=== PATIENT | female | born 1990 | race Caucasian/White ===

== ENCOUNTER → 2019-05-03 14:10 | Outpatient (BNVA) | payer MEDICAID, SELFPAY | PROVIDERS: Family Provider Family Medicine; Visit Provider Nurse Practitioner Family | DX: J02.9 Acute pharyngitis, unspecified (principal) | CPT/HCPCS: 87081; 87880 ==

== ENCOUNTER 2019-05-11 19:18 | Emergency (ER) | payer MEDICAID, SELFPAY | END 2019-05-11 20:53 | disposition home or self-care (01) | LOC: ER 05-21 10:06 | PROVIDERS: Emergency Provider Nurse Practitioner Family; Family Provider Family Medicine | DX: R59.1 Generalized enlarged lymph nodes (principal); J02.9 Acute pharyngitis, unspecified ==

== ENCOUNTER 2019-05-11 19:18 | Emergency (ER) | payer MEDICAID, SELFPAY ==
[2019-05-11 19:21] VITALS: BP 122/77; PULSE 73; RESP 18; TEMP 36.5; O2SAT 100; BMI 21.5
--- NOTE | 2019-05-11 19:43 | XR_ITS ---
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 There is postop changes through the talus with 3 pins seen in the area. These appear to be well posit ioned with no loosening. Pins extend through the calcaneus into the talus with fusion of the joint. XR/XR foot RT min 3V* [id number] IMPRESSION: Stable fusion of a calcaneal talar joint. 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
--- NOTE | 2019-05-11 19:43 | XR_ITS ---
WS: [id number] XR ankle RT min 3V* [id number] REASON FOR EXAM: pain FINDINGS: Fusion of the calcaneal talar joint satisfactory fused. Mild degenerate changes at the ankle mortise including the fibula and lateral tibia. The remaining mortise was normal. XR/XR ankle RT min 3V* [id number] IMPRESSION: Mild degenerate changes along the lateral ankle mortise articulation with the f ibula.
--- NOTE | 2019-05-11 19:46 | ED_ITS ---
HPI - General Adult General: Chief complaint: Nausea/Vomiting/Diarrhea Stated complaint: vomiting/not urinating Time Seen by Provider: 05/11/19 19:26 History of Present Illness: HPI narrative: Patient is worried about swollen lymph glands. Has been nauseated today. Was placed on Keflex earlier in the week was treated for enlarged lymph nodes empiric therapy says ankle and foot hurts has a screw backing out to the heel. Limb close feel better when on anti biotics and when off antibiotics it seems worse MD complaint: Painful lymph nodes Onset (ago): day(s) Radiation: neck Severity: mild Quality: aching Associated symptoms: Deny chest pain, dyspnea, headache(s), nausea, rash or vomiting Review of Systems Const: Denies: fever, chills or body aches Eyes: Denies: change in vision or blurry vision ENMT: Denies: throat pain or nasal congestion Card: Denies: chest pain or shortness of breath on exertion Resp: Denies: shortness of breath, productive cough or non-productive cough GI: Denies: abdominal pain, nausea or vomiting Musc: Reports: extremity pain (Right foot heel) Skin/Breast: Denies: rash Neuro: Denies: headache Psych: Denies: anxiety or depression Hao/Lymph: Reports: tender lymph nodes (Left side neck); Denies: easy bruising PFSH ED PFSH: Social History (Updated 05/11/19 @ 18:04 by Mariela Bowman LPN) Smoking and tobacco status: never smoked Alcohol intake: current Alcohol intake frequency: holidays/special occasions only Course Vital Signs: Vital signs: Vital Signs Temperature 97.7 F 05/11/19 19:21 Pulse Rate 73 05/11/19 19:21 Respiratory Rate 18 05/11/19 19:21 Blood Pressure 122/77 05/11/19 19:21 Pulse Oximetry 100 05/11/19 19:21 Discharge Plan Discharge Prescriptions: No Action cephalexin 500 mg capsule 500 mg PO TID 10 Days Qty: 30 RF: 0 Marinol 5 mg Capsule 5 mg PO TID RF: 0 Coding Level of Care Code ED Travel Registered Nurse Nicu for Jd Alvarez
--- NOTE | 2019-05-11 20:01 | PC.NURSE ---
portable xray at bedside
[2019-05-11 20:02] VITALS: O2SAT 95
[2019-05-11 20:18] LABS: Basophils % 0.2 %; Hematocrit 41.9 % (37.0-47.0); Hemoglobin 13.7 g/dL (11.5-15.3); Lymphocytes # 1.4 10^3/uL (0.8-4.8); Lymphocytes % 26.2 %; Mean Corpuscular HGB Conc 32.7 g/dL (30.0-36.0); Mean Corpuscular Hemoglobin 28.4 pg (28.0-34.0); Mean Corpuscular Volume 86.9 fL (81-99); Mean Platelet Volume 12.4 fL (7.4-10.4); Monocytes # 0.4 10^3/uL (0.2-0.9); Monocytes % 6.7 %; Neutrophils # 3.7 10^3/uL (1.8-7.7); Neutrophils % 66.7 %; Nucleated Red Blood Cells % 0 %; Platelet Count 163 10^3/cmm (130-400); Red Blood Count 4.82 10^6/uL (4.1-5.3); White Blood Count 5.5 10^3/uL (4.0-10.0)
[2019-05-11 20:41] LABS: Alanine Aminotransferase 10 U/L (0-33); Albumin Level 4.6 g/dL (3.5-5.2); Alkaline Phosphatase 70 IU/L (35-105); Anion Gap 17.9 (5-19); Aspartate Amino Transferase 20 U/L (0-32); Blood Urea Nitrogen 9 mg/dL (6-20); Calcium 10.2 mg/dL (8.5-10.5); Carbon Dioxide 24 mmol/L (22-29); Chloride 101 mmol/L (98-107); Globulin 3.2 g/dL (1.3-4.6); Glomerular Filtration Rate 98.3 mL/min (90-130); Glucose 103 mg/dL (65-115); Potassium 3.9 mmol/L (3.5-5.1); Sodium 139 mmol/L (136-145); Total Bilirubin 0.3 mg/dL (0.15-1.2); Total Protein 7.8 g/dL (6.6-8.7)
[2019-05-11 20:53] VITALS: BP 115/77; PULSE 77; O2SAT 97
== END 2019-05-11 20:53 | disposition home or self-care (01) ==
PROVIDERS: Emergency Provider Nurse Practitioner Family; Family Provider Family Medicine
DX: R11.2 Nausea with vomiting, unspecified (principal); R19.7 Diarrhea, unspecified; R59.0 Localized enlarged lymph nodes; M25.571 Pain in right ankle and joints of right foot; Z98.1 Arthrodesis status
CPT/HCPCS: 73610; 73630; 80053; 85025; 87040; 99281; 99283; A9270

== ENCOUNTER 2019-06-02 12:48 | Emergency (ER) | payer MEDICAID, SELFPAY ==
[2019-06-02 13:21] VITALS: BP 131/88; PULSE 79; RESP 18; O2SAT 99; BMI 19.9
== END 2019-06-02 15:00 | disposition left against medical advice (07) ==
LOC: ER 22:13
PROVIDERS: Emergency Provider Physician Assistant; Family Provider Family Medicine; PCP Nurse Practitioner
DX: K92.0 Hematemesis (principal); R19.7 Diarrhea, unspecified; R10.13 Epigastric pain; Z53.21 Procedure and treatment not carried out due to patient leaving prior to being seen by health care provider
CPT/HCPCS: 99281

== ENCOUNTER 2019-09-25 07:57 | Emergency (ER) | payer MEDICAID, SELFPAY ==
[2019-09-25 08:03] VITALS: BMI 20.7
--- NOTE | 2019-09-25 08:06 | W.ED.ABDPA2 ---
HPI - Abdominal Pain General: Chief Complaint: Abdominal Pain Stated Complaint: flank pain, decreased urination Time Seen by Provider: 09/25/19 07:59 Source: patient Mode of arrival: ambulatory Limitations: no limitations History of Present Illness: HPI narrative: Patient is a 29-year-old female who presents to ED today with a complaint of right flank pain and right-sided abdominal pain that initially began approximately 4 to 5 days ago. Patient tells me she does have a history of nephrolithiasis and states her pain today feels similar. She states she is having urinary urgency and hesitancy. She has been continuing to push fluids as much as possible without any relief in symptoms. She reports nausea with vomiting-no hematemesis. Bowel movements have been normal. She has not had any fever/chills. MD elicited complaint: abdominal pain Pertinent past history: kidney stones Onset (ago): day(s) Pain Consistency: constant Location: RUQ, RLQ and R flank Quality: sharp Relieving factors: nothing Associated Symptoms: Reports dysuria, nausea and vomiting; Denies change in bowel habits, change in stool character, chills, constipation, diarrhea, fever(s), heartburn, hematochezia, hematemesis and melena Related Data: Patient : No Review of Systems Const: Denies: fever(s), chills, body aches, fatigue or malaise Card: Denies: chest pain Resp: Denies: dyspnea GI: Reports: abdominal pain, nausea and vomiting; Denies: hematemesis, heartburn, diarrhea, constipation, change in bowel habits, pain on defecation, rectal swelling, change in stool character, hematochezia or melena : Reports: flank pain, difficulty voiding, dysuria, urinary frequency, urinary urgency and urinary hesitancy; Denies: urinary incontinence, genital lesions, genital pruritis, vaginal odor, vaginal bleeding, vaginal discharge or pelvic pain Musc: Reports: back pain (R flank); Denies: neck pain, extremity pain, extremity swelling, joint pain, joint swelling or joint redness Skin/Breast: Denies: rash Neuro: Denies: headache(s), numbness in extremities, weakness in extremities or sensory changes PFSH ED PFSH: Surgical History History of appendectomy History of hysterectomy Hx of cholecystectomy Social History Smoking and tobacco status: never smoked Alcohol intake: current Alcohol intake frequency: holidays/special occasions only Physical Exam Const: COMMON NORMALS: no acute distress, average body habitus, patient oriented x3, no limitations, alert and well nourished GENERAL APPEARANCE: cooperative HENMT: COMMON NORMALS: normocephalic and atraumatic HEAD & SCALP: normocephalic and atraumatic Resp: COMMON NORMALS: normal respiratory effort and clear to auscultation bilaterally AUSCULTATION: clear to auscultation bilaterally Cardio: COMMON NORMALS: regular rate and regular rhythm RATE: regular rate RHYTHM: regular rhythm GI: COMMON NORMALS: Normal to inspection, nondistended, normoactive bowel sounds present, Soft to palpation, No hepatosplenomegaly present and no masses AUSCULTATION: Yes normoactive bowel sounds PALPATION: Yes Soft to palpation, Yes Tenderness to palpation present (GI) (throughout R sided of abdomen) and Yes No hepatosplenomegaly present : BLADDER/KIDNEY EXAM: Yes CVA tenderness on the right Back/Pelvis: GENERAL BACK: Yes CVA tenderness Extremity: COMMON NORMALS: normal to inspection GENERAL: Yes normal exam except as noted Neuro: COMMON NORMALS: patient oriented x3 SENSORIUM/ORIENTATION: Yes alert Skin: COMMON NORMALS: no rashes or lesions noted GENERAL SKIN EXAM: no rashes or lesions noted Course Vital Signs: Vital signs: Vital Signs Pulse Rate 80 09/25/19 11:46 Respiratory Rate 14 09/25/19 11:46 Blood Pressure 113/80 09/25/19 11:46 Pulse Oximetry 100 09/25/19 11:46 MDM - Abdominal Pain MDM Narrative: Medical decision making narrative: Patient's labs here all are non-concerning. UA without evidence of infection. There was no hematuria. CT scan of her abdomen does not show any acute causes for her right-sided flank or abdominal pain. She has known left ovarian and left renal lesions that were present in 2018. Although these are slightly enlarged today but they would not explain patient's pain. They can be followed up as an outpatient with an ultrasound as necessary. After speaking to patient she said her main concern today was to rule out any form of infection stating she is scheduled to have an amputation to her right lower extremity and wanted to make sure she was healthy. Patient feels fine going home at this time. Return to ED precautions given. Lab Data: Labs: Lab Results 09/25/19 09/25/19 09/25/19 Range/Units 08:18 08:18 08:18 WBC 4.9 (4.0-10.0) 10^3/ uL RBC 4.67 (4.1-5.3) 10^6/u L Hgb 13.7 (11.5-15.3) g/dL Hct 42.5 (37.0-47.0) % MCV 91.0 (81-99) fL MCH 29.3 (28.0-34.0) pg MCHC 32.2 (30.0-36.0) g/dL RDW 12.3 (12.1-15.1) % Plt Count 108 L (130-400) 10^3/c mm MPV 12.6 H (7.4-10.4) fL Neut % (Auto) 66.3 % Lymph % (Auto) 23.2 % Burnett % (Auto) 7.3 % Eos % (Auto) 2.2 % Baso % (Auto) 0.8 % Neut # (Auto) 3.3 (1.8-7.7) 10^3/u L Lymph # (Auto) 1.1 (0.8-4.8) 10^3/u L Burnett # (Auto) 0.4 (0.2-0.9) 10^3/u L Eos # (Auto) 0.1 (0.0-0.8) 10^3/u L Baso # (Auto) 0.0 (0.0-0.1) 10^3/u L Nucleated RBC % (a uto) 0 % Nucleated RBCs # 0.0 /100WBC Sodium 140 (136-145) mmol/L Potassium 3.3 L (3.5-5.1) mmol/L Chloride 104 (98-107) mmol/L Carbon Dioxide 25 (22-29) mmol/L Anion Gap 14.3 (5-19) BUN 11 (6-20) mg/dL Creatinine 0.7 (0.5-0.9) mg/dL GFR Calculation 98.3 (90-130) mL/min Glucose 86 (65-115) mg/dL Calculated Osmolal ity 285 (285-295) mOsm/k g Calcium 9.2 (8.5-10.5) mg/dL Total Bilirubin 0.3 (0.15-1.2) mg/dL AST 14 (0-32) U/L ALT 7 (0-33) U/L Alkaline Phosphata se 66 (35-105) IU/L Total Protein 7.2 (6.6-8.7) g/dL Albumin 4.6 (3.5-5.2) g/dL Globulin 2.6 (1.3-4.6) g/dL Lipase 20 (13-60) U/L HCG, Qual Negative (Negative) Urine Color (Yellow) Urine Appearance (CLEAR) Urine pH (5-7) Ur Specific Gravit y (1.005-1.030) Urine Protein (Negative) Urine Glucose (UA) (Normal) Urine Ketones (Negative) Urine Blood (Negative) Urine Nitrate (Negative) Urine Bilirubin (NEGATIVE) Urine Urobilinogen (Negative) mg/dL Ur Leukocyte Karma ase (Negative) 09/25/19 Range/Units 08:30 WBC (4.0-10.0) 10^3/ uL RBC (4.1-5.3) 10^6/u L Hgb (11.5-15.3) g/dL Hct (37.0-47.0) % MCV (81-99) fL MCH (28.0-34.0) pg MCHC (30.0-36.0) g/dL RDW (12.1-15.1) % Plt Count (130-400) 10^3/c mm MPV (7.4-10.4) fL Neut % (Auto) % Lymph % (Auto) % Burnett % (Auto) % Eos % (Auto) % Baso % (Auto) % Neut # (Auto) (1.8-7.7) 10^3/u L Lymph # (Auto) (0.8-4.8) 10^3/u L Burnett # (Auto) (0.2-0.9) 10^3/u L Eos # (Auto) (0.0-0.8) 10^3/u L Baso # (Auto) (0.0-0.1) 10^3/u L Nucleated RBC % (a uto) % Nucleated RBCs # /100WBC Sodium (136-145) mmol/L Potassium (3.5-5.1) mmol/L Chloride (98-107) mmol/L Carbon Dioxide (22-29) mmol/L Anion Gap (5-19) BUN (6-20) mg/dL Creatinine (0.5-0.9) mg/dL GFR Calculation (90-130) mL/min Glucose (65-115) mg/dL Calculated Osmolal ity (285-295) mOsm/k g Calcium (8.5-10.5) mg/dL Total Bilirubin (0.15-1.2) mg/dL AST (0-32) U/L ALT (0-33) U/L Alkaline Phosphata se (35-105) IU/L Total Protein (6.6-8.7) g/dL Albumin (3.5-5.2) g/dL Globulin (1.3-4.6) g/dL Lipase (13-60) U/L HCG, Qual (Negative) Urine Color Yellow (Yellow) Urine Appearance Clear (CLEAR) Urine pH 7.0 (5-7) Ur Specific Gravit y 1.015 (1.005-1.030) Urine Protein Neg (Negative) Urine Glucose (UA) Norm (Normal) Urine Ketones 1+ H (Negative) Urine Blood Neg (Negative) Urine Nitrate Negative (Negative) Urine Bilirubin Neg (NEGATIVE) Urine Urobilinogen Norm (Negative) mg/dL Ur Leukocyte Karma ase Negative (Negative) Imaging Data ^: CT renal: Radiologist's impression: [place] [address] CT Scan Report Signed Patient: Susan Reddy Unit #: [id number] : 1990 Age/Sex: 29 / F ADM Date: 09/25/19 Loc: ER Room/Bed: Attending Dr: Ordering Provider/Ordering MD: Angie Hernandez Date of Service: 09/25/19 Procedure(s): CT kidney stone 31849 Accession Number(s): [id number] Report Number: [id number] WS: [id number] CT ABDOMEN PELVIS TECHNIQUE: Noncontrast CT of the abdomen and pelvis with coronal and sagittal reformatted images. CLINICAL INFORMATION: R flank/R abdominal pain COMPARISON: CT 2 28,018 and 2 26,018 DLP: 698.[address] scans at [facility] use at least one of these dose optimization techniques: automated exposure control; mA and/or kV adjustment per patient size (includes targeted exams where dose is matched to clinical indication); or iterative reconstruction. FINDINGS: Prior postoperative changes cholecystectomy, hysterectomy, and appendectomy. Noncontrast liver is normal. Adrenal glands are normal. Noncontrast spleen is normal. Normal GE junction. Noncontrast pancreas is unremarkable. Lung bases are well aerated. Normal caliber abdominal aorta. Prominent extrarenal pelvises bilaterally. Tiny left calyceal tip calculi. No obstructing renal or ureteral calculi. Incidental prominent right extra renal pelvis. Exophytic left renal lesion not definitely cystic measuring 1.5 cm. This can be followed up with ultrasound. This is increased in size since 2018 Normal caliber abdominal aorta. Lobular left ovarian/adnexal cystic lesion present in 2018 is similar in appearance but increased in size. Lobulated lesion measures 4.3 x 2.1 cm. This can be followed up with pelvic ultrasound. No free fluid in the pelvis. CT/CT kidney stone [id number] IMPRESSION: 1. No evidence of obstructing renal or ureteral calculi. No hydronephrosis. 2. Left ovarian/adnexal lobulated cystic lesion increased in size since 2018 measuring 4.3 x 2.1 cm likely ovarian cyst. This can be followed up with ultrasound. 3. No free fluid in the pelvis. 4. Prior cholecystectomy and hysterectomy. 5. Exophytic left renal lesion measuring 1.5 cm not definitely cystic increased in size since 2018. This can be further evaluated ultrasound. Dictated By: Kayden Hernández MD Signed By: Kayden Heránndez MD Signed Date/Time: 09/25/19 1104 DD/ 1055 Discharge Plan Discharge Patient Disposition: Home, Self-Care Clinical Impression: Abdominal wall pain in right flank Condition: Stable Prescriptions: No Action pantoprazole [Protonix] 40 mg tablet,delayed release (DR/EC) 40 mg PO BID RF: 0 dronabinol [Marinol] 5 mg Capsule 5 mg PO TID RF: 0 Discharge Orders: Discharge Order (Routine); Ordered 09/25/19 Ordered By: Angie Hernandez Referrals: Helder Garcia MD [Family Provider] - Lizabeth Hylton FNP [Primary Care Provider] - Patient Instructions: Abdominal Pain (ED) Activity Restrictions/Additional Instructions: As discussed please follow-up with your primary care provider if symptoms do not begin to improve. You may return to the emergency department at anytime for worsening pain, fevers, repetitive vomiting, or any other concerns you may have. Discharge Date/Time: 09/25/19 11:47 Coding Level of Care Code ED Enterprise Architect Manager for Chg Fwd Exam Comprehensive
--- NOTE | 2019-09-25 08:15 | CT_ITS ---
WS: [id number] CT ABDOMEN PELVIS TECHNIQUE: Noncontrast CT of the abdomen and pelvis with coronal and sagittal reformatted images. CLINICAL INFORMATION: R flank/R abdominal pain COMPARISON: CT 2 28,018 and 2 ,018 DLP: 698.[address] scans at [facility] use at least one of these dose optimization techniques: automat ed exposure control; mA and/or kV adjustment per patient size (includes targeted exams where dose is matched to clinical indication); or iterative reconstruction. FINDINGS: Prior postoperative changes cholecystectomy, hysterectomy, and appendectomy. Noncontrast liver is nor mal. Adrenal glands are normal. Noncontrast spleen is normal. Normal GE junction. Noncontrast pancrea s is unremarkable. Lung bases are well aerated. Normal caliber abdominal aorta. Prominent extrarenal pelvises bilaterally. Tiny left calyceal tip calculi. No obstructing renal or ur eteral calculi. Incidental prominent right extra renal pelvis. Exophytic left renal lesion not defini tely cystic measuring 1.5 cm. This can be followed up with ultrasound. This is increased in size sinc e 2018 Normal caliber abdominal aorta. Lobular left ovarian/adnexal cystic lesion present in 2018 is similar in appearance but increased in size. Lobulated lesion measures 4.3 x 2.1 cm. This can be followed up with pelvic ultrasound. No free fluid in the pelvis. CT/CT kidney stone [id number] IMPRESSION: 1. No evidence of obstructing renal or ureteral calculi. No hydronephrosis. 2. Left ovarian/adnexal lobulated cystic lesion increased in size since 2018 m easuring 4.3 x 2.1 cm likely ovarian cyst. This can be followed up with ultraso und. 3. No free fluid in the pelvis. 4. Prior cholecystectomy and hysterectomy. 5. Exophytic left renal lesion measuring 1.5 cm not definitely cystic increase d in size since 2018. This can be further evaluated ultrasound.
[2019-09-25 08:24] VITALS: BP 129/83; PULSE 79; RESP 18; O2SAT 100
[2019-09-25] MEDS: ondansetron 2 mg/ML SDV 2 mL 4 MG IVP (08:33)
[2019-09-25] MEDS: sodium chloride 0.9% 1,000 ML 999 ML IV (08:33)
[2019-09-25 08:55] LABS: Basophils % 0.8 %; Eosinophils # 0.1 10^3/uL (0.0-0.8); Eosinophils % 2.2 %; Hematocrit 42.5 % (37.0-47.0); Hemoglobin 13.7 g/dL (11.5-15.3); Lymphocytes # 1.1 10^3/uL (0.8-4.8); Lymphocytes % 23.2 %; Mean Corpuscular HGB Conc 32.2 g/dL (30.0-36.0); Mean Corpuscular Hemoglobin 29.3 pg (28.0-34.0); Mean Platelet Volume 12.6 fL (7.4-10.4); Monocytes # 0.4 10^3/uL (0.2-0.9); Monocytes % 7.3 %; Neutrophils # 3.3 10^3/uL (1.8-7.7); Neutrophils % 66.3 %; Nucleated Red Blood Cells % 0 %; Platelet Count 108 10^3/cmm (130-400); Red Blood Count 4.67 10^6/uL (4.1-5.3); Red Cell Distribution Width 12.3 % (12.1-15.1); White Blood Count 4.9 10^3/uL (4.0-10.0)
[2019-09-25 09:00] VITALS: BP 110/84; PULSE 75; RESP 18; O2SAT 100
[2019-09-25 09:01] LABS: HCG, Serum Qual Negative (Negative)
[2019-09-25 09:03] LABS: Add Urine Microscopic? NO
[2019-09-25 09:12] LABS: Alanine Aminotransferase 7 U/L (0-33); Albumin Level 4.6 g/dL (3.5-5.2); Alkaline Phosphatase 66 IU/L (35-105); Anion Gap 14.3 (5-19); Aspartate Amino Transferase 14 U/L (0-32); Blood Urea Nitrogen 11 mg/dL (6-20); Calcium 9.2 mg/dL (8.5-10.5); Carbon Dioxide 25 mmol/L (22-29); Chloride 104 mmol/L (98-107); Globulin 2.6 g/dL (1.3-4.6); Glomerular Filtration Rate 98.3 mL/min (90-130); Glucose 86 mg/dL (65-115); Lipase 20 U/L (13-60); Osmolality Calculated 285 mOsm/kg (285-295); Potassium 3.3 mmol/L (3.5-5.1); Sodium 140 mmol/L (136-145); Total Bilirubin 0.3 mg/dL (0.15-1.2); Total Protein 7.2 g/dL (6.6-8.7)
[2019-09-25 09:13] LABS: Bilirubin Urine Neg (NEGATIVE); Blood Urine Neg (Negative); Glucose Urine UA Norm (Normal); Ketones Urine 1+ (Negative); Leukocyte Esterase Urine Negative (Negative); Nitrate Urine Negative (Negative); Protein Urine Neg (Negative); Specific Gravity, Urine 1.015 (1.005-1.030); Urine Appearance Clear (CLEAR); Urine Color Yellow (Yellow); Urobilinogen Urine Norm (Negative)
[2019-09-25 09:15] VITALS: RESP 16
[2019-09-25] MEDS: morphine 4 mg/mL SDV 1 mL IVP (09:15)
[2019-09-25 10:13] VITALS: BP 116/73; PULSE 86; RESP 16; O2SAT 100
[2019-09-25] MEDS: promethazine 25 mg Tablet PO (10:25)
[2019-09-25 10:35] VITALS: BP 110/64; PULSE 79; RESP 14; O2SAT 100
[2019-09-25 11:46] VITALS: BP 113/80; PULSE 80; RESP 14; O2SAT 100
== END 2019-09-25 11:47 | disposition home or self-care (01) ==
PROVIDERS: Emergency Provider Physician Assistant; Family Provider Family Medicine; PCP Nurse Practitioner
DX: R10.9 Unspecified abdominal pain (principal)
CPT/HCPCS: 12345; 36415; 74176; 80053; 81003; 83690; 84703; 85025; 96361; 96374; 96375; 99283; J2270; J2405; J7030; Q0169

== ENCOUNTER 2019-11-07 23:10 | Emergency (ER) | payer MEDICAID, SELFPAY ==
[2019-11-07 23:28] VITALS: BP 108/74; PULSE 110; RESP 18; TEMP 36.6; O2SAT 100; BMI 19.2
[2019-11-08 00:46] VITALS: BP 126/78; PULSE 96; RESP 18; O2SAT 99
--- NOTE | 2019-11-08 00:51 | ED_ITS ---
HPI - General Adult General: Chief complaint: General Medical Stated complaint: poss infection Time Seen by Provider: 11/08/19 00:50 History of Present Illness: HPI narrative: Patient is a 29-year-old female who comes to the ED with left forearm pain and evaluation of possible skin infection at surgical site. Patient says that tonight when getting out of the shower she fell and hit her left forearm. She now is having some left forearm pain. She is also worried about her surgical site on her right ankle and concerned that it could be getting infected. Patient is in a posterior leg splint with stirrups and she got it wet tonight while in the shower. Patient contacted her surgeon about right splint and it getting wet and he instructed her to go to the ED to get a splint reapplied. Patient just started taking Keflex today. Patient is able to move left arm and also move left hand and fingers but complains of having some pain when she does it. Associated symptoms: Deny chest pain, dyspnea, headache(s), nausea, rash, palpitations or vomiting Review of Systems Narrative: Patient complaining of getting her splint wet today and it needs to be redone. Const: Denies: fever(s), chills or fatigue Eyes: Denies: change in vision or eye discomfort ENMT: Denies: throat pain, odynophagia, nasal discharge or nasal congestion Card: Denies: chest pain, palpitations, edema, swelling of feet/ankles, dyspnea on exertion or orthopnea Resp: Denies: dyspnea, productive cough or non-productive cough GI: Denies: abdominal pain, nausea, vomiting, diarrhea, constipation or hematochezia : Denies: flank pain, dysuria or hematuria Musc: Reports: extremity pain (left forearm); Denies: neck pain, back pain or extremity swelling Skin/Breast: Denies: rash or new lesions Neuro: Denies: headache(s), numbness in extremities or weakness in extremities PFSH ED PFSH: Surgical History History of appendectomy History of hysterectomy Hx of cholecystectomy Social History Smoking and tobacco status: never smoked Alcohol intake: current Alcohol intake frequency: holidays/special occasions only Physical Exam Const: COMMON NORMALS: no acute distress, patient oriented x3 and alert GENERAL APPEARANCE: cooperative HENMT: COMMON NORMALS: normocephalic HEAD & SCALP: normocephalic MOUTH: Normal oral and palatal mucosa present THROAT: posterior oropharynx normal and uvula midline Neck/C-Spine: COMMON NORMALS: supple GENERAL: Yes normal visual inspection Resp: COMMON NORMALS: normal respiratory effort, No retractions, No use of accessory muscles and clear to auscultation bilaterally AUSCULTATION: clear to auscultation bilaterally Cardio: COMMON NORMALS: regular rate, regular rhythm, S1 normal heart sound present, S2 normal heart sound present, No gallops present (Cardio), No clicks present (Cardio), No murmurs present (Cardio) and Peripheral pulses 2+ throughout RATE: regular rate RHYTHM: regular rhythm HEART SOUNDS: S1 normal heart sound present and S2 normal heart sound present PERIPHERAL PULSES: Peripheral pulses 2+ throughout GI: COMMON NORMALS: Normal to inspection, nondistended, normoactive bowel sounds present, Soft to palpation, non-tender and no masses PALPATION: Yes Soft to palpation : COMMON NORMALS: Yes no CVA tenderness BLADDER/KIDNEY EXAM: Yes no CVA tenderness Back/Pelvis: COMMON NORMALS: no CVA tenderness Extremity: NARRATIVE EXTREMITY EXAM: Patient had posterior leg splint with stirrups on right lower leg. It was wet I removed the splint and examined the surgical site. Surgical site appears to be healing well there are no obvious signs of infection seen. GENERAL: Yes normal exam except as noted LEFT UPPER EXTREMITY: Yes lower arm Left lower arm: Yes inspection (No visible deformity, no edema and no ecchymosis seen.), Yes palpation (Mild tenderness around midshaft forearm.) and Yes neurovascular exam (Intact) Neuro: COMMON NORMALS: patient oriented x3 and moves all extremities SENSORIUM/ORIENTATION: Yes alert Skin: NARRATIVE SKIN EXAM: Patient's surgical site on right lower leg appears to be healing well and no signs of infection seen. GENERAL SKIN EXAM: dry skin Course Vital Signs: Vital signs: Vital Signs Temperature 97.9 F 11/07/19 23:28 Pulse Rate 96 11/08/19 00:46 Respiratory Rate 18 11/08/19 00:46 Blood Pressure 126/78 11/08/19 00:46 Pulse Oximetry 99 11/08/19 00:46 MDM - General Adult MDM Narrative: Medical decision making narrative: Patient is a 29-year-old female comes to the ED after having a fall. She is complaining of left forearm pain. She also has posterior leg splint with stirrups on right lower extremity and she got it wet today. Patient contacted her surgeon and he told her to go to the ED and get a new splint placed. Patient is also concerned surgical site infection on right lower extremity. Current splint was removed and surgical site appears to be healing well and no signs of infection seen. Left forearm had no visible deformity, swelling or ecchymosis seen. X-ray of the left forearm showed no acute fractures or findings. Posterior leg splint with stirrups was reapplied to patient's right leg. She was given a dose of Rocephin to help ease her concerns of possible surgical site infection. She was also just put on cephalexin by her surgeon. Patient was discharged and she has a follow-up appointment with her surgeon this coming Sunday. I told her to continue taking her previously prescribed cephalexin and take Tylenol or ibuprofen for pain. Return to ED precautions given. Patient understood and agreed with plan. Imaging Data^: Xray Ortho: Attestation: I personally reviewed and interpreted this imaging study as follows: My impression: Left forearm x-ray?no acute fractures or findings. Discharge Plan Discharge Patient Disposition: Home Clinical Impression: Left forearm pain Fall as cause of accidental injury at home as place of occurrence Qualifiers: Encounter type: initial encounter Qualified Code(s): W19.XXXA - Unspecified fall, initial encounter Condition: Stable Prescriptions: No Action pantoprazole [Protonix] 40 mg tablet,delayed release (DR/EC) 40 mg PO BID RF: 0 dronabinol [Marinol] 5 mg Capsule 5 mg PO TID RF: 0 Discharge Orders: Discharge Order (Routine); Ordered 11/08/19 Ordered By: Shadi Trinh Discharge Diet: Regular Discharge Activity: Limit activity as instructed Activity Restrictions/Additional Instructions: Follow-up with medical provider as directed in the next 7-10 days. Continue taking home medications as prescribed including your recently prescribed antibiotic. Take Tylenol or ibuprofen for pain. Return to the ER or your medical provider if condition worsens. Please read and understand discharge instructions. If any questions, please ask. Coding Level of Care Code ED Hooker Inspector for Jd Fwd Exam Comprehensive
--- NOTE | 2019-11-08 01:15 | XRR_ITS ---
PROCEDURE INFORMATION: Exam: XR Left Forearm Exam date and time: 11/08/2019 1:18 AM Age: 29 years old Clinical indication: Injury or trauma; Fall; Initial encounter; Blunt trauma (contusions or hematomas; Arm, lower; Left; Additional info: Fall with forearm pain TECHNIQUE: Imaging protocol: XR Left forearm. Views: 2 views. COMPARISON: No relevant prior studies available. FINDINGS: Bones/joints: Obliquity of the carpal region on the frontal image. No apparent fracture or dislocation. Slight negative ulnar variance. Soft tissues: Unremarkable. XR/XR forearm LT 2V [id number] IMPRESSION: No fracture.
[2019-11-08] MEDS: HYDROcodone-acetaminophen 7.5-325 mg Tablet 1 TAB PO (03:02)
--- NOTE | 2019-11-08 03:17 | PC.NURSE ---
Notified midlevel provider of patient's pain. NAD noted. Pain has not been relieved after the [place].
[2019-11-08 04:02] VITALS: RESP 18
[2019-11-08] MEDS: oxyCODONE-APAP 5-325 mg Tablet 1 TAB PO (04:02)
[2019-11-08] MEDS: cefTRIAXone 1,000 MG, lidocaine 1% 2.1 ML in SYRINGE 1 EACH 2.1 MG IM (04:03)
[2019-11-08 04:45] VITALS: BP 117/77; PULSE 87; RESP 16; TEMP 37.1; O2SAT 99
== END 2019-11-08 04:50 | disposition home or self-care (01) ==
PROVIDERS: Emergency Provider Physician Assistant
DX: M79.632 Pain in left forearm (principal)
CPT/HCPCS: 12345; 29515; 73090; 96372; 99281; 99283; J0696

== ENCOUNTER 2019-12-01 14:38 | Emergency (ER) | payer MEDICAID, SELFPAY ==
[2019-12-01 14:50] VITALS: BP 107/66; PULSE 96; RESP 17; TEMP 36.6; O2SAT 99; BMI 18.4
--- NOTE | 2019-12-01 15:41 | XRR_ITS ---
PROCEDURE INFORMATION: Exam: XR Right Foot Complete Exam date and time: 12/01/2019 4:10 PM Age: 29 years old Clinical indication: Prior surgery; Surgery date: 3-7 days post-operative; Surgery type: Orif; Patient HX: Post surgery pain swelling redness right foot/ankle; Additional info: Infection S/P surgery TECHNIQUE: Imaging protocol: XR Right foot. Views: 3 or more views. COMPARISON: CR XR foot RT min 3V* [id number] 05/11/2019 7:47 PM FINDINGS: Bones/joints: Postoperative changes of fusion of the tibiotalar and talocalcaneal joints are noted with multiple screws and a linear wire extending from the tibia through the calcaneus. Prior screw tracks are also noted in the tibia and calcaneus from hardware removal. There is abundant lucency surrounding the proximal screw spanning the tibiofibular joint. There is a fracture or osteotomy of the fibula just proximal to the screw on the lateral view. No hardware fracture. No definite osteomyelitis. No acute fracture in the midfoot or forefoot. Soft tissues: There is soft tissue edema along the lateral ankle and hindfoot. XR/XR foot RT min 3V* [id number] IMPRESSION: 1. Postoperative fusion of the tibiotalar and talocalcaneal joints with multiple screws and hardware revision. There is soft tissue edema lateral to the ankle and distal leg. 2. There is either an osteotomy or fracture of the distal fibula just proximal to the most proximal screw. This has a subacute or chronic appearance with bony remodeling and callus with some lucency along the screw. This could indicate a fracture through chronic osteomyelitis. Correlation with the surgical history would be most helpful. This fibula abnormality is new compared to the old exam but there also has been interval hardware revision compared to the prior films at this facility and this may simply be postoperative changes/osteotomy. Otherwise, no additional acute abnormality and no definite osteomyelitis.
--- NOTE | 2019-12-01 15:42 | USR_ITS ---
PROCEDURE INFORMATION: Exam: US Right Non-Vascular Joint or Other Extremity Structure, Limited Lower Extremity Exam date and time: 12/01/2019 4:16 PM Age: 29 years old Clinical indication: Patient status: Conscious; Pain: Pain RT ankle swollen tissue; Prior surgery; Surgery date: <1 month; Surgery type: Bone; Patient HX: Multiple surgerys; Additional info: ? Abscess right foot TECHNIQUE: Imaging protocol: Right US joint or other nonvascular extremity structure or structures. Real-time ultrasound with image documentation. Limited study. Exam focused on the lower extremity in the region of clinical interest. COMPARISON: No relevant prior studies available. FINDINGS: Soft tissues: The lateral ankle was evaluated. There is heterogeneous echogenicity in the subcutaneous fat adjacent to the right ankle. The images appear to be overlying the lateral malleolus with probable imaging of the peroneal tendons with surrounding mild tenosynovitis and increased echogenicity of the adjacent/overlying subcutaneous fat with internal echoes or debris concerning for soft tissue fluid collection such as a hematoma or abscess. No foreign body. US/US soft tissue/extremity [id number] IMPRESSION: Heterogeneous soft tissues right ankle concerning for hematoma versus abscess with the probable small amount of peroneal tendon tenosynovitis.
--- NOTE | 2019-12-01 16:00 | W.ED.SKABFB ---
HPI - Skin/Abscess/Foreign Bdy General: Chief complaint: Skin/Abscess/Foreign Body Stated complaint: abcess near incision post surgery Time Seen by Provider: 12/01/19 15:32 History of Present Illness: HPI narrative: 29-year-old female patient presents to the emergency department with 2-day history of swelling at her incision site located on the right lateral foot. 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. She reports completed antibiotics last week. She denies fever or chills, she reports pain is intense and is requesting something for pain. Reports Tylenol 3 hydrocodone and Percocet at home, she denies use of these medications due to nausea. Zofran was offered but she reports does not like the way Zofran makes her feel. She reports has appointment with Ortho surgeon in [place] on Sunday, in 2 days. MD complaint: abscess/boil (left foot) Onset (ago): day(s) (2-3) Tetanus up to date: yes Location: R foot (lateral side) Severity: moderate Severity scale (1-10): 6 Quality: aching, sharp and constant Pain Consistency: constant Relieving factors: none Exacerbating factors: immobilization and rest Context: recent antibiotic Associated symptoms: Reports no associated symptoms; Deny chills, fever(s), nausea or vomiting Treatments prior to arrival: NSAID Review of Systems General: Reports: 10 or more systems reviewed and unremarkable except in HPI and below Const: Denies: fever(s), chills or diaphoresis Eyes: Denies: blurry vision or eye redness ENMT: Denies: throat pain, dental pain or disequilibrium Card: Denies: chest pain, palpitations or irregular heart rhythm Resp: Denies: dyspnea, productive cough, non-productive cough or wheezing GI: Denies: abdominal pain, nausea or vomiting : Denies: difficulty voiding or dysuria Musc: Denies: back pain Skin/Breast: Reports: erythema (lateral right foot), skin swelling (right lateral foot), changes in skin color (at incision site, right foot) and surgical incision (right lateral ankle/foot); Denies: rash or pruritus Neuro: Denies: headache(s), weakness in extremities or behavioral changes Hao/Lymph: Denies: easy bruising PFSH ED PFSH: Surgical History History of appendectomy History of hysterectomy Hx of cholecystectomy Social History Smoking and tobacco status: never smoked Alcohol intake: current Alcohol intake frequency: holidays/special occasions only Physical Exam Const: COMMON NORMALS: no acute distress, patient oriented x3, healthy appearing and alert GENERAL APPEARANCE: cooperative, comfortable and well hydrated HENMT: COMMON NORMALS: normocephalic, Normal external nose present and moist oral mucous membranes HEAD & SCALP: normocephalic NOSE: Normal external nose present Eye: COMMON NORMALS: Equal, round and reactive pupils present and EOMs intact bilaterally GENERAL EYE: appearance normal, both eyes and all related structures PUPIL: Yes Equal, round and reactive pupils present Neck/C-Spine: COMMON NORMALS: full ROM and no lymphadenopathy GENERAL: Yes normal visual inspection and Yes trachea midline CERVICAL SPINE: Yes cervical ROM normal Lymph: LYMPHATIC: no lymphadenopathy noted Chest: COMMONS NORMALS: normal inspection of the chest Resp: COMMON NORMALS: normal respiratory effort and clear to auscultation bilaterally AUSCULTATION: clear to auscultation bilaterally Cardio: COMMON NORMALS: regular rhythm, S1 normal heart sound present and S2 normal heart sound present RHYTHM: regular rhythm HEART SOUNDS: S1 normal heart sound present and S2 normal heart sound present GI: COMMON NORMALS: Soft to palpation and non-tender INSPECTION: Yes normal to inspection PALPATION: Yes Soft to palpation : COMMON NORMALS: Yes no CVA tenderness BLADDER/KIDNEY EXAM: Yes no CVA tenderness Back/Pelvis: COMMON NORMALS: no CVA tenderness and thoracic and lumbar spine normal to inspection Extremity: COMMON NORMALS: normal to inspection and capillary refill normal GENERAL: Yes normal exam except as noted RIGHT LOWER EXTREMITY: Yes foot & digits (healing surgical incision, vertical) Right ankle: Yes ROM (Dorsiflexion and flexion intact) and Yes neurovascular exam (Distally intact) and Yes foot & digits (Right lateral foot with area of edema to the inferior side of the incision, small, no erythema, no drainage, incision appears healing, incision horizontal with contour of foot) Neuro: COMMON NORMALS: patient oriented x3 and no focal motor deficits SENSORIUM/ORIENTATION: Yes alert Psych: COMMON NORMALS: mental status grossly normal, Normal thought process present and cooperative ACTIVITY/MOTOR BEHAVIOR: Yes appropriate eye contact THOUGHT PROCESS: Normal thought process present Skin: COMMON NORMALS: no rashes or lesions noted and turgor normal GENERAL SKIN EXAM: no rashes or lesions noted and turgor normal Course ED course: Patient left AMA, without provider knowledge, Negative inicision abscess confirmed by US - X-ray of the RLE pending VRAD read due to recent surgery - APAP offered and she declined. Vital Signs: Vital signs: Vital Signs Temperature 97.9 F 12/01/19 14:50 Pulse Rate 96 12/01/19 14:50 Respiratory Rate 17 12/01/19 14:50 Blood Pressure 107/66 12/01/19 14:50 Pulse Oximetry 99 12/01/19 14:50 Discharge Plan Discharge Patient Disposition: Left Against Medical Advice Prescriptions: No Action dronabinol [Marinol] 5 mg Capsule 5 mg PO TID RF: 0 [place] 5-325 mg Tablet 1 tab PO Q4H PRN (Reason: Pain) RF: 0 acetaminophen-codeine 300-30 mg tablet 1 - 2 tab PO Q6H PRN (Reason: Pain) RF: 0 gabapentin 300 mg Capsule 900 mg PO TID PRN (Reason: UNKNOWN) RF: 0 ergocalciferol (vitamin D2) 1,250 mcg (50,000 unit) Capsule 50,000 unit PO Q7D RF: 0 ibuprofen 600 mg Tablet 600 mg PO PRN RF: 0 hydroxyzine pamoate 25 mg Capsule 25 mg PO QID RF: 0 Vitamin C 1 tab PO DAILY RF: 0 Vitamin D3 1 tab PO TID RF: 0 Discharge Date/Time: 12/01/19 16:36 Coding Level of Care Code ED Crushing Machine Operator for Chg Fwd Exam Comprehensive
== END 2019-12-01 16:36 | disposition left against medical advice (07) ==
PROVIDERS: Emergency Provider Nurse Practitioner Family
DX: L98.9 Disorder of the skin and subcutaneous tissue, unspecified (principal); Z53.21 Procedure and treatment not carried out due to patient leaving prior to being seen by health care provider
CPT/HCPCS: 12345; 73630; 76882; 99282; 99283

== ENCOUNTER 2021-01-08 15:14 | Emergency (ER) | payer MEDICAID, SELFPAY ==
--- NOTE | 2021-01-08 15:51 | XRR_ITS ---
PROCEDURE INFORMATION: Exam: XR Right Foot Exam date and time: 01/08/2021 3:51 PM Age: 30 years old Clinical indication: Pain; Foot; Right; Prior surgery; Additional info: Foot pain, base of 5th toe TECHNIQUE: Imaging protocol: XR Right foot. Views: 3 or more views. Total images: 3 COMPARISON: No relevant prior studies available. FINDINGS: Bones/joints: No visible evidence of active or acute osseous pathology. No visible tarsal coalition. Status post fusion arthrodesis of the ankle joint. Hardware appears intact without evidence for loosening or migration. Soft tissues: Unremarkable. XR/XR foot RT min 3V* [id number] IMPRESSION: No visible acute osseous abnormality. Radiation Dose CTDIVOL = (mGy): DLP = (mGy-cm)
--- NOTE | 2021-01-08 15:54 | ED_ITS ---
HPI - Extremity Problem General: Chief complaint: Extremity Injury, Lower Stated complaint: Pain Outside Rgt foot Time Seen by Provider: 01/08/21 15:43 History of Present Illness: HPI Narrative: 30-year-old female presents due to pain at the base of her right fifth toe. States it started approximately a week and half ago. States she previously has had many surgeries on her right ankle and has had osteomyelitis in this area in the past. She states she has an appointment with her orthopedic surgeon on Sunday. Denies any fevers or chills. Denies any pain in the ankle joint. States she does favor placing weight on the lateral side of her foot due to chronic instability in her ankle. States she has previously been treated for osteomyelitis and septic arthritis by her orthopedic surgeon. Denies history of gout but states that when she called the office they directed her to go to the ER and obtain a blood test for gout. Review of Systems Narrative: - CONSTITUTIONAL: Denies weight loss, fever and chills. - HEENT: Denies changes in vision and hearing. - RESPIRATORY: Denies SOB and cough. - CV: Denies palpitations and CP. - GI: Denies abdominal pain, nausea, vomiting and diarrhea. - : Denies dysuria and urinary frequency. - MSK: As above - SKIN: Denies rash and pruritus. - NEUROLOGICAL: Denies headache, weakness, numbness and syncope. - PSYCHIATRIC: Denies suicidal ideation PFSH ED PFSH: Surgical History History of appendectomy History of hysterectomy Hx of cholecystectomy Social History Smoking and tobacco status: never smoked Alcohol intake: current Alcohol intake frequency: holidays/special occasions only Physical Exam Narrative: EXAM NARRATIVE: - GENERAL: Alert and oriented x 3. No acute distress. Well-nourished. - EYES: EOMI. Anicteric. - HENT: Atraumatic, no C-spine tenderness. Moist mucous membranes. No scleral icterus. No cervical lymphadenopathy. - LUNGS: Clear to auscultation bilaterally. No accessory muscle use. Equal lung sounds bilaterally. No respiratory distress. - CARDIOVASCULAR: Regular rate and rhythm. No murmur. No JVD. - ABDOMEN: Soft, non-tender and non-distended. Negative CVA tenderness bilaterally, no rebound or guarding, negative Solorio sign. No palpable masses. - EXTREMITIES: No edema. Well-healed surgical scar of the lateral right ankle. There is tenderness over the base of the fifth toe. Extremities otherwise neurovascularly intact. There is no erythema or warmth. Able to bear weight. Good capillary refill in all toes. No sign of bony ligamentous laxity. No crepitus induration or free gas. - SKIN: No rashes or lesions. Warm. - NEUROLOGIC: No meningismus or focal neurological deficits. CN II-XII grossly intact. - PSYCHIATRIC: Cooperative. Appropriate mood and affect. Course Vital Signs: Vital signs: Vital Signs Temperature 98.3 F 01/08/21 16:20 Pulse Rate 62 01/08/21 18:08 Respiratory Rate 18 01/08/21 18:08 Blood Pressure 102/80 01/08/21 18:08 Pulse Oximetry 96 01/08/21 18:08 MDM - Extremity (Nontraumatic) MDM Narrative: Medical decision making narrative: 30-year-old female presents due to right foot pain. On exam does have well-healed surgical scar from previous ankle surgery. However does not have any sign of focal infection on exam and is neurovascularly intact. White count and CRP are within normal. Remainder of lab work is unremarkable. There is no uric acid elevation. States the pain has been ongoing for a week and a half. Do not see any signs of DVT. X-ray does not reveal any fracture or dislocation is no sign of osteomyelitis. She already has scheduled follow-up with orthopedic surgery. She is already been on various IV and oral antibiotic combinations. This time I do not believe further antibiotics are required as there is no sign of acute infection. When I tried to discuss the results with the patient she became very upset refused to acknowledge the results. She then eloped prior to receiving paperwork or signing an AMA form. I do not believe she was altered in any way and I do believe she has capacity to make this decision. Lab Data: Labs: Lab Results 01/08/21 01/08/21 16:40 16:40 WBC 4.7 10^3/uL 10^3/ uL (4.0-10.0) RBC 5.14 10^6/uL 10^6 /uL (4.1-5.3) Hgb 14.9 g/dL g/dL (11.5-15.3) Hct 46.4 % % (37.0-47.0) MCV 90.3 fl fl (81-99) MCH 29.0 pg pg (28.0-34.0) MCHC 32.1 g/dL g/dL (30.0-36.0) RDW 12.2 % % (12.1-15.1) Plt Count 210 10^3/cmm 10^3 /cmm (130-400) MPV 11.4 fL H fL (7.4-10.4) Neut % (Auto) 53.5 % % Lymph % (Auto) 34.6 % % [place] % (Auto) 8.2 % % Eos % (Auto) 2.8 % % Baso % (Auto) 0.9 % % Neut # (Auto) 2.49 10^3/uL 10^3 /uL (1.8-7.7) Lymph # (Auto) 1.6 10^3/uL 10^3/ uL (0.8-4.8) [place] # (Auto) 0.4 10^3/uL 10^3/ uL (0.2-0.9) Eos # (Auto) 0.1 10^3/uL 10^3/ uL (0.0-0.8) Baso # (Auto) 0.0 10^3/uL 10^3/ uL (0.0-0.1) Nucleated RBC % (a uto) 0 % % Nucleated RBCs # 0.0 /100WBC /100W BC Sodium 141 mmol/L mmol/L (136-145) Potassium 3.9 mmol/L mmol/L (3.5-5.1) Chloride 103 mmol/L mmol/L (98-107) Carbon Dioxide 29 mmol/L mmol/L (22-29) Anion Gap 12.9 (5-19) BUN 11 mg/dL mg/dL (6-20) Creatinine 0.7 mg/dL mg/dL (0.5-0.9) GFR Calculation 97.6 mL/min mL/mi n (90-130) Glucose 69 mg/dL mg/dL (65-115) Calculated Osmolal ity 290 mOsm/kg mOsm/ kg (285-295) Uric Acid 3.8 mg/dL mg/dL (2.4-5.7) Calcium 10.2 mg/dL mg/dL (8.5-10.5) C-Reactive Protein 0.6 mg/L mg/L (0.0-4.9) Discharge Plan Discharge Patient Disposition: Left Against Medical Advice Prescriptions: No Action dronabinol [Marinol] 5 mg Capsule 5 mg PO TID RF: 0 [place] 5-325 mg Tablet 1 tab PO Q4H PRN (Reason: Pain) RF: 0 acetaminophen-codeine 300-30 mg tablet 1 - 2 tab PO Q6H PRN (Reason: Pain) RF: 0 gabapentin 300 mg Capsule 900 mg PO TID PRN (Reason: UNKNOWN) RF: 0 ergocalciferol (vitamin D2) 1,250 mcg (50,000 unit) Capsule 50,000 unit PO Q7D RF: 0 ibuprofen 600 mg Tablet 600 mg PO PRN RF: 0 hydroxyzine pamoate 25 mg Capsule 25 mg PO QID RF: 0 Vitamin C 1 tab PO DAILY RF: 0 Vitamin D3 1 tab PO TID RF: 0 Coding Level of Care Code ED Business Continuity Strategy Director for Chg Antonio
[2021-01-08 16:02] VITALS: BP 111/72; PULSE 60; RESP 18; TEMP 36.7; O2SAT 99; BMI 17.7
[2021-01-08 16:20] VITALS: BP 108/68; PULSE 60; PULSE 79; RESP 17; TEMP 36.8; O2SAT 98
[2021-01-08 16:59] LABS: Basophils % 0.9 %; Eosinophils # 0.1 10^3/uL (0.0-0.8); Eosinophils % 2.8 %; Hematocrit 46.4 % (37.0-47.0); Hemoglobin 14.9 g/dL (11.5-15.3); Lymphocytes # 1.6 10^3/uL (0.8-4.8); Lymphocytes % 34.6 %; Mean Corpuscular HGB Conc 32.1 g/dL (30.0-36.0); Mean Corpuscular Volume 90.3 fl (81-99); Mean Platelet Volume 11.4 fL (7.4-10.4); Monocytes # 0.4 10^3/uL (0.2-0.9); Monocytes % 8.2 %; Neutrophils # 2.49 10^3/uL (1.8-7.7); Neutrophils % 53.5 %; Nucleated Red Blood Cells % 0 %; Platelet Count 210 10^3/cmm (130-400); Red Blood Count 5.14 10^6/uL (4.1-5.3); Red Cell Distribution Width 12.2 % (12.1-15.1); White Blood Count 4.7 10^3/uL (4.0-10.0)
[2021-01-08 17:20] LABS: Anion Gap 12.9 (5-19); Blood Urea Nitrogen 11 mg/dL (6-20); C Reactive Protein 0.6 mg/L (0.0-4.9); Calcium 10.2 mg/dL (8.5-10.5); Carbon Dioxide 29 mmol/L (22-29); Chloride 103 mmol/L (98-107); Glomerular Filtration Rate 97.6 mL/min (90-130); Glucose 69 mg/dL (65-115); Osmolality Calculated 290 mOsm/kg (285-295); Potassium 3.9 mmol/L (3.5-5.1); Sodium 141 mmol/L (136-145); Uric Acid 3.8 mg/dL (2.4-5.7)
[2021-01-08 18:08] VITALS: BP 102/80; PULSE 62; RESP 18; O2SAT 96
== END 2021-01-08 18:41 | disposition left against medical advice (07) ==
PROVIDERS: Emergency Provider Emergency Medicine
DX: M79.671 Pain in right foot (principal); Z53.21 Procedure and treatment not carried out due to patient leaving prior to being seen by health care provider
CPT/HCPCS: 73630; 80048; 84550; 85025; 85651; 86140; 99282

== ENCOUNTER → 2021-11-22 10:14 | Outpatient (BNVA) | payer MEDICAID, SELFPAY | PROVIDERS: Visit Provider Family Medicine Adult Medicine | DX: Z20.822 Contact with and (suspected) exposure to COVID-19 (principal); J02.9 Acute pharyngitis, unspecified; B34.9 Viral infection, unspecified | CPT/HCPCS: 87426; 87880 ==

== ENCOUNTER 2022-11-26 09:45 | Emergency (ER) | payer MEDICAID, SELFPAY ==
[2022-11-26 09:54] VITALS: BP 138/88; PULSE 69; RESP 18; TEMP 36.9; O2SAT 100
--- NOTE | 2022-11-26 10:28 | CTR_ITS ---
PROCEDURE INFORMATION: Exam: CT Abdomen And Pelvis With Contrast Exam date and time: 11/26/2022 10:53 AM Age: 32 years old Clinical indication: Abdominal pain; Prior surgery; Surgery date: 6+ months; Surgery type: Gb partial hysto appy; Additional info: Abd pain, HX of renal lesions TECHNIQUE: Imaging protocol: Computed tomography of the abdomen and pelvis with contrast. Radiation optimization: All CT scans at this facility use at least one of these dose optimization techniques: automated exposure control; mA and/or kV adjustment per patient size (includes targeted exams where dose is matched to clinical indication); or iterative reconstruction. Contrast material: OMNI 350; Contrast volume: 100 ml; Contrast route: INTRAVENOUS (IV); REPORTING DATA: Count of CT and Cardiac NM exams in prior 12 months: This patient has received 0 known CTs and 0 known cardiac nuclear medicine studies in the 12 months prior to the current study. COMPARISON: CT kidney stone [id number] 09/25/2019 9:53 AM RADIATION DOSE METRICS: Total DLP (mGy-cm): 413.13 FINDINGS: Lungs: Lung bases are clear. Liver: The liver is normal. Gallbladder and bile ducts: There is no intrahepatic or extrahepatic bile duct dilation. The gallbladder is absent. Pancreas: The pancreas is unremarkable. Spleen: The spleen is unremarkable. Adrenal glands: The adrenal glands are unremarkable. Kidneys and ureters: There is a heterogeneously enhancing partially exophytic mass arising from the posteromedial interpolar renal cortex on the left measuring 3.3 x 2.1 x 2.9 cm (2.4 x 2.2 x 2.0 cm on 09/25/2019). There is no hydronephrosis or stones. The right kidney and ureter are unremarkable. Stomach and bowel: The stomach is decompressed, preventing meaningful evaluation of wall thickness. The small bowel is nondilated. The colon is unremarkable. Appendix: The appendix is not visible. Intraperitoneal space: There is no free air or significant intraperitoneal free fluid. Vasculature: The aorta is unremarkable. There is no aneurysm. The portal, splenic and superior mesenteric veins are patent. Lymph nodes: There is no lymphadenopathy in the retroperitoneum, mesentery, pelvis or inguinal regions. Urinary bladder: The urinary bladder is decompressed, preventing meaningful evaluation of wall thickness. Reproductive: There is no adnexal mass or large cyst. Uterine fundal contour is irregular consistent with reported partial hysterectomy. Bones/joints: Bones are unremarkable. Soft tissues: The abdominal wall is intact. CT/CT abdomen pelvis w con* [id number] IMPRESSION: 1. No acute findings. 2. Increased size of an enhancing left renal mass since 09/25/2019 consistent with a solid neoplasm. Possible renal cell carcinoma.
[2022-11-26] MEDS: sodium chloride 0.9% 1,000 ML 999 ML IV (10:40)
[2022-11-26 10:44] LABS: Add Urine Microscopic? NO; Charge for UA Resulting for Rev
--- NOTE | 2022-11-26 10:48 | W.ED.ABDPA2 ---
HPI - Abdominal Pain General: Chief Complaint: Abdominal Pain Stated Complaint: lower abd pain Time Seen by Provider: 11/26/22 10:03 History of Present Illness: Barney is a 32-year-old female that presents to the emergency department with complaints of left lower quadrant abdominal discomfort, vaginal pressure, and left breast swelling. Onset of symptoms 2 months ago. Patient states she does not have a primary care provider to see. Patient reports that the pain is sharp in nature. She is status post partial hysterectomy and has had an oophorectomy for torsion. This is been years ago. She denies any fever, chills, chest pain, shortness of breath, cough, congestion. Denies any nausea or vomiting Denies any constipation or diarrhea Denies dysuria symptoms Review of Systems General: Reports: 10 or more systems reviewed and unremarkable except in HPI and below PFSH ED PFSH: Medical History (Updated 11/26/22 @ 12:26 by MARLON Kwok) Acute viral disease Surgical History History of appendectomy History of hysterectomy Hx of cholecystectomy Social History Smoking and tobacco status: current every day smoker Alcohol intake: current Alcohol intake frequency: holidays/special occasions only Substance/Drug Use: never Physical Exam Const: COMMON NORMALS: no acute distress, patient oriented x3 and alert GENERAL APPEARANCE: cooperative ORIENTATION/CONSCIOUSNESS: Yes awake, Yes oriented to person, Yes oriented to place and Yes oriented to time HENMT: COMMON NORMALS: normocephalic and atraumatic HEAD & SCALP: normocephalic and atraumatic FACE & SINUS: normal facial exam MOUTH: Normal oral and palatal mucosa present THROAT: posterior oropharynx normal Eye: COMMON NORMALS: Equal, round and reactive pupils present, EOMs intact bilaterally, conjunctivae normal and no scleral icterus GENERAL EYE: appearance normal, both eyes and all related structures ALIGNMENT: Yes alignment normal PERIORBITAL: periorbital findings normal CONJUNCTIVA: Yes conjunctivae normal PUPIL: Yes Equal, round and reactive pupils present Neck/C-Spine: COMMON NORMALS: full ROM GENERAL: Yes normal visual inspection Lymph: LYMPHATIC: no lymphadenopathy noted Chest: COMMONS NORMALS: normal inspection of the chest Breast/axilla inspection: Yes no chest deformity, asymmetry, normal contours, no nodules, masses, tenderness Resp: COMMON NORMALS: normal respiratory effort, No retractions, No use of accessory muscles and clear to auscultation bilaterally EFFORT & INSPECTION: Yes able to speak in complete sentences and Yes symmetric chest movement AUSCULTATION: clear to auscultation bilaterally Cardio: COMMON NORMALS: regular rate, regular rhythm and Peripheral pulses 2+ throughout RATE: regular rate RHYTHM: regular rhythm PERIPHERAL PULSES: Peripheral pulses 2+ throughout GI: COMMON NORMALS: Normal to inspection, nondistended, normoactive bowel sounds present, Soft to palpation and No hepatosplenomegaly present INSPECTION: Yes normal to inspection AUSCULTATION: Yes normoactive bowel sounds PALPATION: Yes Soft to palpation, Yes Tenderness to palpation present (GI) Details: LLQ and Yes No hepatosplenomegaly present RECTAL EXAM: deferred Extremity: COMMON NORMALS: normal to inspection GENERAL: Yes normal exam except as noted Neuro: COMMON NORMALS: patient oriented x3 SENSORIUM/ORIENTATION: Yes alert, Yes oriented to person, Yes oriented to place and Yes oriented to time CRANIAL NERVES: Yes CN normal except as noted Psych: COMMON NORMALS: mental status grossly normal, Normal thought process present, cooperative, activity/motor behavior normal, denies homicidal ideation and denies suicidal ideation THOUGHT PROCESS: Normal thought process present Skin: COMMON NORMALS: no rashes or lesions noted, no wounds and turgor normal GENERAL SKIN EXAM: no rashes or lesions noted and turgor normal Course Vital Signs: Vital signs: Vital Signs Temperature 98.5 F 11/26/22 09:54 Pulse Rate 64 11/26/22 11:30 Respiratory Rate 18 11/26/22 09:54 Blood Pressure 97/64 11/26/22 11:30 Pulse Oximetry 97 11/26/22 11:30 Oxygen Delivery Me thod Room Air 11/26/22 09:54 MDM - Abdominal Pain Medical Decision Making Patient was evaluated in the emergency department for back pain, left lower quadrant pain. Patient has a differential diagnosis of constipation, UTI, pyelonephritis, renal colliculi, Patient underwent laboratory evaluation that included CBC, CMP, urinalysis all of which was unremarkable. I did obtain a CT of the abdomen and pelvis with contrast which revealed increased size of an enhancing left renal mass that is changed since 09/25/2019. Is consistent suggestive of possible renal Cell carcinoma. I updated patient on findings. Back in 2019 when this was originally seen she did follow-up with a urologist but it did not appear to involve any additional imaging. I talked with her about obtaining adequate follow-up. She has had most of her critical illnesses dealt with. We are going to obtain a retail support associate there. This happens to be Dr. bob Yu. Referral is being sent by [facility] and I am giving the patient contact information for Dr. Yu. She needs to call Sunday to make sure she has follow-up I treated her pain and her nausea here in the emergency department and will discharge her home with some pain management. All questions answered- Lab Data 11/26/22 10:40 11/26/22 10:40 Labs/Radiology: Radiology Impressions Abdomen/Pelvis CT 11/26/22 10:28 IMPRESSION: 1. No acute findings. 2. Increased size of an enhancing left renal mass since 09/25/2019 consistent with a solid neoplasm. Possible renal cell carcinoma. Laboratory Results WBC 5.72 10^3/uL (3.29-11.43) 11/26/22 10:40 RBC 4.94 10^6/uL (3.85-5.65) 11/26/22 10:40 Hgb 14.70 g/dL (11.27-16.99) 11/26/22 10:40 Hct 44.2 % (36-47) 11/26/22 10:40 MCV 89.5 fl (85-98) 11/26/22 10:40 MCH 29.8 pg (27-33) 11/26/22 10:40 MCHC 33.3 g/dL (30-55) 11/26/22 10:40 RDW 12.2 % (12.1-15.1) 11/26/22 10:40 Plt Count 159 10^3/cmm (157-399) 11/26/22 10:40 MPV 11.3 fL (7.4-10.4) H 11/26/22 10:40 Neut % (Auto) 67.8 % 11/26/22 10:40 Lymph % (Auto) 23.8 % 11/26/22 10:40 Evangeline % (Auto) 6.5 % 11/26/22 10:40 Eos % (Auto) 1.2 % 11/26/22 10:40 Baso % (Auto) 0.5 % 11/26/22 10:40 Neut # (Auto) 3.88 10^3/uL (1.8-7.7) 11/26/22 10:40 Lymph # (Auto) 1.4 10^3/uL (0.8-4.8) 11/26/22 10:40 Evangeline # (Auto) 0.4 10^3/uL (0.2-0.9) 11/26/22 10:40 Eos # (Auto) 0.1 10^3/uL (0.0-0.8) 11/26/22 10:40 Baso # (Auto) 0.0 10^3/uL (0.0-0.1) 11/26/22 10:40 Nucleated RBC % (auto) 0 % 11/26/22 10:40 Nucleated RBCs # 0.0 /100WBC 11/26/22 10:40 Sodium 139 mmol/L (136-145) 11/26/22 10:40 Potassium 3.9 mmol/L (3.5-5.1) 11/26/22 10:40 Chloride 104 mmol/L (98-107) 11/26/22 10:40 Carbon Dioxide 25 mmol/L (22-29) 11/26/22 10:40 Anion Gap 13.9 (5-19) 11/26/22 10:40 BUN 10 mg/dL (6-20) 11/26/22 10:40 Creatinine 0.7 mg/dL (0.5-0.9) 11/26/22 10:40 GFR Calculation 96.4 mL/min (90-130) 11/26/22 10:40 Glucose 83 mg/dL (65-115) 11/26/22 10:40 Calculated Osmolality 286 mOsm/kg (285-295) 11/26/22 10:40 Calcium 9.1 mg/dL (8.5-10.5) 11/26/22 10:40 Total Bilirubin 0.5 mg/dL (0.15-1.2) 11/26/22 10:40 AST 15 U/L (0-32) 11/26/22 10:40 ALT 8 U/L (0-33) 11/26/22 10:40 Alkaline Phosphatase 66 U/L (35-105) 11/26/22 10:40 Total Protein 7.6 g/dL (6.6-8.7) 11/26/22 10:40 Albumin 4.7 g/dL (3.5-5.2) 11/26/22 10:40 Globulin 2.9 g/dL (1.3-4.6) 11/26/22 10:40 Urine Color Yellow (Yellow) 11/26/22 10:15 Urine Appearance Clear (CLEAR) 11/26/22 10:15 Urine pH 6.5 (5-7) 11/26/22 10:15 Ur Specific [place] 1.010 (1.005-1.030) 11/26/22 10:15 Urine Protein Neg (Negative) 11/26/22 10:15 Urine Glucose (UA) Norm (Normal) 11/26/22 10:15 Urine Ketones Negative (Negative) 11/26/22 10:15 Urine Blood Neg (Negative) 11/26/22 10:15 Urine Nitrate Negative (Negative) 11/26/22 10:15 Urine Bilirubin Neg (Negative) 11/26/22 10:15 Urine Urobilinogen Norm mg/dL (Negative) 11/26/22 10:15 Ur Leukocyte Esterase Negative (Negative) 11/26/22 10:15 Discharge Plan Discharge Patient Disposition: Home Clinical Impression: Abdominal pain, Renal neoplasm Condition: Stable Prescriptions: New tramadol 50 mg tablet 50 mg PO BID PRN (Reason: pain) Qty: 14 0RF ondansetron 4 mg tablet,disintegrating 4 mg PO Q8H 5 Days Qty: 15 0RF No Action Marinol 5 mg Capsule 5 mg PO BID PRN (Reason: appetite) Rx Instructions: administer before lunch and evening meal/dinner Zofran 4 mg Tablet 4 mg PO Q6H PRN (Reason: Nausea) Discharge Orders: Discharge ED (Routine); Ordered 11/26/22 Ordered By: Trey Duran Discharge Diet: Advance as tolerated Discharge Activity: Resume usual activity Patient Instructions: Abdominal Pain (ED), Opioid Safety, Pain Management Coding Level of Care Code ED Online Marketing Analyst for Jd Alvarez
[2022-11-26] MEDS: iohexol 350 mg/mL 500 mL Btl (per mL) IV (10:58)
[2022-11-26 10:59] VITALS: BP 128/95; PULSE 65; O2SAT 97
[2022-11-26 10:59] LABS: Basophils % 0.5 %; Eosinophils # 0.1 10^3/uL (0.0-0.8); Eosinophils % 1.2 %; Hematocrit 44.2 % (36-47); Lymphocytes # 1.4 10^3/uL (0.8-4.8); Lymphocytes % 23.8 %; Mean Corpuscular HGB Conc 33.3 g/dL (30-55); Mean Corpuscular Hemoglobin 29.8 pg (27-33); Mean Corpuscular Volume 89.5 fl (85-98); Mean Platelet Volume 11.3 fL (7.4-10.4); Monocytes # 0.4 10^3/uL (0.2-0.9); Monocytes % 6.5 %; Neutrophils # 3.88 10^3/uL (1.8-7.7); Neutrophils % 67.8 %; Nucleated Red Blood Cells % 0 %; Platelet Count 159 10^3/cmm (157-399); Red Blood Count 4.94 10^6/uL (3.85-5.65); Red Cell Distribution Width 12.2 % (12.1-15.1); White Blood Count 5.72 10^3/uL (3.29-11.43)
--- NOTE | 2022-11-26 11:07 | PC.NURSE ---
PT INITIALLY STATED WHEN OFFERED ZOFRAN THAT SHE DECLINED BECAUSE OF AN ALLERGY, PT LATER REQUESTED ZOFRAN AND STATED I DINT KNOW IF I HAD A REACTION TO ZOFRAN OR ANTIBIOTICS PT REQUEST TO TAKE ZOFRAN, PHYSICIAN NOTIFIED AND APPROVED. PT REPORTS HER REACTION AT THE TIME WAS HIVES.
[2022-11-26 11:08] LABS: Alanine Aminotransferase 8 U/L (0-33); Albumin Level 4.7 g/dL (3.5-5.2); Alkaline Phosphatase 66 U/L (35-105); Anion Gap 13.9 (5-19); Aspartate Amino Transferase 15 U/L (0-32); Blood Urea Nitrogen 10 mg/dL (6-20); Calcium 9.1 mg/dL (8.5-10.5); Carbon Dioxide 25 mmol/L (22-29); Chloride 104 mmol/L (98-107); Globulin 2.9 g/dL (1.3-4.6); Glomerular Filtration Rate 96.4 mL/min (90-130); Glucose 83 mg/dL (65-115); Osmolality Calculated 286 mOsm/kg (285-295); Potassium 3.9 mmol/L (3.5-5.1); Sodium 139 mmol/L (136-145); Total Bilirubin 0.5 mg/dL (0.15-1.2); Total Protein 7.6 g/dL (6.6-8.7)
[2022-11-26 11:11] LABS: Bilirubin Urine Neg (Negative); Blood Urine Neg (Negative); Glucose Urine UA Norm (Normal); Ketones Urine Negative (Negative); Leukocyte Esterase Urine Negative (Negative); Nitrate Urine Negative (Negative); Protein Urine Neg (Negative); Urine Appearance Clear (CLEAR); Urine Color Yellow (Yellow); Urobilinogen Urine Norm (Negative); pH Urine 6.5 (5-7)
[2022-11-26] MEDS: ondansetron 2 mg/ML SDV 2 mL 4 MG IVP (11:13)
[2022-11-26 11:30] VITALS: BP 97/64; PULSE 64; O2SAT 97
[2022-11-26 12:30] VITALS: BP 121/61; PULSE 87; O2SAT 99
[2022-11-26] MEDS: ketorolac 30 mg/mL INJ IVP (12:30)
[2022-11-26 12:50] VITALS: BP 121/61; PULSE 71; O2SAT 99
--- NOTE | 2022-11-28 09:42 | DCPLANNER ---
environmental field office manager had message to speak with patient about getting established with a primary care physician. Patient declines at this time.
== END 2022-11-26 12:52 | disposition home or self-care (01) ==
PROVIDERS: Emergency Provider Nurse Practitioner
DX: R10.32 Left lower quadrant pain (principal); D49.512 Neoplasm of unspecified behavior of left kidney; F17.210 Nicotine dependence, cigarettes, uncomplicated
CPT/HCPCS: 74177; 80053; 81003; 85025; 96374; 96375; 99285; J1885; J2405; J7030; Q9967

== ENCOUNTER 2023-02-24 16:41 | Emergency (ER) | payer MEDICAID, SELFPAY ==
[2023-02-24 17:46] VITALS: BP 101/70; PULSE 87; RESP 18; TEMP 36.8; O2SAT 100; BMI 19.2
--- NOTE | 2023-02-24 20:43 | CTR_ITS ---
PROCEDURE INFORMATION: Exam: CT Abdomen And Pelvis With Contrast Exam date and time: 02/24/2023 9:22 PM Age: 32 years old Clinical indication: Abdominal pain; Prior surgery; Surgery date: 1-6 months; Surgery type: Partial resection of left kidney nov 2022. [facility]. Hysterectomy. Patient HX: C/O left flank pain. Diagnosed with renal cancer nov 2022. ; Additional info: Left flank pain-prior tumor resection same TECHNIQUE: Imaging protocol: Computed tomography of the abdomen and pelvis with contrast. Radiation optimization: All CT scans at this facility use at least one of these dose optimization techniques: automated exposure control; mA and/or kV adjustment per patient size (includes targeted exams where dose is matched to clinical indication); or iterative reconstruction. Contrast material: OMNI 350; Contrast volume: 100 ml; Contrast route: INTRAVENOUS (IV); REPORTING DATA: Count of CT and Cardiac NM exams in prior 12 months: This patient has received [address] and 0 known cardiac nuclear medicine studies in the 12 months prior to the current study. COMPARISON: CT abdomen pelvis w con* [id number] 11/26/2022 10:53 AM RADIATION DOSE METRICS: Total DLP (mGy-cm): 455.15 FINDINGS: Liver: Normal. No mass. Gallbladder and bile ducts: Cholecystectomy. Mild prominence of the bile ducts is consistent with reservoir effect. Pancreas: Normal. No ductal dilation. Spleen: Normal. No splenomegaly. Adrenal glands: Normal. No mass. Kidneys and ureters: Hypodense cortical defect in the medial left kidney, consistent with previous surgery. The previous left renal mass has been resected. The kidneys are otherwise unremarkable. No calculus or hydronephrosis. Stomach and bowel: Unremarkable. No obstruction. No mucosal thickening. Appendix: The appendix is not visualized. Intraperitoneal space: Unremarkable. No free air. No significant fluid collection. Vasculature: Unremarkable. No abdominal aortic aneurysm. Lymph nodes: Unremarkable. No enlarged lymph nodes. Urinary bladder: Unremarkable as visualized. Reproductive: The uterus is absent. The right ovary is not visualized and is most likely absent. 1.4 cm left ovarian follicle. Bones/joints: Unremarkable. No acute fracture. Soft tissues: Unremarkable. CT/CT abdomen pelvis w con* [id number] IMPRESSION: 1. No acute findings. 2. Resection of the previous left renal mass with a residual defect.
--- NOTE | 2023-02-24 20:45 | ED_ITS ---
HPI - Female Genitourinary 2 General: Chief complaint: Urogenital-Female Stated complaint: abd pain Time Seen by Provider: 02/24/23 20:28 Source: patient and family Mode of arrival: ambulatory Limitations: no limitations History of Present Illness: This patient comes to the emergency department because of persistent left flank pain. She states this pain began while she was in [place] and had to spend a lot of time walking in the mall of the [employer]. She attributed the pain to possibly being related to that increased level of physical activity. She denies any known falls twisting turning bending lifting etc. She states the pain was in her left flank and seem to radiate to her left groin similar to kidney stone pain that she is experienced in the past. Contributory to her current presentation is that she had a renal cell carcinoma resected in November of this year at [facility]. She is also concerned that these current pains may be related to that procedure. She has had no fever chills or other constitutional complaints. She does have decreased appetite over the past few days but she associates that with her increased pain levels as that is a common scenario for her to have decreased appetite and some vomiting with pain. She denies any weakness or numbness loss of bowel or bladder control history of IV drug use, current chemotherapy etc. She has had prior gallbladder removal as well as a right oophorectomy and hysterectomy. MD elicited complaint: flank pain Severity: moderate Female Urogenital Radiation: LLQ and L Flank Consistency: intermittent Relieving factors: none Associated symptoms: Reports abdominal pain and nausea; Deny headache(s) Patient : No Review of Systems 2 Const: Reports: change in appetite; Denies: fever(s), chills or body aches Eyes: Denies: change in vision ENMT: Denies: throat pain, uvular edema, odynophagia, nasal discharge or nasal congestion Card: Denies: chest pain or palpitations Resp: Denies: dyspnea, productive cough or non-productive cough GI: Reports: abdominal pain, nausea and vomiting; Denies: diarrhea : Reports: flank pain; Denies: dysuria, urinary frequency or hematuria Musc: Reports: back pain; Denies: neck pain, extremity pain or extremity swelling Skin/Breast: Denies: rash Neuro: Denies: headache(s), numbness in extremities or weakness in extremities PFSH ED 2 PFSH: Medical History (Updated 12/02/23 @ 22:31 by Kory Louie DO) Acute viral disease Surgical History History of hysterectomy History of appendectomy Hx of cholecystectomy Social History Smoking and tobacco/nicotine status: current every day tobacco/nicotine user Alcohol intake: current Alcohol intake frequency: holidays/special occasions only Substance/Drug Use: never Physical Exam 2 Narrative: EXAM NARRATIVE: She is alert makes good eye contact and is in no acute distress. She answers questions in a goal-directed fashion. Const: COMMON NORMALS: no acute distress, average body habitus, patient oriented x3 and alert GENERAL APPEARANCE: cooperative HENMT: COMMON NORMALS: normocephalic, atraumatic, Normal nasal mucous membranes and turbinates present and moist oral mucous membranes HEAD & SCALP: normocephalic and atraumatic NOSE: Normal nasal mucous membranes and turbinates present THROAT: no uvular edema Eye: COMMON NORMALS: Equal, round and reactive pupils present, EOMs intact bilaterally and no scleral icterus PUPIL: Yes Equal, round and reactive pupils present Neck/C-Spine: COMMON NORMALS: full ROM, no lymphadenopathy and supple Resp: COMMON NORMALS: normal respiratory effort, No use of accessory muscles and clear to auscultation bilaterally AUSCULTATION: clear to auscultation bilaterally Cardio: COMMON NORMALS: regular rate, regular rhythm, No murmurs present (Cardio) and Peripheral pulses 2+ throughout RATE: regular rate RHYTHM: r egular rhythm PERIPHERAL PULSES: Peripheral pulses 2+ throughout GI: COMMON NORMALS: Normal to inspection, nondistended, normoactive bowel sounds present, Soft to palpation and non-tender PALPATION: Yes Soft to palpation : BLADDER/KIDNEY EXAM: Yes CVA tenderness Back/Pelvis: COMMON NORMALS: thoracic and lumbar spine normal to inspection, thoraco-lumbar ROM normal and straight leg raise negative bilaterally GENERAL BACK: Yes CVA tenderness CVA tenderness: left, No mass, No erythema and No ecchymosis OTHER: Prior laparoscopic incisions well-healed and approximated. She has palpable tenderness over the soft tissues of the left lumbar thoracic region. She has exacerbation of her symptoms with rotation to the right versus the left. No midline tenderness or step-off noted. Extremity: COMMON NORMALS: normal to inspection, full ROM, capillary refill normal, no calf tenderness and no pedal edema Neuro: COMMON NORMALS: patient oriented x3, moves all extremities, no focal motor deficits, no sensory deficits noted and gait normal S ENSORIUM/ORIENTATION: Yes alert CRANIAL NERVES: Yes CN normal except as noted Psych: COMMON NORMALS: mental status grossly normal Skin: COMMON NORMALS: no rashes or lesions noted and turgor normal GENERAL SKIN EXAM: no rashes or lesions noted and turgor normal Course 2 Reevaluation(s): Reevaluation #1: The patient stated she was more comfortable. I reviewed her current findings with both she and her mother is present. No evidence at this time to suggest infection, renal calculus, postoperative mass or other acute intra-abdominal process. Time: 22:24 Vital Signs: Vital signs: Vital Signs Temperature 98.2 F 02/24/23 17:46 Pulse Rate 87 02/24/23 17:46 Respiratory Rate 16 02/24/23 21:14 Blood Pressure 101/70 02/24/23 17:46 Pulse Oximetry 100 02/24/23 17:46 Oxygen Delivery Me thod Room Air 02/24/23 17:46 MDM - Female Medical Decision Making Patient presented to emergency department because of left flank and left back pain. She related that she had a renal cell carcinoma resected using stereotactic robotic technique at [facility] in November of this year. She had a relatively unremarkable postoperative course but did develop postoperative infection requiring a second hospitalization. She states that she is also to have prior history of renal stones and pain somewhat mimicked that pain. She denies any fevers chills known trauma etc. She did relate that she had walked a considerable amount approximately 10 to 14 days ago in [place] when she was at the [employer] and walked what she estimated is upwards of 8 miles daily for some time. Wonders if that can been a contributing factor. She did not have any history that suggested likely infection, or neurologic symptoms such as suggest concerning back issue at this time. Her clinical examination revealed some evidence of soft tissue tenderness and with reproduction with rotation of her trunk. She had no evidence that was suggested neurologic involvement to include a negative straight raising, no dermatomal anesthesia or numbness, no history of loss of bowel or bladder control or other concerning symptoms. Imaging as well as laboratories were obtained to ensure that no evidence of occult infection, postoperative abscess, renal stone etc. Those studies were reassuring with normal postoperative changes noted on CT without any evidence of stone or other intra-abdominal process. Her laboratories were reassuring as wellWith preserved renal function. Urinalysis was remarkable for squamous cells and amorphous sediment with trace bacteria and trace leukocyte Estrace. Given her lack of fever, lack of leukocytosis or other concerning findings and given her history of significant history reactions to various antibiotics and her clinical picture is felt more prudent to culture her urine rather than empirically treat her for what would be construed as very minimal if any evidence of infection at this time. This was all discussed with patient and mother in detail. There is likely a musculoskeletal component given her history and her clinical examination and findings this evening and we will give her a short course of muscle relaxants for symptom control. We also discussed return precautions in detail. Medical Records I reviewed the patient's medical records. Prior history of left renal mass noted in 2018 and is subsequently in 2020. Lab Data I reviewed the patient's lab results. 02/24/23 21:04 02/24/23 21:04 Radiology Impressions Abdomen/Pelvis CT 02/24/23 20:43 IMPRESSION: 1. No acute findings. 2. Resection of the previous left renal mass with a residual defect. Laboratory Results WBC 6.20 10^3/uL (3.29-11.43) 02/24/23 21:04 RBC 4.82 10^6/uL (3.85-5.65) 02/24/23 21:04 Hgb 14.10 g/dL (11.27-16.99) 02/24/23 21: Hct 43.4 % (36-47) 02/24/23 21: MCV 90.0 fl (85-98) 02/24/23 21: MCH 29.3 pg (27-33) 02/24/23 21: MCHC 32.5 g/dL (30-55) 02/24/23 21: RDW 12.1 % (12.1-15.1) 02/24/23 21:04 Plt Count 199 10^3/cmm (157-399) 02/24/23 21: MPV 11.2 fL (7.4-10.4) H 02/24/23 21:04 Neut % (Auto) 56.0 % 02/24/23 21:04 Lymph % (Auto) 34.0 % 02/24/23 21:04 [place] % (Auto) 7.6 % 02/24/23 21:04 Eos % (Auto) 1.6 % 02/24/23 21:04 Baso % (Auto) 0.6 % 02/24/23 21:04 Neut # (Auto) 3.47 10^3/uL (1.8-7.7) 02/24/23 21:04 Lymph # (Auto) 2.1 10^3/uL (0.8-4.8) 02/24/23 21:04 [place] # (Auto) 0.5 10^3/uL (0.2-0.9) 02/24/23 21:04 Eos # (Auto) 0.1 10^3/uL (0.0-0.8) 02/24/23 21:04 Baso # (Auto) 0.0 10^3/uL (0.0-0.1) 02/24/23 21:04 Nucleated RBC % (auto) 0 % 02/24/23 21:04 Nucleated RBCs # 0.0 /100WBC 02/24/23 21:04 Sodium 139 mmol/L (136-145) 02/24/23 21:04 Potassium 3.5 mmol/L (3.5-5.1) 02/24/23 21:04 Chloride 102 mmol/L (98-107) 02/24/23 21:04 Carbon Dioxide 24 mmol/L (22-29) 02/24/23 21:04 Anion Gap 16.5 (5-19) 02/24/23 21:04 BUN 7 mg/dL (6-20) 02/24/23 21:04 Creatinine 0.7 mg/dL (0.5-0.9) 02/24/23 21:04 GFR Calculation 96.4 mL/min (90-130) 02/24/23 21:04 Glucose 102 mg/dL (65-115) 02/24/23 21:04 Calculated Osmolality 286 mOsm/kg (285-295) 02/24/23 21:04 Calcium 9.4 mg/dL (8.5-10.5) 02/24/23 21:04 Total Bilirubin 0.3 mg/dL (0.15-1.2) 02/24/23 21:04 AST 22 U/L (0-32) 02/24/23 21:04 ALT 11 U/L (0-33) 02/24/23 21:04 Alkaline Phosphatase 77 U/L (35-105) 02/24/23 21:04 Total Protein 8.0 g/dL (6.6-8.7) 02/24/23 21:04 Albumin 4.7 g/dL (3.5-5.2) 02/24/23 21:04 Globulin 3.3 g/dL (1.3-4.6) 02/24/23 21:04 Lipase 20 U/L (13-60) 02/24/23 21:04 Urine Color Yellow (Yellow) 02/24/23 21:04 Urine Appearance Cloudy (CLEAR) A 02/24/23 21:04 Urine pH 7 (5-7) 02/24/23 21:04 Ur Specific [place] 1.010 (1.005-1.030) 02/24/23 21:04 Urine Protein Neg (Negative) 02/24/23 21:04 Urine Glucose (UA) Norm (Normal) 02/24/23 21:04 Urine Ketones 1+ (Negative) H 02/24/23 21:04 Urine Blood Neg (Negative) 02/24/23 21:04 Urine Nitrate Negative (Negative) 02/24/23 21:04 Urine Bilirubin Neg (Negative) 02/24/23 21:04 Urine Urobilinogen Neg mg/dL (Negative) 02/24/23 21:04 Ur Leukocyte Esterase Trace (Negative) H 02/24/23 21:04 Urine RBC None /hpf (0-2) 02/24/23 21:04 Urine WBC Rare /hpf (0-5) 02/24/23 21:04 Ur Squamous Epith Cells 10-15 /hpf (0-5) H 02/24/23 21:04 Amorphous Sediment 3+ /hpf 02/24/23 21:04 Urine Bacteria Trace /hpf (NONE) 02/24/23 21:04 All radiology interpretation(s) finalized by discharge Discharge Plan Discharge Patient Disposition: Home Clinical Impression: Back pain Qualifiers: Chronicity: unspecified Back pain laterality: left Sciatica presence: without sciatica Condition: Stable Prescriptions: New methocarbamol 750 mg tablet 750 mg PO Q8H Qty: 10 0RF No Action Marinol 5 mg Capsule 5 mg PO BID PRN (Reason: appetite) Rx Instructions: administer before lunch and evening meal/dinner Zofran 4 mg Tablet 4 mg PO Q6H PRN (Reason: Nausea) tramadol 50 mg tablet 50 mg PO BID PRN (Reason: pain) Qty: 14 0RF Discharge Orders: Discharge ED (Routine); Ordered 02/24/23 Ordered By: Kory Louie Discharge Diet: Usual diet Discharge Activity: Increase activity as tolerated Patient Instructions: Opioid Safety, Pain Management Activity Restrictions/Additional Instructions: As we discussed while you are in the emergency department your evaluation CV did not discover any serious cause of your pain. You did not have any evidence of infection or other concerning findings in the area of your previous surgery. This thought that likely this is a musculoskeletal pain due to your increased activity recently but certainly if your symptoms change or worsen or new symptoms develop you should return to this or the nearest emergency department for reevaluation. We have provided a prescription for some medication to help relax your muscles and provide symptomatic relief. We have also cultured your urine sample to ensure that there is no evidence of infection. Coding Level of Care Code ED Replenishment Merchandising Associate for Jd Alvarez
[2023-02-24 21:14] VITALS: RESP 16
[2023-02-24 21:14] LABS: Basophils % 0.6 %; Eosinophils # 0.1 10^3/uL (0.0-0.8); Eosinophils % 1.6 %; Hematocrit 43.4 % (36-47); Lymphocytes # 2.1 10^3/uL (0.8-4.8); Mean Corpuscular HGB Conc 32.5 g/dL (30-55); Mean Corpuscular Hemoglobin 29.3 pg (27-33); Mean Platelet Volume 11.2 fL (7.4-10.4); Monocytes # 0.5 10^3/uL (0.2-0.9); Monocytes % 7.6 %; Neutrophils # 3.47 10^3/uL (1.8-7.7); Nucleated Red Blood Cells % 0 %; Platelet Count 199 10^3/cmm (157-399); Red Blood Count 4.82 10^6/uL (3.85-5.65); Red Cell Distribution Width 12.1 % (12.1-15.1)
[2023-02-24] MEDS: morphine 4 mg/mL SDV 1 mL IVP (21:14)
[2023-02-24] MEDS: sodium chloride 0.9% 1,000 ML 999 ML IV (21:16)
[2023-02-24 21:30] LABS: Alanine Aminotransferase 11 U/L (0-33); Albumin Level 4.7 g/dL (3.5-5.2); Alkaline Phosphatase 77 U/L (35-105); Anion Gap 16.5 (5-19); Aspartate Amino Transferase 22 U/L (0-32); Blood Urea Nitrogen 7 mg/dL (6-20); Calcium 9.4 mg/dL (8.5-10.5); Carbon Dioxide 24 mmol/L (22-29); Chloride 102 mmol/L (98-107); Globulin 3.3 g/dL (1.3-4.6); Glomerular Filtration Rate 96.4 mL/min (90-130); Glucose 102 mg/dL (65-115); Lipase 20 U/L (13-60); Osmolality Calculated 286 mOsm/kg (285-295); Potassium 3.5 mmol/L (3.5-5.1); Sodium 139 mmol/L (136-145); Total Bilirubin 0.3 mg/dL (0.15-1.2)
[2023-02-24 21:55] LABS: Add Urine Microscopic? YES; Bilirubin Urine Neg (Negative); Blood Urine Neg (Negative); Glucose Urine UA Norm (Normal); Ketones Urine 1+ (Negative); Leukocyte Esterase Urine Trace (Negative); Nitrate Urine Negative (Negative); Protein Urine Neg (Negative); Urine Appearance Cloudy (CLEAR); Urine Color Yellow (Yellow); Urobilinogen Urine Neg (Negative); pH Urine 7 (5-7)
[2023-02-24 22:03] LABS: Bacteria Urine TRACE /hpf; WBC Urine RARE /hpf (0-5)
[2023-02-24 22:04] LABS: Amorphous Sediment Urine 3+ /hpf
[2023-02-24 22:19] VITALS: BP 119/80; PULSE 71; RESP 19; O2SAT 99
[2023-02-24] MEDS: methocarbamol 750 mg Tablet PO (22:39)
[2023-02-24 23:16] VITALS: BP 110/69; PULSE 64; RESP 17; O2SAT 100
[2023-02-24 23:20] VITALS: BP 110/69; PULSE 75; RESP 17; O2SAT 99
== END 2023-02-24 23:24 | disposition home or self-care (01) ==
PROVIDERS: Nurse Practitioner Family; Emergency Provider Emergency Medicine
DX: M54.9 Dorsalgia, unspecified (principal); Z72.0 Tobacco use
CPT/HCPCS: 74177; 80053; 81001; 83690; 85025; 87086; 96374; 99285; J2270; J7030; Q9967

== ENCOUNTER 2024-06-03 20:54 | Emergency (ER) | payer MEDICAID, SELFPAY ==
[2024-06-03 20:55] VITALS: BP 131/84; PULSE 60; RESP 18; TEMP 36.7; O2SAT 99; BMI 21.7
--- NOTE | 2024-06-03 21:23 | ECG_ITS ---
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 Measurements Intervals [place] Rate: 55 P: 62 CA: 159 QRS: 78 QRSD: 89 T: 55 QT: 380 QTc: 364 Interpretive Statements SINUS BRADYCARDIA Compared to ECG 07/24/2018 09:26:40 Sinus rhythm no longer present Electronically Signed On 06-06-2024 19:13:30 CDT by Sergio Chavis M.D. [email or web address] [id number]
--- NOTE | 2024-06-03 21:23 | XRR_ITS ---
PROCEDURE INFORMATION: Exam: XR Chest Exam date and time: 06/03/2024 9:48 PM Age: 34 years old Clinical indication: Pain; Chest pressure; Additional info: Chest pain TECHNIQUE: Imaging protocol: Radiologic exam of the chest. Views: 1 view. COMPARISON: CR XR chest 1V [id number] 07/24/2018 10:05 AM FINDINGS: Lungs: Unremarkable. No consolidation. Pleural spaces: Unremarkable. No pleural effusion. No pneumothorax. Heart/Mediastinum: Unremarkable. No cardiomegaly. Bones/joints: Unremarkable. XR/XR chest 1V portable [id number] IMPRESSION: No acute findings.
[2024-06-03 21:48] LABS: Basophils % 0.7 %; Eosinophils # 0.1 10^3/uL (0.0-0.8); Eosinophils % 1.1 %; Hematocrit 42.8 % (36-47); Lymphocytes # 1.6 10^3/uL (0.8-4.8); Lymphocytes % 28.6 %; Mean Corpuscular HGB Conc 32.9 g/dL (30-55); Mean Corpuscular Hemoglobin 29.1 pg (27-33); Mean Corpuscular Volume 88.4 fl (85-98); Mean Platelet Volume 10.2 fL (7.4-10.4); Monocytes # 0.4 10^3/uL (0.2-0.9); Monocytes % 7.8 %; Neutrophils % 61.6 %; Nucleated Red Blood Cells % 0 %; Platelet Count 228 10^3/cmm (157-399); Red Blood Count 4.84 10^6/uL (3.85-5.65); Red Cell Distribution Width 12.6 % (12.1-15.1); White Blood Count 5.67 10^3/uL (3.29-11.43)
--- NOTE | 2024-06-03 22:00 | W.ED.CHESTPA ---
HPI - Chest Pain General: Chief Complaint: Chest Pain Stated Complaint: High D-Dimer 2,267 Time Seen by Provider: 06/03/24 21:11 History of Present Illness: 34-year-old female with a history of renal cancer who recently had the flu and was seen by her funding specialist today. She had complained of some continued cough and some chest pain so he had ordered a D-dimer and the patient reports this is over 1999. She did not hear back till she was almost home so she came to the emergency room here. She said a few days ago she did have some mild pain in her left calf but no swelling. She says shortness of breath has been going on for few weeks. She is not tachycardic and she is not hypoxemic. Related Data Home Medications ?Medication ?Instructions ?Recorded ?Confirmed dronabinol 5 mg capsule (Marinol) 5 mg PO BID PRN appetite 11/26/22 11/26/22 ondansetron HCl 4 mg tablet 4 mg PO Q6H PRN Nausea 11/26/22 11/26/22 Previous Rx's ?Medication ?Instructions ?Recorded tramadol 50 mg tablet 50 mg PO BID PRN pain #14 tabs 11/26/22 methocarbamol 750 mg tablet 750 mg PO Q8H #10 tabs 02/24/23 Allergies Allergy/AdvReac Type Severity Reaction Status Date / Time cephalexin (From Keflex) Allergy Unknown Verified 06/03/24 21:09 metoclopramide (From Reglan) Allergy RASH Verified 06/03/24 21:09 nitrofurantoin (From Allergy RASH Verified 06/03/24 21:09 Macrobid) prochlorperazine (From Allergy RASH Verified 06/03/24 21:09 Compazine) Sulfa (Sulfonamide Allergy RASH Verified 06/03/24 21:09 Antibiotics) sulfamethoxazole (From Allergy Unknown Verified 06/03/24 21:09 Bactrim) trimethoprim (From Bactrim) Allergy Unknown Verified 06/03/24 21:09 ZOFRAN Allergy Unknown Uncoded 06/03/24 21:09 Review of Systems Narrative: Constitutional symptoms: Negative except as documented in HPI. Skin symptoms: Negative except as documented in HPI. Eye symptoms: Negative except as documented in HPI. ENMT symptoms: Negative except as documented in HPI. Respiratory symptoms: Negative except as documented in HPI. Cardiovascular symptoms: Negative except as documented in HPI. Gastrointestinal symptoms: Negative except as documented in HPI. Genitourinary symptoms: Negative except as documented in HPI. Musculoskeletal symptoms: Negative except as documented in HPI. Neurologic symptoms: Negative except as documented in HPI. Psychiatric symptoms: Negative except as documented in HPI. Endocrine symptoms: Negative except as documented in HPI. [facility] ED PFSH: Medical History (Updated 06/03/24 @ 23:26 by Maite Rincon MD) Acute viral disease Surgical History History of hysterectomy History of appendectomy Hx of cholecystectomy Social History Smoking and tobacco/nicotine status: current every day tobacco/nicotine user Alcohol intake: current Alcohol intake frequency: holidays/special occasions only Substance/Drug Use: never Physical Exam Narrative: EXAM NARRATIVE: General: Alert, no acute distress. Skin: Warm, dry. Head: Normocephalic, atraumatic. Neck: Supple, trachea midline. Eye: Extraocular movements are intact. Ears, nose, mouth and throat: mucosa moist. Cardiovascular: Regular, Normal peripheral perfusion. Respiratory: Lungs are clear to auscultation, respirations are non-labored, breath sounds are equal, Symmetrical chest wall expansion. Gastrointestinal: Soft, Nontender, Non distended Musculoskeletal: Normal ROM, no deformity. Neurological: Alert and oriented, No focal neurological deficit observed. Psychiatric: Cooperative, appropriate mood & affect. Course Vital Signs: Vital signs: Vital Signs Temperature 98.0 F 06/03/24 20:55 Pulse Rate 72 06/03/24 23:35 Respiratory Rate 18 06/03/24 23:35 Blood Pressure 101/64 06/03/24 23:35 Pulse Oximetry 95 06/03/24 23:35 Oxygen Delivery Me thod Room Air 06/03/24 20:55 MDM - Chest Pain Medical Decision Making Differential diagnosis for patient with shortness of breath and chest pain includes but is not limited to and based on the above HPI, review of systems and physical exam: Pneumonia. Bronchitis. Asthma or COPD with acute exacerbation. Acute coronary syndrome / [place]. Pulmonary embolism. Anxiety. Congestive heart failure. Viral infections including influenza and Covid-19. Atrial fibrillation. Anxiety. Pleural effusion. Pneumothorax. Orders placed to evaluate differential diagnosis based on the above differential, HPI and physical exam EKG: Time 2058. Rate 55. Sinus bradycardia, No ST-T changes, no ectopy, normal NC & QRS intervals, This was reviewed and interpreted by myself the ER physician at 2104. Chest x-ray: No acute process. No infiltrate. No pneumothorax. This was reviewed and interpreted by myself the emergency room physician. I also reviewed the radiology report. Lab Review: Laboratory results were reviewed and interpreted by myself the emergency room physician. No leukocytosis. No anemia. No renal failure. D-dimer slightly elevated at 1.2. CTA of the chest: No pulmonary emboli or other acute processes. This was reviewed and interpreted by myself the emergency room physician. I also reviewed the radiology report. I reviewed the patient's medical record. Reexamination: Patient remained stable. No increased work of breathing. No altered mental status. No focal motor deficits. Assessment and plan: Noncardiac chest pain History of nephrectomy ?IV fluids given secondary to contrast and a unilateral kidney. - Discharged home - Discussed plan with patient. Answered any questions. - Evaluation and treatment of this problem were appropriate in the emergency setting. Lab Data 06/03/24 21:35 06/03/24 21:35 Radiology Impressions Chest X-Ray 06/03/24 21:23 IMPRESSION: No acute findings. Chest CTA 06/03/24 22:09 IMPRESSION: No acute findings. Laboratory Results WBC 5.67 10^3/uL (3.29-11.43) 06/03/24 21:35 RBC 4.84 10^6/uL (3.85-5.65) 06/03/24 21:35 Hgb 14.10 g/dL (11.27-16.99) 06/03/24 21:35 Hct 42.8 % (36-47) 06/03/24 21:35 MCV 88.4 fl (85-98) 06/03/24 21:35 MCH 29.1 pg (27-33) 06/03/24 21:35 MCHC 32.9 g/dL (30-55) 06/03/24 21:35 RDW 12.6 % (12.1-15.1) 06/03/24 21:35 Plt Count 228 10^3/cmm (157-399) 06/03/24 21:35 MPV 10.2 fL (7.4-10.4) 06/03/24 21:35 Neut % (Auto) 61.6 % 06/03/24 21:35 Lymph % (Auto) 28.6 % 06/03/24 21:35 [place] % (Auto) 7.8 % 06/03/24 21:35 Eos % (Auto) 1.1 % 06/03/24 21:35 Baso % (Auto) 0.7 % 06/03/24 21: Neut # (Auto) 3.50 10^3/uL (1.8-7.7) 06/03/24 21:35 Lymph # (Auto) 1.6 10^3/uL (0.8-4.8) 06/03/24 21:35 [place] # (Auto) 0.4 10^3/uL (0.2-0.9) 06/03/24 21:35 Eos # (Auto) 0.1 10^3/uL (0.0-0.8) 06/03/24 21: Baso # (Auto) 0.0 10^3/uL (0.0-0.1) 06/03/24 21: Nucleated RBC % (auto) 0 % 06/03/24 21: Nucleated RBCs # 0.0 /100WBC 06/03/24 21: D-Dimer 1.20 ug/mLFEU (0-0.59) H 06/03/24 21:35 Sodium 139 mmol/L (136-145) 06/03/24 21:35 Potassium 3.7 mmol/L (3.5-5.1) 06/03/24 21:35 Chloride 104 mmol/L (98-107) 06/03/24 21:35 Carbon Dioxide 24 mmol/L (22-29) 06/03/24 21:35 Anion Gap 14.7 (5-19) 06/03/24 21:35 BUN 11 mg/dL (6-20) 06/03/24 21:35 Creatinine 0.7 mg/dL (0.5-0.9) 06/03/24 21:35 GFR Calculation 95.2 mL/min (90-130) 06/03/24 21: Glucose 97 mg/dL (65-115) 06/03/24 21: Calculated Osmolality 287 mOsm/kg (285-295) 06/03/24 21:35 Calcium 9.5 mg/dL (8.5-10.5) 06/03/24 21:35 Total Bilirubin 0.4 mg/dL (0.15-1.2) 06/03/24 21:35 AST 19 U/L (0-32) 06/03/24 21:35 ALT 9 U/L (0-33) 06/03/24 21:35 Alkaline Phosphatase 76 U/L (35-105) 06/03/24 21:35 Total Protein 8.3 g/dL (6.6-8.7) 06/03/24 21:35 Albumin 4.7 g/dL (3.5-5.2) 06/03/24 21:35 Globulin 3.6 g/dL (1.3-4.6) 06/03/24 21:35 All radiology interpretation(s) finalized by discharge Discharge Plan Discharge Patient Disposition: Home Clinical Impression: Non-cardiac chest pain, Hx of unilateral nephrectomy Condition: Stable Prescriptions: No Action Marinol 5 mg Capsule 5 mg PO BID PRN (Reason: appetite) Rx Instructions: administer before lunch and evening meal/dinner Zofran 4 mg Tablet 4 mg PO Q6H PRN (Reason: Nausea) tramadol 50 mg tablet 50 mg PO BID PRN (Reason: pain) Qty: 14 0RF methocarbamol 750 mg tablet 750 mg PO Q8H Qty: 10 0RF Discharge Orders: Discharge ED (Routine); Ordered 06/03/24 Ordered By: Maite Rincon Discharge Diet: As Directed Discharge Activity: Increase activity as tolerated Patient Instructions: Noncardiac Chest Pain (ED), Opioid Safety, Pain Management Activity Restrictions/Additional Instructions: Thank you for choosing [facility] for your healthcare needs today. Please realize this is an emergency room and that we are providing you with a medical screening exam and this may not be complete and all inclusive of all the testing and or work up that you may need to determine your ailment or severity of your illness. You have been screened and evaluated and felt safe for discharge. Health conditions do change or evolve sometimes and as such it is important that you follow up with your Primary Doctor to be re checked, 3-5 days is a general good time frame for follow up. You are always welcome to return to the ED for re assessment if your symptoms are worsening or you have new concerns Print Language: [place] Coding Level of Care Code ED Community Relations Manager for Jd Alvarez
[2024-06-03 22:06] LABS: Alanine Aminotransferase 9 U/L (0-33); Albumin Level 4.7 g/dL (3.5-5.2); Alkaline Phosphatase 76 U/L (35-105); Blood Urea Nitrogen 11 mg/dL (6-20); Calcium 9.5 mg/dL (8.5-10.5); Carbon Dioxide 24 mmol/L (22-29); Chloride 104 mmol/L (98-107); Creatinine Clr Calc Pharmacy 117.5678; Globulin 3.6 g/dL (1.3-4.6); Glomerular Filtration Rate 95.2 mL/min (90-130); Glucose 97 mg/dL (65-115); Osmolality Calculated 287 mOsm/kg (285-295); Sodium 139 mmol/L (136-145); Total Bilirubin 0.4 mg/dL (0.15-1.2); Total Protein 8.3 g/dL (6.6-8.7)
--- NOTE | 2024-06-03 22:09 | CTR_ITS ---
PROCEDURE INFORMATION: Exam: CTA Chest With Contrast Exam date and time: 06/03/2024 10:32 PM Age: 34 years old Clinical indication: Abnormal findings; Other: Elevated d dimer; Additional info: Hypoxemia, tachycardia TECHNIQUE: Imaging protocol: Computed tomographic angiography of the chest with contrast. Exam focused on the arteries. 3D rendering (Not supervised by radiologist): MIP and/or 3D reconstructed images were created by the technologist. Radiation optimization: All CT scans at this facility use at least one of these dose optimization techniques: automated exposure control; mA and/or kV adjustment per patient size (includes targeted exams where dose is matched to clinical indication); or iterative reconstruction. Contrast material: OMNI 350; Contrast volume: 70 ml; Contrast route: INTRAVENOUS (IV); COMPARISON: CT angio chest PE protcl [id number] 07/22/2018 4:53 AM RADIATION DOSE METRICS: Total DLP (mGy-cm): 211.96 FINDINGS: Pulmonary arteries: Normal. No pulmonary emboli. Aorta: Unremarkable. No aortic aneurysm. No aortic dissection. Lungs: Unremarkable. No consolidation. No masses. Pleural spaces: Unremarkable. No pneumothorax. No pleural effusion. Heart: Unremarkable. No cardiomegaly. No pericardial effusion. Lymph nodes: Unremarkable. No enlarged lymph nodes. Gallbladder and biliary ducts: Status post cholecystectomy. Kidneys: Punctate nonobstructing left renal calculus. Bones/joints: Unremarkable. No acute fracture. Soft tissues: Unremarkable. CT/CT angio chest PE protcl [id number] IMPRESSION: No acute findings.
[2024-06-03 22:21] LABS: Anion Gap 14.7 (5-19); Aspartate Amino Transferase 19 U/L (0-32); Potassium 3.7 mmol/L (3.5-5.1)
[2024-06-03] MEDS: iohexol 350 mg/mL 500 mL Btl (per mL) IV (22:38)
[2024-06-03] MEDS: sodium chloride 0.9% 1,000 ML 999 ML IV (23:17)
[2024-06-03 23:35] VITALS: BP 101/64; PULSE 72; RESP 18; O2SAT 95
== END 2024-06-03 23:45 | disposition home or self-care (01) ==
PROVIDERS: Emergency Medicine; Emergency Provider Emergency Medicine
DX: R07.89 Other chest pain (principal); Z90.5 Acquired absence of kidney; Z72.0 Tobacco use
CPT/HCPCS: 71045; 71275; 80053; 85025; 85378; 93005; 99285; J7030

== ENCOUNTER → 2024-07-08 14:47 | Outpatient (BNVA) | payer MEDICAID, SELFPAY | PROVIDERS: Visit Provider Registered Nurse Neonatal Intensive Care | DX: N39.0 Urinary tract infection, site not specified (principal) | CPT/HCPCS: 81000; 87086 ==

== ENCOUNTER 2024-10-06 03:30 | Emergency (ER) | payer MEDICAID, SELFPAY ==
--- OUTSIDE RECORDS SUMMARY | 2003-03-25 19:00 | XMS_ITS | Continuity of Care Document ---
Author Name [facility] Address [address] [place] [address] Organization [facility] Care Team Providers Care Photographs Curator Name Role Phone [facility] Unavailable Unavailable Problems Problem Status Onset Date Problem Type Date of Resolution Comments Source Abdominal pain (finding) Active Condition Other instability, right ankle Diagnosis Contracture, right ankle Diagnosis Pain in right ankle Diagnosis Infection following a procedure, initial encounter Diagnosis Other acute osteomyelitis, right ankle and foot Diagnosis Methicillin susceptible Staphylococcus aureus infection as the cause of diseases classified elsewhere Diagnosis Other chronic pain Diagnosis Unspecified external cause status Diagnosis Unspecified place or not applicable Diagnosis Weakness Diagnosis Displacement of infusion catheter, initial encounter Diagnosis Other medical devices associated with adverse incidents Diagnosis Unspecified place in unspecified non-institutional (private) residence as the place of occurrence of the external cause Diagnosis Other osteomyelitis, ankle and foot Diagnosis Allergy status to sulfonamides status Diagnosis Primary osteoarthritis, right ankle and foot Diagnosis Pruritus, unspecified Diagnosis 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) Diagnosis Acidosis (disorder) Diagnosis Complication associated with orthopedic device (disorder) Diagnosis Adjustment disorder (disorder) Diagnosis Hypokalemia (disorder) Diagnosis Tachyarrhythmia (disorder) Diagnosis Dehydration (disorder) Diagnosis Complication of implant (disorder) Diagnosis Place of occurrence of accident or poisoning (environment) Diagnosis History of - urinary stone (context-dependent category) Diagnosis Family history of mental disorder (context-dependent category) Diagnosis Pseudarthrosis after fusion or arthrodesis Active Diagnosis Nausea with vomiting, unspecified Active Diagnosis Methicillin susceptible Staphylococcus aureus infection, unspecified site Active Diagnosis Pain in right ankle and joints of right foot Active Diagnosis Allergies, Adverse Reactions, Alerts Substance Category Reaction Severity Reaction type Status Date Reported Comments Source Reglan Assertion throat swelled Drug allergy Active [facility] Compazine<eason p>1</sup> Assertion Severe Drug allergy Active swells throat shut [facility] sulfa drugs Assertion Swelling Drug allergy Active [facility] Darvocet A500 Assertion Allergy to substance Active [facility] ibuprofen Assertion hives Moderate Drug allergy Active [facility] Toradol Assertion kidney disease Moderate Drug allergy Active [facility] Compazine<eason p>1, 2</sup> Assertion throat swelled shut Severe Drug allergy Active Patient states she can safely take phenergan . swells throat shut [facility] ceFAZolin Assertion swellling lips Drug allergy Active [facility] Ancef Assertion Drug allergy Active [facility] iodine Assertion Drug allergy Active [facility] Percocet Assertion Allergy to substance Active [facility] promethazine Assertion Mild Drug allergy Active [facility] Vicodin Assertion Allergy to substance Active [facility] Encounters Location Location Details Encounter Type Encounter Number Reason For Visit Attending Provider ADM Date DC Date Status Source OTR OTR OUTPATIENT [id number] 1WK FU FROM INJECTION Janak Schweser Cancel 05.11.840. 1.305441. 3.566.26 POC POC NO TECHBILL [id number] [facility] 10-21 NURSE PHONE CALL 10-14 7 [facility] OTR OTR OUTPATIENT [id number] DOS 7.29 2-3 WK POP WOUND CHECK Janak Schweser Cancel 840. 1.290005. 3.5609.18 OTR OTR OUTPATIENT [id number] DOS 7.29 2-3 WK POP WOUND CHECK Janak Schweser Cancel ..840. 1.249752. 3.56. [facility] [id number] hardware failure Janak Schweser Cancel [facility] OTR OTR OUTPATIENT [id number] R ANKLE FU Janak Schweser Cancel 05.11.840. 1.258395. 3.566. [facility] [id number] painful hardware Janak Schweser Cancel [facility] OTR OTR OUTPATIENT [id number] CT FU R FOOT Janak Schweser Cancel 05.11.840. 1.571499. 3.566 [facility] [id number] painful hardware Janak Schweser Cancel [facility] OTR [facility] OUTPATIENT [id number] CT FU R FOOT Janak Schweser Cancel 2.16840. 1.156657. 3 OTR OTR OUTPATIENT [id number] X RAY 3MO FU R FOOT Janak Schweser Cancel 2.16840. 1.380984. 3 OTR OTR OUTPATIENT [id number] X RAY 3MO FU R FOOT Janak Schweser Cancel 2.16840. 1.592420. 3 OTR OTR OUTPATIENT [id number] 1WK FU R FOOT Janak Schweser Cancel 2.16840. 1.364471. 3 OTR OTR OUTPATIENT [id number] L ANKLE 1 WK POP Janak Schweser Cancel 2.16840. 1.507846. 3 OTR OTR OUTPATIENT [id number] X RAY 3MO FU R FOOT Janak Schweser Cancel 2.16840. 1.895528. 3 OTR OTR OUTPATIENT [id number] X RAY 3MO FU R FOOT Janak Schweser Cancel 2.16840. 1.035273. 3 OTR OTR OUTPATIENT [id number] X RAY 6WK FU R ANKLE/FOOT Janak Schweser Cancel 2.16840. 1.425067. 3. OTR OTR OUTPATIENT [id number] X RAY 6WK FU R ANKLE/FOOT Janak Schweser Cancel 2.16840. 1.447460. 3. OTR OTR OUTPATIENT [id number] X RAY 6WK FU R ANKLE/FOOT Janak Schweser Cancel 2.16840. 1.156144. 3 OTR OTR OUTPATIENT [id number] 3WK FU R ANKLE/FOOT Janak Schweser Cancel 2.16840. 1.369288. 36. MOO MOO OUTPATIENT [id number] HOSP D/C ANKLE INFECTION Que Lou Cancel [facility] OTR OTR OUTPATIENT [id number] WOUND CHECK Janak Schweser Cancel ..840. 1.755858. 3.5609.18 [facility] [id number] tunn picc Janak Schweser Cancel [facility] OTR OTR OUTPATIENT [id number] WOUND CHECK Janak Schweser Cancel .840. 1.922400. 3.566 OTR OTR OUTPATIENT [id number] 4WK F/U R ANKLE Janak Schweser Cancel ..840. 1.377276. 3.5609.18 OTR OTR OUTPATIENT [id number] 1WK F/U R ANKLE Janak Schweser Cancel ..840. 1.411456. 3.5609.18 OTR OTR OUTPATIENT [id number] 4WK F/U R ANKLE Janak Schweser Cancel ..840. 1.972253. 3.566 OTR OTR OUTPATIENT [id number] 1WK F/U R ANKLE Janak Schweser Cancel ..840. 1.993503. 3.566.26 Procedures Procedure Code Date Perfomer Comments Source Appendectomy [facility] Cholecystectomy [facility] Hysterectomy [facility] I&D, [facility] Orthopedic procedures, [facility]
[2024-10-06] VITALS (8 sets, daily range): BP systolic 108–121; BP diastolic 67–83; PULSE 57–70; RESP 17; TEMP 36.5; O2SAT 98–100; BMI 19.3
--- OUTSIDE RECORDS SUMMARY | 2024-10-06 03:38 | XMS_ITS | Encounter Summary ---
Author Organization [facility] Address [address] [place] [address] Care Team Providers Care Certified Coding Specialist Name Role Phone Aleksey Landa MD Primary Care Provider Encounter Details Date Type Department Care Team (Late st Contact Info) Description 10/31/2005 Outpatient Historical [facility] [address] [place] [address] Bar Painter MD [address] [address] Other Specified Pre-Operative Examination (Primary Dx) Social History Tobacco Use Types Packs/Day Years Used Date Smoking Tobacco: Never Assessed Comments Unknown Sex and Gender Information Value Date Recorded Sex Assigned at Not on file 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 Gender Identity Not on file Sexual Orientation Not on file documented as of this encounter Plan of Treatment Not on file documented as of this encounter Procedures Procedure Name Priority Date/Time Associated Diagnosis Comments URINALYSIS MICROSCOPY ONLY Routine 10/31/2005 5:06 PM CDT URINALYSIS W/REFLEX MICROSCOPIC Routine 10/31/2005 5:06 PM CDT CBC WITH DIFFERENTIAL Routine 10/31/2005 4:52 PM CDT HCG QUANTITATIVE, BLOOD Routine 10/31/2005 4:52 PM CDT documented in this encounter Results * (ABNORMAL) URINALYSIS MICROSCOPY ONLY (10/31/2005 5:06 PM CDT) WBC URINE 3-5(A) 0 - 2 INTERFACE SYSTEM RBC UA 3-5(A) 0 - 2 INTERFACE SYSTEM HYALINE CAST None Seen 0 - 2 INTERFA CE SYSTEM BACTERIA UA Small(A) None Seen INTERFAC E SYSTEM 10/31/2005 5:06 PM CDT Bar Painter MD URINE ORDERABLES Final Result Performing Organization Address [facility] de Phone Number INTERFACE SYSTEM Refer to clinic/hospital department * (ABNORMAL) URINALYSIS (10/31/2005 5:06 PM CDT) COLOR UA Yellow Straw INTERFACE SYSTEM CLARITY UA Clear Clear INTERFACE SYSTEM LEUKOCYTE ESTERASE UA NEGATIVE NEGATIVE INTERFACE SYSTEM NITRITE UA NEGATIVE NEGATIVE INTERFACE SYSTEM PH UA 6.5 5.0 - 9.0 INTERFACE SYSTEM PROTEIN UA Trace(A) NEGATIVE INTERFACE SYSTEM Comment: As of 04 positive protein results obtained on routine urinalysis will not be confirmed by sulfosalicylic acid (SSA) precipitation. Current methodology for protein detection is highly sensitive for detection of albumin; therefore, confirmation is not necessary. GLUCOSE UA NEGATIVE NEGATIVE INTERFACE SYSTEM KETONES UA NEGATIVE NEGATIVE INTERFACE SYSTEM UROBILINOGEN UA 0.2 0.2 INTE RFACE SYSTEM BILIRUBIN UA NEGATIVE NEGATIVE INTERFA CE SYSTEM BLOOD UA Large(A) NEGATIVE INTERFACE SYSTEM SPECIFIC GRAVITY UA 1.025 1.005 - 1.030 INTERFACE SYSTEM MICRO EXAM Yes(A) No INTERFACE SYSTEM 10/31/2005 5:06 PM CDT Bar Painter MD URINE ORDERABLES Final Result Performing Organization Address [facility] Phone Number INTERFACE SYSTEM Refer to clinic/hospital department * HCG QUANTITATIVE, BLOOD (10/31/2005 4:52 PM CDT) CHORIONIC GONADOTROPIN, TOTAL <2.0 0.0 - 10.0 mlU/ML INTERFACE SYSTEM Comment: As of 04 at 12:00 p.m. [facility] has changed the methodology for ThCG, and with this change the reference range has changed from 0-5.0 mIU/ml to 0-10.0 mIU/ml. ----- ----- Total HCG levels between 10 mIU/mL and 25 mIU/mL may be indicative of early but need to be correlated with other clinical findings. HCG ranges during normal , as reported by the golf caddie, are summarized as follows: Gestational Age Expected hCG Values (mIU/ml) 0.2-1 Weeks 5 - 50 1-2 Weeks 50 - 500 2-3 Weeks 100 - 5,000 3-4 Weeks 1,000 - 50,000 5-6 Weeks 10,000 - 100,000 6-8 Weeks 15,000 - 200,000 2-3 Months 10,000 - 100,000 10/31/2005 4:52 PM CDT us Bar Painter MD CHEMISTRY ORDERABLES Final Res ult INTERFACE SYSTEM Refer to clinic/hospital department * CBC WITH DIFFERENTIAL (10/31/2005 4:52 PM CDT) WBC 6.5 4.5 - 13.5 K/ul INTERFACE SYSTEM RBC 4.76 4.30 - 5.30 Mil/ul INTERFACE SYSTEM HEMOGLOBIN 13.4 12.0 - 16.0 g/dL INTERFACE SYSTEM HEMATOCRIT 39.9 36.0 - 46.0 % INTERFACE SYSTEM MCV 83.8 78.0 - 102.0 Fl INTERFACE SYSTEM MCH 28.2 26.0 - 32.0 pg INTERFACE SYSTEM MCHC 33.6 33.0 - 35.0 g/dL INTERFACE SYSTEM RDW 13.4 11.0 - 14.5 % INTERFACE SYSTEM PLATELETS 223 140 - 440 K/ul INTERFACE SYSTEM MPV 9.4 8.9 - 12.8 Fl INTERFACE SYSTEM NEUTROPHILS 62.8 42.2 - 75.2 % INTERFACE SYSTEM LYMPHOCYTES 27.9 24.0 - 44.0 % INTERFACE SYSTEM MONOCYTES 8.9 2.0 - 10.0 % INTERFACE SYSTEM EOSINOPHILS 0.2 0.0 - 7.0 % INTERFACE SYSTEM BASOPHILS 0.2 0.0 - 1.0 % INTERFACE SYSTEM NEUTROPHIL ABSOLUTE 4.1 2.0 - 8.0 K/uL INTERFACE SYSTEM LYMPHOCYTE ABSOLUTE 1.8 1.2 - 4.0 K/ul INTERFACE SYSTEM MONOCYTE ABSOLUTE 0.6 0.1 - 0.6 K/ul INTERFACE SYSTEM EOSINOPHIL ABSOLUTE 0.0 0.0 - 0.7 K/ul INTERFACE SYSTEM BASOPHILS ABSOLUTE 0.0 0.0 - 0.2 K/ul INTERFACE SYSTEM 10/31/2005 4:52 PM CDT us Bar Painter MD HEMATOLOGY ORDERABLES Final Re sult INTERFACE SYSTEM Refer to clinic/hospital department documented in this encounter Visit Diagnoses Diagnosis Other specified pre-operative examination- Primary documented in this encounter Care Teams Certified Coding Specialist Relationship Specialty Start Date End Date Aleksey Landa MD PCP - General Hematology and Oncology 10/20/15 documented as of this encounter
--- OUTSIDE RECORDS SUMMARY | 2024-10-06 03:38 | XMS_ITS | Encounter Summary ---
Author Organization [facility] Address [address] [place] [address] Care Team Providers Care Hvac Service Technician Name Role Phone Aleksey Landa MD Primary Care Provider [phone] Reason for Referral * Outpatient Services (Routine) - Closed Specialty Diagnoses / Procedures Referred By Quyen collins Referred To Contact Radiology Diagnoses Calculus of kidney Procedures XR ABDOMEN 1 VW Jose Alejandro Vargas MD NO ADDRESS ON FILE [facility] [address] [place] [address] Phone: tel: fax: Referral ID Status Reason Start Date Expiration Date Visits Requested Visits Authorized [id number] Closed Performing Department To Schedule (SGF) 09/25/2012 10/26/2013 1 1 Encounter Details Date Type Department Care Team (Late st Contact Info) Description 09/25/2012 Ancillary Orders [facility] Pre-Registration [place] CALL TO MAKE APPOINTMENT ONLY [address] [place] [address] Jose Alejandro Vargas MD NO ADDRESS ON FILE Calculus of kidney (Primary Dx) Social History Tobacco Use Types Packs/Day Years Used Date Smoking Tobacco: Never Alcohol Use Standard Drinks/Week Comments No 0 (1 standard drink = 0.6 oz pur e alcohol) Comments Unknown Sex and Gender Information Value Date Recorded Sex Assigned at Not on file 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 Exam: XR ABDOMEN 1 VW Date/Time of Exam: Dec 04, 2012 02:01:26 PM Reason For Exam: Calculus of kidney. Findings: Compared with 11/28/2012, interval removal of the right double-J ureteral stent and placement of nephrostomy tube. Large amount of colonic stool noted. Fetus noted in cephalic position. Right upper quadrant surgical clips noted. CEC/eaw - uploaded from [employer] - Narrative Procedure Note Chris Benitez MD - 12/04/2012 IMPRESSION IMPRESSION: See report below. Exam: XR ABDOMEN 1 VW Date/Time of Exam: Dec 04, 2012 02:01:26 PM Reason For Exam: Calculus of kidney. Findings: Compared with 11/28/2012, interval removal of the right double-J ureteral stent and placement of nephrostomy tube. Large amount of colonic stool noted. Fetus noted in cephalic position. Right upper quadrant surgical clips noted. CEC/eaw - uploaded from [employer] - us Jose Alejandro Vargas MD DIAGNOSTIC IMAGING ORD ERABLES Final Result documented in this encounter Visit Diagnoses Diagnosis Calculus of kidney- Primary Calculus of kidney documented in this encounter Care Teams Hvac Service Technician Relationship Specialty Start Date End Date Aleksey Landa MD PCP - General Hematology and Oncology 10/20/15 documented as of this encounter
--- OUTSIDE RECORDS SUMMARY | 2024-10-06 03:38 | XMS_ITS | Encounter Summary ---
Author Organization [facility] Address [address] [place] [address] Care Team Providers Care Talent Acquisition Associate Name Role Phone Aleksey Landa MD Primary Care Provider [phone] Encounter Details Date Type Department Care Team (Late st Contact Info) Description 11/01/2005 Outpatient Historical [facility] Operating Room [address] [place] [id number] Bar Painter MD [address] [address] Menstrual Disorder NEC (Primary Dx) Social History Tobacco Use Types Packs/Day Years Used Date Smoking Tobacco: Never Assessed Comments Unknown Sex and Gender Information Value Date Recorded Sex Assigned at Not on file 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
--- OUTSIDE RECORDS SUMMARY | 2024-10-06 03:38 | XMS_ITS | Encounter Summary ---
Author Organization [facility] Address [address] [place] [address] Care Team Providers Care Business Objects Report Developer Name Role Phone Aleksey Landa MD Primary Care Provider Encounter Details Date Type Department Care Team ([facility] st Contact Info) Description 08/22/2014 Nurse Triage Report [id number] ABSTRACTION Alina Pena, RN Social History Tobacco Use Types Packs/Day Years Used Date Smoking Tobacco: Never Alcohol Use Standard Drinks/Week Comments No 0 (1 standard drink = 0.6 oz pur e alcohol) Comments No Sex and Gender Information Value Date Recorded Sex Assigned at Not on file 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 Report feedback to Dr Harvey Bradshaw Associated Symptoms: body aches, chills, chest pain when breathing in, sore on face, arms, body look like raised red hole in center Onset: 48 hours Location: body Pain Assessment: 1 - 10 with 10 being the most severe pain 8 Treatment so far for current presenting problem: deferred History (Clinical Problems): Went to [facility] yesterday for the sores, was advised to go to infection disease for tx History (Oncology/Hematology Diagnosis): remainder of triage deferred due to emergent symptoms OB: Are you leaking any fluid vaginally? NA OB: Are you having any vaginal bleeding? (Indicate color and amount) NA OB: Is your baby moving normally? NA Medications: deferred Medications and start of each - oncology related: no Medication reactions: deferred <<<<<<<< TRIAGE NOTE >>>>>>>> <<<<<<<< TRIAGE/OUTCOME >>>>>>>> Guideline Title: Breathing Problems ; Breathing Problems Recommended Disposition: See Provider within 4 hours Original Inclination: Call Provider/See in 24 Override Disposition: See ED Immediately Intended Action: Seek care in ER Physician Contacted: No New or worsening breathing problems not responding to treatment or no treatment plan ? YES documented in this encounter Plan of Treatment Not on file documented as of this encounter Visit Diagnoses Not on filedocumented in this encounter Care Teams Business Objects Report Developer Relationship Specialty Start Date End Date Aleksey Landa MD PCP - General Hematology and Oncology 10/20/15 documented as of this encounter
--- OUTSIDE RECORDS SUMMARY | 2024-10-06 03:38 | XMS_ITS | Encounter Summary ---
Author Organization [facility] Address [address] [place] [address] Care Team Providers Care Sugar Refiner Name Role Phone Aleksey Landa MD Primary Care Provider Encounter Details Date Type Department Care Team (Late st Contact Info) Description 11/15/2005 Outpatient Historical [facility] [place] [address] [place] [address] Bar Painter MD [address] [facility] [address] [place] [address] Follow-Up Examination, Following Unspecified Surgery (Primary Dx) Social History Tobacco Use Types Packs/Day Years Used Date Smoking Tobacco: Never Assessed Comments Unknown Sex and Gender Information Value Date Recorded Sex Assigned at Not on file 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
--- OUTSIDE RECORDS SUMMARY | 2024-10-06 03:38 | XMS_ITS | Encounter Summary ---
Author Organization [facility] Address [address] [place] [address] Care Team Providers Care Behavior Therapist Name Role Phone Aleksey Landa MD Primary Care Provider Encounter Details Date Type Department Care Team ([facility] st Contact Info) Description 07/23/2014 Nurse Triage Report [id number] ABSTRACTION Brittaney Rodgers, RN Social History Tobacco Use Types Packs/Day Years Used Date Smoking Tobacco: Never Alcohol Use Standard Drinks/Week Comments No 0 (1 standard drink = 0.6 oz pur e alcohol) Comments No Sex and Gender Information Value Date Recorded Sex Assigned at Not on file 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 <<<<<<<< TRIAGE/OUTCOME >>>>>>>> Guideline Title: No Guideline - Advice Per Reference (Adult) Recommended Disposition: Call Provider Immediately Original Inclination: Call Provider/See in 24 Intended Action: Call Provider Immediately Physician Contacted: No CALL PROVIDER IMMEDIATELY ? YES documented in this encounter Plan of Treatment Not on file documented as of this encounter Visit Diagnoses Not on filedocumented in this encounter Care Teams Behavior Therapist Relationship Specialty Start Date End Date Aleksey Landa MD PCP - General Hematology and Oncology 10/20/15 documented as of this encounter
--- OUTSIDE RECORDS SUMMARY | 2024-10-06 03:38 | XMS_ITS | Encounter Summary ---
Author Organization [facility] Address [address] [place] [address] Care Team Providers Care Brake Drum Molder Name Role Phone Aleksey Landa MD Primary Care Provider [phone] Encounter Details Date Type Department Care Team (Late st Contact Info) Description 12/08/2005 Outpatient Historical [facility] Bar Painter MD [address] [address] Menstrual Disorder NEC (Primary Dx) Social History Tobacco Use Types Packs/Day Years Used Date Smoking Tobacco: Never Assessed Comments Unknown Sex and Gender Information Value Date Recorded Sex Assigned at Not on file 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 INR 1.1 INTERFACE SYSTEM Comment: Expected Values for INR: DVT/PE Goal INR 2.5; range 2.0 - 3.0 Valve Replacement Tissue Goal INR 2.5; range 2.0 - 3.0 Mechanical Goal INR 3.0; range 2.5 - 3.5 POST-DC Goal INR 2.5; range 2.0 - 3.0 or Goal 3.0; range 2.5 - 3.5 Atrial Fibrillation Goal INR 2.5; range 2.0 - 3.0 Ischemic Stroke Goal INR 2.5; range 2.0 - 3.0 For additional information see Guidelines for Anticoagulation available from the pharmacy [facility] PTT 29.0 21.5 - 34.4 Secs INTERFACE SYSTEM Comment: Therapeutic Range: Hi-level PE/DVT heparin protocol 90.1 -110 sec Lo-level PE/DVT heparin protocol 75.1 - 95 sec Cardiac Heparin Protocol 85.1 - 100 sec Neuro Heparin Protocol 70.1 - 85 sec As of 04/19/05 note change in APTT Normal Range. 12/08/2005 12:3 6 PM CDT us Bar Painter MD HEMATOLOGY ORDERABLES Final Re sult INTERFACE SYSTEM Refer to clinic/hospital department * (ABNORMAL) CBC WITH DIFFERENTIAL (12/08/2005 12:36 PM CDT) WBC 7.5 4.5 - 13.5 K/ul INTERFACE SYSTEM RBC 4.84 4.30 - 5.30 Mil/ul INTERFACE SYSTEM HEMOGLOBIN 13.5 12.0 - 16.0 g/dL INTERFACE SYSTEM HEMATOCRIT 42.5 36.0 - 46.0 % INTERFACE SYSTEM MCV 87.8 78.0 - 102.0 Fl INTERFACE SYSTEM MCH 27.9 26.0 - 32.0 pg INTERFACE SYSTEM MCHC 31.8(L) 33.0 - 35.0 g/dL INTERFACE SYSTEM RDW 13.3 11.0 - 14.5 % INTERFACE SYSTEM PLATELETS 294 140 - 440 K/ul INTERFACE SYSTEM MPV 9.9 8.9 - 12.8 Fl INTERFACE SYSTEM NEUTROPHILS 68.4 42.2 - 75.2 % INTERFACE SYSTEM LYMPHOCYTES 23.4(L) 24.0 - 44.0 % INTERFACE SYSTEM MONOCYTES 7.4 2.0 - 10.0 % INTERFACE SYSTEM EOSINOPHILS 0.5 0.0 - 7.0 % INTERFACE SYSTEM BASOPHILS 0.3 0.0 - 1.0 % INTERFACE SYSTEM NEUTROPHIL ABSOLUTE 5.1 2.0 - 8.0 K/uL INTERFACE SYSTEM LYMPHOCYTE ABSOLUTE 1.8 1.2 - 4.0 K/ul INTERFACE SYSTEM MONOCYTE ABSOLUTE 0.6 0.1 - 0.6 K/ul INTERFACE SYSTEM EOSINOPHIL ABSOLUTE 0.0 0.0 - 0.7 K/ul INTERFACE SYSTEM BASOPHILS ABSOLUTE 0.0 0.0 - 0.2 K/ul INTERFACE SYSTEM 12/08/2005 12:3 6 PM CDT us Bar Painter MD HEMATOLOGY ORDERABLES Final Re sult INTERFACE SYSTEM Refer to clinic/hospital department documented in this encounter Visit Diagnoses Diagnosis Other disorder of menstruation and other abnormal bleeding from female genital tract- Primary documented in this encounter Care Teams Brake Drum Molder Relationship Specialty Start Date End Date Aleksey Landa MD PCP - General Hematology and Oncology 10/20/15 documented as of this encounter
--- OUTSIDE RECORDS SUMMARY | 2024-10-06 03:38 | XMS_ITS | Encounter Summary ---
Author Organization [facility] Address [address] [place] [address] Care Team Providers Care Grid Operator Name Role Phone Aleksey Landa MD Primary Care Provider [phone] Encounter Details Date Type Department Care Team (Late st Contact Info) Description 12/09/2014 Ancillary Orders [facility] Pre-Registration [place] CALL TO MAKE APPOINTMENT ONLY [address] [place] [address] Jose Alejandro Vargas MD NO ADDRESS ON FILE Abdominal pain, unspecified site (Primary Dx); Calculus of kidney; Left flank pain; Hx of splenomegaly Social History Tobacco Use Types Packs/Day Years Used Date Smoking Tobacco: Never Alcohol Use Standard Drinks/Week Comments No 0 (1 standard drink = 0.6 oz pur e alcohol) Comments No Sex and Gender Information Value Date Recorded Sex Assigned at Not on file 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 Gender Identity Not on file Sexual Orientation Not on file Occupation Industry Job Start Date Job End Date Not on file Not on file Not on file Not on file documented as of this encounter Plan of Treatment Not on file documented as of this encounter Visit Diagnoses Diagnosis Abdominal pain, unspecified site- Primary Calculus of kidney Left flank pain Abdominal pain, unspecified site Hx of splenomegaly Personal history of diseases of blood and blood-forming organs documented in this encounter Care Teams Grid Operator Relationship Specialty Start Date End Date Aleksey Landa MD PCP - General Hematology and Oncology 10/20/15 documented as of this encounter
--- OUTSIDE RECORDS SUMMARY | 2024-10-06 03:38 | XMS_ITS | Encounter Summary ---
Author Organization [facility] Address [address] [place] [address] Care Team Providers Care Curator Natural History Museum Name Role Phone Aleksey Landa MD Primary Care Provider Encounter Details Date Type Department Care Team (Late st Contact Info) Description 12/31/2012 Ancillary Orders [facility] Pre-Registration [place] CALL TO MAKE APPOINTMENT ONLY [address] [place] [address] Jose Alejandro Vargas MD NO ADDRESS ON FILE Right flank pain (Primary Dx) Social History Tobacco Use Types Packs/Day Years Used Date Smoking Tobacco: Never Alcohol Use Standard Drinks/Week Comments No 0 (1 standard drink = 0.6 oz pur e alcohol) Comments Unknown Sex and Gender Information Value Date Recorded Sex Assigned at Not on file 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
--- OUTSIDE RECORDS SUMMARY | 2024-10-06 03:38 | XMS_ITS | Encounter Summary ---
Author Organization [facility] Address [address] [place] [address] Care Team Providers Care Communications And Signals Supervisor Name Role Phone Aleksey Landa MD Primary Care Provider + [phone] Reason for Referral * Outpatient Services (Routine) - Closed Specialty Diagnoses / Procedures Referred By Quyen collins Referred To Contact Radiology Diagnoses Renal calculus, right Procedures US GUIDE NEEDLE PLACEMENT Jose Alejandro Vargas MD NO ADDRESS ON FILE [facility] Ultrasound [address] [place] [address] Phone: tel: fax: Referral ID Status Reason Start Date Expiration Date Visits Re quested Visits Authorized [id number] Closed 12/09/2012 01/09/2014 1 1 Encounter Details Date Type Department Care Team (Latest Contact Info) Description 12/09/2012 Ancillary Orders [facility] Interventional Radiology [address] [place] [address] [place] [address] Jose Alejandro Vargas MD NO ADDRESS ON FILE Renal calculus, right (Primary Dx) Social History Tobacco Use Types Packs/Day Years Used Date Smoking Tobacco: Never Alcohol Use Standard Drinks/Week Comments No 0 (1 standard drink = 0.6 oz pur e alcohol) Comments Yes Sex and Gender Information Value Date Recorded Sex Assigned at Not on file 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 Gender Identity Not on file Sexual Orientation Not on file Occupation Industry Job Start Date Job End Date Not on file Not on file Not on file Not on file documented as of this encounter Plan of Treatment Not on file documented as of this encounter Results * US GUIDE NEEDLE PLACEMENT (12/09/2012 2:34 PM CDT) Anatomical Region Laterality Modality Ultrasound 12/09/2012 12:2 7 PM CDT Impressions 12/09/2012 6:42 PM CDT IMPRESSION: see report below Exam: US GUIDE NEEDLE PLACEMENT Date/Time of Exam: Dec 09, 2012 02:34:02 PM Reason for Exam: calculus of kidney Clinical Indication: 22 year-old female patient, 3rd trimester , with nephrolithiasis and right hydronephrosis, a nephrostomy fell out and request has been submitted for replacement of the right-sided nephrostomy. Procedures: 1. Supervision of moderate/conscious IV sedation with fentanyl and Benadryl. 2. Ultrasound-guided needle placement into a right kidney posterior calyx of the lower pole. 3. Ultrasound-guided access conversion and percutaneous nephrostomy placement. Procedures in Detail, Technique and Findings: The procedures, the indications, the alternatives, the potential benefits and the risks were discussed, and the patient signed the informed written consent. No fluoroscopy was used for these procedures, and therefore no radiation whatsoever. With the patient decubitus, right side up, ultrasound imaging was repeated to delineate the percutaneous trajectory to the right kidney collecting system. With the ultrasound guidance, using IV sedation, sterile technique and SQ lidocaine, a 17-gauge introducer needle was placed into a posterior calyx of the right kidney lower pole. An ultrasound image documents the needle placement and is part of medical record. Blood tinged urine was aspirated and a 035 J-introducer guidewire was placed. The needle was exchanged for a dilator, and the dilator was exchanged for another 10 Irish percutaneous nephrostomy. The introducer and guidewire were removed, and the nephrostomy distal loop was formed in the renal pelvis. Imaging confirms that, and the catheter was secured to the patient with suture. It was attached to a gravity bag for continued external drainage. There were no clinically significant procedure related complications, and the estimated blood loss is minimal. Impression: ultrasound guided replacement of the right-sided percutaneous nephrostomy (again, no fluoro/x-ray whatsoever) RAC/lkr - uploaded from [employer] - Narrative Procedure Note Nate Michelle MD - 12/09/2012 IMPRESSION IMPRESSION: see report below Exam: US GUIDE NEEDLE PLACEMENT Date/Time of Exam: Dec 09, 2012 02:34:02 PM Reason for Exam: calculus of kidney Clinical Indication: 22 year-old female patient, 3rd trimester , with nephrolithiasis and right hydronephrosis, a nephrostomy fell out and request has been submitted for replacement of the right-sided nephrostomy. Procedures: 1. Supervision of moderate/conscious IV sedation with fentanyl and Benadryl. 2. Ultrasound-guided needle placement into a right kidney posterior calyx of the lower pole. 3. Ultrasound-guided access conversion and percutaneous nephrostomy placement. Procedures in Detail, Technique and Findings: The procedures, the indications, the alternatives, the potential benefits and the risks were discussed, and the patient signed the informed written consent. No fluoroscopy was used for these procedures, and therefore no radiation whatsoever. With the patient decubitus, right side up, ultrasound imaging was repeated to delineate the percutaneous trajectory to the right kidney collecting system. With the ultrasound guidance, using IV sedation, sterile technique and SQ lidocaine, a 17-gauge introducer needle was placed into a posterior calyx of the right kidney lower pole. An ultrasound image documents the needle placement and is part of medical record. Blood tinged urine was aspirated and a 035 J-introducer guidewire was placed. The needle was exchanged for a dilator, and the dilator was exchanged for another 10 Irish percutaneous nephrostomy. The introducer and guidewire were removed, and the nephrostomy distal loop was formed in the renal pelvis. Imaging confirms that, and the catheter was secured to the patient with suture. It was attached to a gravity bag for continued external drainage. There were no clinically significant procedure related complications, and the estimated blood loss is minimal. Impression: ultrasound guided replacement of the right-sided percutaneous nephrostomy (again, no fluoro/x-ray whatsoever) RAC/lkr - uploaded from [employer] - us Jose Alejandro Vargas MD ORDERABLES Final Result documented in this encounter Visit Diagnoses Diagnosis Renal calculus, right- Primary Calculus of kidney Renal calculus, right Calculus of kidney documented in this encounter Care Teams Communications And Signals Supervisor Relationship Specialty Start Date End Date Aleksey Landa MD PCP - General Hematology and Oncology 10/20/15 documented as of this encounter
--- OUTSIDE RECORDS SUMMARY | 2024-10-06 03:38 | XMS_ITS | Clinical Summary ---
Author Organization [facility] Address [address] [place] [address] Care Team Providers Care Paper Machine Back Tender Name Role Phone Unavailable Primary Care Provider Unavailabl e Allergies Active Allergy Reactions Criticality Noted Date Comments Chlorhexidine Gluconate Hives High 11/08/2012 Fentanyl Itching Low 05/07/2014 Ketorolac Hives High 11/20/2014 Levofloxacin Unknown 10/19/2015 Meperidine Delirium Medium 04/29/2014 Metoclopramide Anaphylaxis High 01/12/2009 Nitrofurantoin Monohyd/M-Cryst Hives,Nausea and Vomiting High 10/23/2015 Prochlorperazine Anaphylaxis High 11/08/2012 Promethazine Itching Low 09/14/2014 Sulfamethoxazole-Trimetho prim Itching Low 04/25/2014 Vancomycin Other (See Comments) 10/19/2015 Kidney failure Medications dronabinol (MARINOL) 10 mg capsule Take 1 Capsule (10 mg) by mouth 2 times daily with meals. 15 Capsule 0 6 Active Additional Information Patient taking differently:10 mg OralTWO TIMES DAILY PRN, Reported on 03/11/2020 ergocalciferol, vitamin D2, (VITAMIN D ORAL) Take 1 Tablet by mouth 2 times daily. Active ergocalciferol, vitamin D2, (VITAMIN D ORAL) Take by mouth every 7 days. Active gabapentin (NEURONTIN) 600 mg tablet Take 600 mg by mouth 2 times daily as needed. Active HYDROcodone-acet aminophen (NORCO) 5-325 mg tabletIndication s:Right ankle pain, unspecified chronicity Take 1 Tablet by mouth every 4 hours as needed for Pain. Do not drive or operate equipment while using this medication Max Daily Amount: 6 Tablets 12 Tablet 0 Active ondansetron (ZOFRAN ODT) 4 mg Tablet, Rapid Dissolve Take 1 Tablet (4 mg) by mouth every 6 hours as needed for Nausea/Emesis. Dissolve tablet on top of tongue, then swallow with saliva. 12 Tablet 0 Active multivitamin (DAILY-ASAD) tablet Take 1 Tablet by mouth daily. Active Active Problems Problem Noted Date Diagnosed Date Hematemesis 04/12/2015 Epigastric pain 03/23/2015 Fe deficiency anemia 03/23/2015 Chronic anemia 01/05/2015 Drug-induced leukopenia 01/01/2015 Encounter for long-term (current) use of antibio tics 09/17/2014 Hypokalemia 05/15/2014 Vomiting 05/15/2014 Renal insufficiency, mild 05/12/2014 Acute pulmonary blastomycosis 05/05/2014 Pulmonary granuloma 05/01/2014 Diarrhea 04/29/2014 Endometriosis 04/29/2014 S/P hysterectomy 04/29/2014 Nausea & vomiting 04/29/2014 Chest pain on breathing 04/29/2014 Single lung abscess 04/21/2014 Vaginal discharge 04/21/2014 Urinary tract infection, site not specified 05/2012 Renal calculus, right 11/08/2012 Overview (11/08/2012): With hydronephrosis Atypical chest pain Pain Palliative care encounter Pulmonary blastomycosis Blastomycosis Intractable vomiting with nausea Intractable cyclical vomiting with nausea Hematemesis with nausea Resolved Problems Problem Noted Date Diagnosed Date Resolved Date Supervision of other normal 12/25/2012 04/21/2014 Overview (12/25/2012): Spontaneous ruptured membrane Renal calculus, right 12/25/20122014 Renal colic 11/29/2012 04/21/2014 Renal colic 11/08/2012 04/21/2014 Supervision of other normal 07/17/2011 04/21/2014 SROM (spontaneous rupture of membranes) 07/17/2011 04/21/2014 Overview (07/17/2011): GBS negative Large for gestational age (LGA) 07/17/2011 04/21/2014 Immunizations Immunization Administration Dates Next Due (ADACEL/BOOSTRIX)(10 YR UP) TDAP VACCINE, 0.5ML, IM 12/27/2012 (M-M-R II/PRIORIX)(12 MO UP) MEASLES, MUMPS AND RUBELLA VIRUS VACCINE, 0.5 ML IM/SUBCUT 03/17/1998,07/22/1990 (TDVAX)(7 YRS UP) TETANUS AN D DIPHTHERIA TOXOIDS, ADSORBED (2 LF OF TETANUS TOXOID AND 2 LF OF DIPHTHERIA TOXOID), 0.5ML (PF), IM 08/08/2004 Dt Dtp Dtap Vaccine 01/25/2004, 5,07/08/1993,1989,1989,1989 HIB, Unspecified Formulation 01/25/2004 Hepatitis B Vaccine 12/25/2001,12/05/1999,1997 IPV/OPV 11/22/1994, 4,1989,1989 Family History Medical History Relation Name Comments Other Father Asthma Healthy Mother Healthy Sister Healthy Son Relation Name Status Comments Father Mother Alive Sister Alive Son Alive Social History Tobacco Use Types Packs/Day Years Used Date Smoking Tobacco: Never Smokeless Tobacco: Never Alcohol Use Standard Drinks/Week Comments Yes 0 (1 standard drink = 0.6 oz pur e alcohol) twice a year Comments No Sex and Gender Information Value Date Recorded Sex Assigned at Not on file 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 Gender Identity Not on file Sexual Orientation Not on file Occupation Industry Job Start Date Job End Date Not on file Not on file Not on file Not on file Last Filed Vital Signs Vital Sign Reading Time Taken Comments Blood Pressure 117/73 08/19/2020 10:22 AM CDT Pulse 88 03/11/2020 1:27 PM ROUGH RICE GRADER Temperature 36.6 C (97.9 F) 08/19/2020 8:54 AM CDT Respiratory Rate 15 08/19/2020 10:2 2 AM CDT Oxygen Saturation 100% 08/19/2020 10: 22 AM CDT Inhaled Oxygen Concentration - - Weight 69.7 kg (153 lb 11.2 oz) 08/19/2020 8:54 AM CDT Height 162.6 cm (5' 4 ) 08/19/2020 8:54 AM CDT Body Mass Index 26.38 08/19/2020 8:54 AM CDT Plan of Treatment Health Maintenance Due Date Last Done Comments DTAP/TDAP/TD VACCINES (9 - Td or Tdap) 12/27/2022 12/27/2012, 08/08/2004, 01/25/2004, Additional history exists INFLUENZA VACCINE (#1) 2024 HEPATITIS B VACCINES Completed 12/25/2001, 12/05/1999, 03/17/1998 HPV VACCINES Aged Out No longer eligi ble based on patient's age to complete this topic Medical Devices Implanted Type Area Rehabilitation Clerk Device Identifier Shelf Expiration Date Model / Serial / Lot Flexima Soft Nephrostomy Tube-12/20/2012 Implanted:12/20 by Alpa Seay MD (Quantity not on file) Catheter Right: Kidney Fision KEZIA 01/23/2015 27-185 / / [id number] Stent Contour [id number] 180-235 - S. Implanted:Qty: 1 on 11/12/2012 at [facility] Stent Right: Ureter [employer] 08/29/2013 180-235 / . / [id number] Explanted Type Area Rehabilitation Clerk Device Identifier Shelf Expiration Date Model / Serial / Lot Flexima Soft Nephrostomy Tube-12/04/2012 Implanted:12/04 by Alpa Seay MD (Quantity not on file) Explanted:12/20 by Alpa Seay MD (Quantity not on file) Other Right: Kidney 10/23/2014 / / [id number] Description:12fr Flexima Nep hrostomy Tube Stent Prcflx Plus [id number] 175-254 - [id number] Implanted:Qty: 1 on 11/09/2012 at [facility] Explanted:Qty: 1 on 11/12/2012 at [facility] Stent Right: Ureter [employer]TRESTLE[employer] 07/25/2015 175-254 / / [id number] Stent Prcflx Plus [id number] 175-254 - [id number] Implanted:Qty: 1 on 09/21/2011 at [facility] Explanted:Qty: 1 on 11/15/2012 at [facility] Stent Right: Ureter [employer] 03/26/2013 175-252 / [id number] / [id number] Stent Prcflx Plus [id number] 175-275-06 - [id number] Implanted:Qty: 1 on 11/15/2012 by Jose Alejandro Vargas MD at [facility] Explanted:Qty: 1 on 12/01/2012 at [facility] Stent Right: Ureter [employer] 09/22/2014 175-275-06 / / [id number] Description:Stent with strin g off Insurance [place]ICA[place] Advance Directives For more information, please contact: [phone] * Full Code (Latest Code Status on File) Date Activated Date Inactivated Comments 04/12/2015 2:43 AM 04/15/2015 8:03 PM * Full Code Date Activated Date Inactivated Comments 03/23/2015 3:15 PM 03/23/2015 7:15 PM * Full Code Date Activated Date Inactivated Comments 05/16/2014 12:32 AM 05/21/2014 7:33 PM * Full Code Date Activated Date Inactivated Comments 04/29/2014 10:28 PM 05/13/2014 4:51 PM * Full Code Date Activated Date Inactivated Comments 04/21/2014 2:48 AM 04/26/2014 6:47 PM
--- OUTSIDE RECORDS SUMMARY | 2024-10-06 03:38 | XMS_ITS | Encounter Summary ---
Author Organization [facility] Address [address] [place] [address] Care Team Providers Care Journeyman Plumber Name Role Phone Aleksey Landa MD Primary Care Provider Encounter Details Date Type Department Care Team (Late st Contact Info) Description 10/18/2005 Outpatient Historical [facility] O[facility] [address] [place] [address] Bar Painter MD [address] [facility] [address] [place] [address] Menstrual Disorder NEC (Primary Dx) Social History Tobacco Use Types Packs/Day Years Used Date Smoking Tobacco: Never Assessed Comments Unknown Sex and Gender Information Value Date Recorded Sex Assigned at Not on file 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
--- OUTSIDE RECORDS SUMMARY | 2024-10-06 03:38 | XMS_ITS | Encounter Summary ---
Author Organization [facility] Address [address] [place] [address] Care Team Providers Care Manager Life Sciences Name Role Phone Aleksey Landa MD Primary Care Provider [phone] Encounter Details Date Type Department Care Team (Late st Contact Info) Description 11/01/2005 Outpatient Historical [facility] CANCELLED ADMISSION Shaan Valle MD NO ADDRESS ON FILE Unspecified Orthopedic Aftercare (Primary Dx) Social History Tobacco Use Types Packs/Day Years Used Date Smoking Tobacco: Never Assessed Comments Unknown Sex and Gender Information Value Date Recorded Sex Assigned at Not on file 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
--- OUTSIDE RECORDS SUMMARY | 2024-10-06 03:38 | XMS_ITS | Encounter Summary ---
Author Organization [facility] Address [address] [place] [address] Care Team Providers Care Aws Consultant Name Role Phone Aleksey Landa MD Primary Care Provider + [phone] Reason for Referral * Outpatient Services (Routine) - Closed Specialty Diagnoses / Procedures Referred By Quyen collins Referred To Contact Radiology Diagnoses Hydronephrosis Procedures IR TUBE PLACEMENT Jose Alejandro Vargas MD NO ADDRESS ON FILE [facility] Interventional Radiology [address] [address] [place] [address] Phone: tel: fax: Referral ID Status Reason Start Date Expiration Date Visits Re quested Visits Authorized [id number] Closed 12/19/2012 01/19/2014 1 1 Encounter Details Date Type Department Care Team (Latest Contact Info) Description 12/19/2012 Ancillary Orders [facility] Interventional Radiology [address] [place] [address] [place] [address] Jose Alejandro Vargas MD NO ADDRESS ON FILE Hydronephrosis (Primary Dx) Social History Tobacco Use Types Packs/Day Years Used Date Smoking Tobacco: Never Alcohol Use Standard Drinks/Week Comments No 0 (1 standard drink = 0.6 oz pur e alcohol) Comments Yes Sex and Gender Information Value Date Recorded Sex Assigned at Not on file 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 Narrative 12/20/2012 4:46 PM CDT Fluoroscopically guided right nephrostomy tube exchange and upsizing 12/20/2012. Reason for exam: The patient is a 22-year-old female with a right ureteral stone. A right nephrostomy tube was placed on 11/30/2012. She had that tube exchange and upsized on 12/04/2012. The tube is not functioning well and exchange and upsizing is again requested. Comparisons from 11/30/2012 and 12/04/2012. The procedure and its risks, benefits and alternatives were explained to the patient. Consent to proceed was obtained. The patient received IV Dilaudid only. With the patient in somewhat oblique prone position, the right flank was prepped and draped in the usual fashion. Local anesthesia was achieved around the tube exit site with lidocaine. Contrast was injected through the existing 12 German nephrostomy tube to opacify the right collecting system. The catheter was cut to release the pigtail. A J-wire was advanced through the existing catheter and the catheter was removed. A new 14 German Flexima nephrostomy tube was advanced over the wire. The stiffener was removed and the pigtail was formed in the right renal pelvis. The wire was removed. Contrast injection confirmed proper placement. The pigtail was formed and locked. A spot radiograph was obtained. The catheter was placed to bag drainage. The catheter was secured in place with 2-0 nylon suture. The patient tolerated the procedure well. Procedure Note Alpa Seay MD - 12/20/2012 Fluoroscopically guided right nephrostomy tube exchange and upsizing 12/20/2012. Reason for exam: The patient is a 22-year-old female with a right ureteral stone. A right nephrostomy tube was placed on 11/30/2012. She had that tube exchange and upsized on 12/04/2012. The tube is not functioning well and exchange and upsizing is again requested. Comparisons from 11/30/2012 and 12/04/2012. The procedure and its risks, benefits and alternatives were explained to the patient. Consent to proceed was obtained. The patient received IV Dilaudid only. With the patient in somewhat oblique prone position, the right flank was prepped and draped in the usual fashion. Local anesthesia was achieved around the tube exit site with lidocaine. Contrast was injected through the existing 12 German nephrostomy tube to opacify the right collecting system. The catheter was cut to release the pigtail. A J-wire was advanced through the existing catheter and the catheter was removed. A new 14 German Flexima nephrostomy tube was advanced over the wire. The stiffener was removed and the pigtail was formed in the right renal pelvis. The wire was removed. Contrast injection confirmed proper placement. The pigtail was formed and locked. A spot radiograph was obtained. The catheter was placed to bag drainage. The catheter was secured in place with 2-0 nylon suture. The patient tolerated the procedure well. IMPRESSION Impression: Successful right nephrostomy tube exchange and upsizing. us Jose Alejandro Vargas MD IR ORDERABLES Final Result documented in this encounter Visit Diagnoses Diagnosis Hydronephrosis- Primary Hydronephrosis documented in this encounter Care Teams Aws Consultant Relationship Specialty Start Date End Date Aleksey Landa MD PCP - General Hematology and Oncology 10/20/15 documented as of this encounter
--- OUTSIDE RECORDS SUMMARY | 2024-10-06 03:38 | XMS_ITS | Encounter Summary ---
Author Organization [facility] Address [address] [place] [address] Care Team Providers Care Buyer Grain Name Role Phone Aleksey Landa MD Primary Care Provider Encounter Details Date Type Department Care Team (Latest Contact Info) Description 10/11/2005 Outpatient Historical [facility] [address] [place] [address] Michoacano Bowman MD 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
--- OUTSIDE RECORDS SUMMARY | 2024-10-06 03:38 | XMS_ITS | Encounter Summary ---
Author Organization [facility] Address [address] [place] [address] Care Team Providers Care Academic Department Chair Name Role Phone Aleksey Landa MD Primary Care Provider Encounter Details Date Type Department Care Team (Latest Contact Info) Description 12/09/2012 Ancillary Orders [facility] Interventional Radiology [address] [place] [address] 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
--- OUTSIDE RECORDS SUMMARY | 2024-10-06 03:38 | XMS_ITS | Encounter Summary ---
Author Organization [facility] Address [address] [place] [address] Care Team Providers Care Database Software Technician Name Role Phone Aleksey Landa MD Primary Care Provider + [phone] Reason for Referral * Outpatient Services (Routine) - Closed Specialty Diagnoses / Procedures Referred By Quyen collins Referred To Contact Radiology Diagnoses Pain Procedures XR RETROGRADE PYELOGRM W WO KUB Jose Alejandro Vargas MD NO ADDRESS ON FILE [facility] Radiology OR [address] [place] [phone] Phone: tel: fax: Referral ID Status Reason Start Date Expiration Date Visits Re quested Visits Authorized [id number] Closed 12/27/2012 01/30/2014 1 1 Encounter Details Date Type Department Care Team (Late st Contact Info) Description 12/30/2012 Ancillary Orders [facility] Radiology [place] [address] [place] [phone] Jose Alejandro Vargas MD NO ADDRESS ON FILE Pain (Primary Dx) Social History Tobacco Use Types Packs/Day Years Used Date Smoking Tobacco: Never Alcohol Use Standard Drinks/Week Comments No 0 (1 standard drink = 0.6 oz pur e alcohol) Comments Unknown Sex and Gender Information Value Date Recorded Sex Assigned at Not on file 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 Narrative 12/30/2012 7:55 AM CDT IMPRESSION - see report below. Exam: XR RETROGRADE PYELOGRM W WO KUB Date/Time of Exam: Dec 27, 2012 12:43:00 PM Reason For Exam: Generalized pain. Findings: Multiple intraoperative fluoroscopic images of the abdomen are submitted for interpretation during retrograde pyelogram. Initial images demonstrate opacification of the right collecting system. The renal pelvis and ureter are mildly dilated and ectatic. No filling defects are noted. Mild narrowing is noted of the distal ureter which does not appear to resolve on subsequent images. On the left, there is no filling defect or stricture. No hydronephrosis. No definite calculi identified. Procedure Note Jose Zhang MD - 12/30/2012 IMPRESSION - see report below. Exam: XR RETROGRADE PYELOGRM W WO KUB Date/Time of Exam: Dec 27, 2012 12:43:00 PM Reason For Exam: Generalized pain. Findings: Multiple intraoperative fluoroscopic images of the abdomen are submitted for interpretation during retrograde pyelogram. Initial images demonstrate opacification of the right collecting system. The renal pelvis and ureter are mildly dilated and ectatic. No filling defects are noted. Mild narrowing is noted of the distal ureter which does not appear to resolve on subsequent images. On the left, there is no filling defect or stricture. No hydronephrosis. No definite calculi identified. IMPRESSION Impression: Mild right renal pelviectasis and ureteral dilatation following distal stone extraction. Jose Alejandro Vargas MD DIAGNOSTIC IMAGING ORD ERABLES Final Result documented in this encounter Visit Diagnoses Diagnosis Pain Generalized pain Pain- Primary Generalized pain documented in this encounter Care Teams Database Software Technician Relationship Specialty Start Date End Date Aleksey Landa MD PCP - General Hematology and Oncology 10/20/15 documented as of this encounter
--- OUTSIDE RECORDS SUMMARY | 2024-10-06 03:38 | XMS_ITS | Encounter Summary ---
Author Organization [facility] Address [address] [place] [address] Care Team Providers Care Mixed Crop And Livestock Farmer Name Role Phone Aleksey Landa MD Primary Care Provider [phone] Encounter Details Date Type Department Care Team (Latest Contact Info) Description 12/24/2012 Ancillary Orders [facility] Interventional Radiology [address] [place] [address] 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
--- OUTSIDE RECORDS SUMMARY | 2024-10-06 03:38 | XMS_ITS | Encounter Summary ---
Author Organization [facility] Address [address] [place] [address] Care Team Providers Care Poly Operator Name Role Phone Aleksey Landa MD Primary Care Provider [phone] Reason for Referral * Outpatient Services (Routine) - Closed Specialty Diagnoses / Procedures Referred By Quyen collins Referred To Contact Diagnoses Renal calculus, right Procedures US RENAL Nate Michelle MD NO ADDRESS ON FILE Referral ID Status Reason Start Date Expiration Date Visits Re quested Visits Authorized [id number] Closed 12/09/2012 01/09/2014 1 1 Encounter Details Date Type Department Care Team (Latest Contact Info) Description 12/09/2012 Ancillary Orders [facility] Interventional Radiology [address] [place] [address] 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 Gender Identity Not on file Sexual Orientation Not on file Occupation Industry Job Start Date Job End Date Not on file Not on file Not on file Not on file documented as of this encounter Plan of Treatment Not on file documented as of this encounter Results * US RENAL (12/09/2012 12:11 PM CDT) Anatomical Region Laterality Modality Abdomen Ultrasound 12/09/2012 11:5 1 AM CDT Impressions 12/09/2012 6:39 PM CDT IMPRESSION: see report below Exam: US RENAL Date/Time of Exam: Dec 09, 2012 12:11:23 PM Reason for Exam: calculus of kidney Clinical Indication: 22 year-old female patient, an indwelling right percutaneous nephrostomy has fallen out but there continues to be a right ureteral/internal stent; request has been submitted for evaluation with possible replacement of the nephrostomy. Findings: Imaging performed and confirms a right hydronephrosis to a moderate degree. The right kidney length measures 11.7 cm. The left kidney length measures 11.9 cm, and the lower pole continues to demonstrate a 5 mm stone without left hydronephrosis. Impression: right-sided moderate hydronephrosis, the patient will be scheduled for nephrostomy placement/replacement RC/eaw - uploaded from [employer] - Narrative Procedure Note Nate Michelle MD - 12/09/2012 IMPRESSION IMPRESSION: see report below Exam: US RENAL Date/Time of Exam: Dec 09, 2012 12:11:23 PM Reason for Exam: calculus of kidney Clinical Indication: 22 year-old female patient, an indwelling right percutaneous nephrostomy has fallen out but there continues to be a right ureteral/internal stent; request has been submitted for evaluation with possible replacement of the nephrostomy. Findings: Imaging performed and confirms a right hydronephrosis to a moderate degree. The right kidney length measures 11.7 cm. The left kidney length measures 11.9 cm, and the lower pole continues to demonstrate a 5 mm stone without left hydronephrosis. Impression: right-sided moderate hydronephrosis, the patient will be scheduled for nephrostomy placement/replacement RC/eaw - uploaded from [employer] - us Nate Michelle MD US ORDERABLES Final Result documented in this encounter Visit Diagnoses Diagnosis Renal calculus, right- Primary Calculus of kidney Renal calculus, right Calculus of kidney documented in this encounter Care Teams Poly Operator Relationship Specialty Start Date End Date Aleksey Landa MD PCP - General Hematology and Oncology 10/20/15 documented as of this encounter
--- OUTSIDE RECORDS SUMMARY | 2024-10-06 03:38 | XMS_ITS | Encounter Summary ---
Author Organization [facility] Address [address] [place] [address] Care Team Providers Care Nitrator Operator Name Role Phone Aleksey Landa MD Primary Care Provider Encounter Details Date Type Department Care Team (Late st Contact Info) Description 07/05/2006 Emergency [facility] Emergency Department [address] 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 Gender Identity Not on file Sexual Orientation Not on file documented as of this encounter Plan of Treatment Not on file documented as of this encounter Procedures Procedure Name Priority Date/Time Associated Diagnosis Comments WET PREP GENITAL Routine 07/05/2006 4:19 AM CDT URINALYSIS MICROSCOPY ONLY Routine 07/05/2006 2:49 AM CDT URINALYSIS W/REFLEX MICROSCOPIC Routine 07/05/2006 2:49 AM CDT US PELVIC TRANSVAGINAL Routine 07/05/2006 2:14 AM CDT documented in this encounter Results * WET PREP GENITAL (07/05/2006 4:19 AM CDT) WET PREP GENITAL None Observed None Observed INTERFACE SYSTEM WET YEAST None Observed None Observed INTERFACE SYSTEM WET CLUE CELLS None Observed None Observed INTERFACE SYSTEM 07/05/2006 4:19 AM CDT us Sally Navarrete DO MICROBIOLOGY - GENERAL ORDERABL ES Edited Performing Organization Address [facility] de Phone Number INTERFACE SYSTEM Refer to clinic/hospital department * URINALYSIS MICROSCOPY ONLY (07/05/2006 2:49 AM CDT) WBC URINE 0-2 0 - 2 INTERFACE SYSTEM RBC UA 0-2 0 - 2 INTERFACE SYSTEM HYALINE CAST None Seen 0 - 2 INTERFA CE SYSTEM BACTERIA UA None Seen None Seen INTERFAC E SYSTEM 07/05/2006 2:49 AM CDT us Sally Navarrete DO URINE ORDERABLES Edited Performing Organization Address [facility] Phone Number INTERFACE SYSTEM Refer to clinic/hospital department * (ABNORMAL) URINALYSIS (07/05/2006 2:49 AM CDT) COLOR UA Yellow Straw INTERFACE SYSTEM CLARITY UA Clear Clear INTERFACE SYSTEM LEUKOCYTE ESTERASE UA NEGATIVE NEGATIVE INTERFACE SYSTEM NITRITE UA NEGATIVE NEGATIVE INTERFACE SYSTEM PH UA 7.0 5.0 - 9.0 INTERFACE SYSTEM PROTEIN UA NEGATIVE NEGATIVE INTERFACE SYSTEM GLUCOSE UA NEGATIVE NEGATIVE INTERFACE SYSTEM KETONES UA NEGATIVE NEGATIVE INTERFACE SYSTEM UROBILINOGEN UA 0.2 0.2 INTE RFACE SYSTEM BILIRUBIN UA NEGATIVE NEGATIVE INTERFA CE SYSTEM BLOOD UA NEGATIVE NEGATIVE INTERFACE SYSTEM SPECIFIC GRAVITY UA 1.015 1.005 - 1.030 INTERFACE SYSTEM MICRO EXAM Yes(A) No INTERFACE SYSTEM 07/05/2006 2:49 AM CDT us Sally Navarrete DO URINE ORDERABLES Edited Performing Organization Address [facility] de Phone Number INTERFACE SYSTEM Refer to clinic/hospital department * US PELVIC TRANSVAGINAL (07/05/2006 2:14 AM CDT) Anatomical Region Laterality Modality Pelvis Other 07/05/2006 2:14 AM CDT Narrative 07/05/2006 2:14 AM CDT TRANSVAGINAL PELVIC ULTRASOUND 07/05/2006: HISTORY: Vaginal bleeding for the last 90 days. Negative test. COMPARISONS: None. The uterus is 5.5 x 2.6 x 3.7 cm in size. The uterus is smooth in contour. The myometrium has a normalhomogeneous echo content. The endometrium is 2 mm in thickness. No free fluid is appreciated. The right ovary is 1.4 x 2.3 x 1.8 cm in size and is unremarkable in appearance. Visualization of the left ovary was difficult. The left ovary is approximately 2.0 x 2.0 x 1.7 cm insize. No definite abnormality of the left ovary was appreciated. IMPRESSION: Unremarkable exam. - Dictated By: Alpa Seay M.D. Electronically Signed By: Alpa Seay M.D. Date Signed: 07/05/06 Procedure Note 02/13/2009 TRANSVAGINAL PELVIC ULTRASOUND 07/05/2006: HISTORY: Vaginal bleeding for the last 90 days. Negative test. COMPARISONS: None. The uterus is 5.5 x 2.6 x 3.7 cm in size. The uterus is smooth in contour.The myometrium has a normalhomogeneous echo content. The endometrium is 2 mm in thickness. No free fluid is appreciated. The right ovary is 1.4 x 2.3 x 1.8 cm in size and is unremarkable inappearance. Visualization of the left ovary was difficult. The left ovary isapproximately 2.0 x 2.0 x 1.7 cm insize. No definite abnormality of the left ovary was appreciated. IMPRESSION: Unremarkable exam. - Dictated By: Alpa Seay M.D. Electronically Signed By: Alpa Seay M.D. Date Signed: 07/05/06 Sally ROSS ORDERABLES Final Result documented in this encounter Visit Diagnoses Diagnosis Other chronic pain- Primary documented in this encounter Care Teams Nitrator Operator Relationship Specialty Start Date End Date Aleksey Landa MD PCP - General Hematology and Oncology 10/20/15 documented as of this encounter
--- OUTSIDE RECORDS SUMMARY | 2024-10-06 03:38 | XMS_ITS | Encounter Summary ---
Author Organization [facility] Address [address] [place] [address] Care Team Providers Care Financial Services Specialist Name Role Phone Aleksey Landa MD Primary Care Provider [phone] Reason for Referral * Outpatient Services (Routine) - Closed Specialty Diagnoses / Procedures Referred By Quyen collins Referred To Contact Radiology Diagnoses Hydronephrosis Procedures IR TUBE PLACEMENT Jose Alejandro Vargas MD NO ADDRESS ON FILE [facility] Interventional Radiology [address] [place] [address] [place] [address] Phone: tel: fax: Referral ID Status Reason Start Date Expiration Date Visits Re quested Visits Authorized [id number] Closed 12/04/2012 01/04/2014 1 1 Encounter Details Date Type Department Care Team (Latest Contact Info) Description 12/04/2012 Ancillary Orders [facility] Interventional Radiology [address] [place] [address] [place] [address] Jose Alejandro Vargas MD NO ADDRESS ON FILE Hydronephrosis (Primary Dx) Social History Tobacco Use Types Packs/Day Years Used Date Smoking Tobacco: Never Alcohol Use Standard Drinks/Week Comments No 0 (1 standard drink = 0.6 oz pur e alcohol) Comments Yes Sex and Gender Information Value Date Recorded Sex Assigned at Not on file 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 Gender Identity Not on file Sexual Orientation Not on file Occupation Industry Job Start Date Job End Date Not on file Not on file Not on file Not on file documented as of this encounter Plan of Treatment Not on file documented as of this encounter Results * IR TUBE PLACEMENT (12/04/2012 3:47 PM CDT) Anatomical Region Laterality Modality X-Ray Angiograph y 12/04/2012 1:51 PM CDT Impressions 12/04/2012 5:35 PM CDT Impression: Successful right nephrostomy tube exchange and upsizing Narrative 12/04/2012 5:35 PM CDT Right nephrostogram and fluoroscopically guided right nephrostomy tube exchange and upsizing 12/04/2012. Reason for exam: The patient is a 22-year-old female who is approximately 34 weeks . She has a right renal stone. She underwent right nephrostomy tube placement on 11/30/2012. Early this morning, she noted that the tube was not draining well and that there was leakage of urine around the tube. Evaluation has been requested with possible exchange and upsizing. The procedure and its risks, benefits and alternatives were explained to the patient. Consent to proceed was obtained. The patient received IV Phenergan and Dilaudid. The patient was placed in an oblique prone position on the angiography table. The right flank was prepped and draped in usual fashion. Contrast was injected through the right nephrostomy tube. This opacified a dilated right collecting system. The suture holding the tube in place had previously been broken. It was removed from the skin. Local anesthesia was achieved around the tube exit site with lidocaine. The tube was cut to release the pigtail. A Ocampo wire was advanced through the existing 10 Canadian tube. The existing tube was removed. A new 12 Canadian locking pigtail nephrostomy tube was advanced over the wire. The wire was removed allowing the pigtail to form in the right collecting system. The pigtail was locked. Contrast injection confirmed proper placement. A spot radiograph was obtained. The patient tolerated the procedure well. There were no immediate post procedure complications. The catheter was secured in place with tape as requested by the patient. Procedure Note Alpa Seay MD - 12/04/2012 Right nephrostogram and fluoroscopically guided right nephrostomy tube exchange and upsizing 12/04/2012. Reason for exam: The patient is a 22-year-old female who is approximately 34 weeks . She has a right renal stone. She underwent right nephrostomy tube placement on 11/30/2012. Early this morning, she noted that the tube was not draining well and that there was leakage of urine around the tube. Evaluation has been requested with possible exchange and upsizing. The procedure and its risks, benefits and alternatives were explained to the patient. Consent to proceed was obtained. The patient received IV Phenergan and Dilaudid. The patient was placed in an oblique prone position on the angiography table. The right flank was prepped and draped in usual fashion. Contrast was injected through the right nephrostomy tube. This opacified a dilated right collecting system. The suture holding the tube in place had previously been broken. It was removed from the skin. Local anesthesia was achieved around the tube exit site with lidocaine. The tube was cut to release the pigtail. A Ocampo wire was advanced through the existing 10 Canadian tube. The existing tube was removed. A new 12 Canadian locking pigtail nephrostomy tube was advanced over the wire. The wire was removed allowing the pigtail to form in the right collecting system. The pigtail was locked. Contrast injection confirmed proper placement. A spot radiograph was obtained. The patient tolerated the procedure well. There were no immediate post procedure complications. The catheter was secured in place with tape as requested by the patient. IMPRESSION Impression: Successful right nephrostomy tube exchange and upsizing us Jose Alejandro Vargas MD IR ORDERABLES Final Result documented in this encounter Visit Diagnoses Diagnosis Hydronephrosis- Primary Hydronephrosis- Primary documented in this encounter Care Teams Financial Services Specialist Relationship Specialty Start Date End Date Aleksey Landa MD PCP - General Hematology and Oncology 10/20/15 documented as of this encounter
--- OUTSIDE RECORDS SUMMARY | 2024-10-06 03:38 | XMS_ITS | Encounter Summary ---
Author Organization [facility] Address [address] [place] [address] Care Team Providers Care Water Quality Control Engineer Name Role Phone Aleksey Landa MD Primary Care Provider [phone] Encounter Details Date Type Department Care Team (Late st Contact Info) Description 11/25/2012 Ancillary Orders [facility] [place] [address] [place] [phone] Jose Alejandro Vargas MD NO ADDRESS ON FILE Pain (Primary Dx) Social History Tobacco Use Types Packs/Day Years Used Date Smoking Tobacco: Never Alcohol Use Standard Drinks/Week Comments No 0 (1 standard drink = 0.6 oz pur e alcohol) Comments Yes Sex and Gender Information Value Date Recorded Sex Assigned at Not on file 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 Exam was auto-finalized. Procedure Note Tamara Dyer, RT - 11/25/2012 Order information only. Exam was auto-finalized. us Jose Alejandro Vargas MD DIAGNOSTIC IMAGING ORD ERABLES Final Result documented in this encounter Visit Diagnoses Diagnosis Pain Generalized pain Pain- Primary Generalized pain documented in this encounter Care Teams Water Quality Control Engineer Relationship Specialty Start Date End Date Aleksey Landa MD PCP - General Hematology and Oncology 10/20/15 documented as of this encounter
--- OUTSIDE RECORDS SUMMARY | 2024-10-06 03:38 | XMS_ITS | Encounter Summary ---
Author Organization [facility] Address [address] [place] [address] Care Team Providers Care Government Employee Name Role Phone Aleksey Landa MD Primary Care Provider Encounter Details Date Type Department Care Team (Late st Contact Info) Description 10/16/2005 Outpatient Historical HIS CANCELLED ADMISSION [place] Bowman MD [address] [facility] [address] [place] [phone] Social History Tobacco Use Types Packs/Day Years Used Date Smoking Tobacco: Never Assessed Comments Unknown Sex and Gender Information Value Date Recorded Sex Assigned at Not on file 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
--- OUTSIDE RECORDS SUMMARY | 2024-10-06 03:38 | XMS_ITS | Clinical Summary ---
Author Organization [facility] Address [address] [facility] [place] [address] Care Team Providers Care Aircraft Engineer Name Role Phone Unavailable Primary Care Provider Unavailabl e Allergies Active Allergy Reactions Criticality Noted Date Comments Ceftriaxone Nausea and Vomiting Low 07/09/2024 Chlorhexidine Gluconate Hives High 11/08/2012 Droperidol Hallucination Low 09/16/2023 Ketorolac Hives High 11/20/2014 Levofloxacin Unknown 10/19/2015 Meperidine Delirium Medium 04/29/2014 Metoclopramide Anaphylaxis High 01/12/2009 Nitrofurantoin Monohyd/M-Cryst Hives,Nausea and Vomiting High 10/23/2015 Prochlorperazine Anaphylaxis High 11/08/2012 Promethazine Itching Low 09/14/2014 Sulfamethoxazole-Trimetho prim Itching Low 04/25/2014 Vancomycin Other (See Comments) 10/19/2015 Kidney failure Medications ondansetron (ZOFRAN ODT) 4 mg Tablet, Rapid Dissolve Take 1 Tablet (4 mg) by mouth every 6 hours as needed for Nausea/Emesis. Dissolve tablet on top of tongue, then swallow with saliva. 12 Tablet 0 0 Active multivitamin (DAILY-ASAD) tablet Take 1 Tablet by mouth daily. 1 Active albuterol-budes onide 90-80 mcg/actuation HFA Aerosol Inhaler Take 90 mcg by inhalation 2 times daily. Active HYDROcodone-harvey taminophen (NORCO) 5-325 mg tabletIndicatio ns:Flank pain Take 1-2 Tablets by mouth every 6 hours as needed for Pain. 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 Pulmonary granuloma 05/01/2014 Endometriosis 04/29/2014 Chest pain on breathing 04/29/2014 Diarrhea 04/29/2014 Nausea \T\ vomiting 04/29/2014 S/P hysterectomy 04/29/2014 Vaginal discharge 04/21/2014 Single lung abscess 04/21/2014 Urinary tract infection, site not specified 05/2012 Renal calculus, right 11/08/2012 Overview (07/22/2020): With hydronephrosis Atypical chest pain Palliative care encounter Pain Pulmonary blastomycosis Blastomycosis Intractable vomiting with nausea Intractable cyclical vomiting with nausea Hematemesis with nausea Resolved Problems Problem Noted Date Diagnosed Date Resolved Date Renal calculus, right 12/25/20122014 Supervision of other normal 12/25/2012 04/21/2014 Overview (07/21/2020): Spontaneous ruptured membrane Renal colic 11/29/2012 04/21/2014 Renal colic 11/08/2012 04/21/2014 Large for gestational age (LGA) 07/17/2011 04/21/2014 SROM (spontaneous rupture of membranes) 07/17/2011 04/21/2014 Overview (07/21/2020): GBS negative Supervision of other normal 07/17/2011 04/21/2014 Encounters Date Type Department Care Team Description 09/23/2024 External Device Data STL ABSTRACTION Provider, Abstract 09/02/2024 External Device Data STL ABSTRACTION Provider, Abstract 09/02/2024 External Device Data STL ABSTRACTION Provider, Abstract 08/05/2024 External Device Data STL ABSTRACTION Provider, Abstract 08/05/2024 External Device Data STL ABSTRACTION Provider, Abstract 07/29/2024 External Device Data STL ABSTRACTION Provider, Abstract 07/11/2024 Results Follow-Up [facility] Emergency Medicine [address] [place] [address] Heather French RN GI PATHOGEN PCR PANEL, URINE CULTURE 07/09/2024 12:41 PM CDT - 07/09/2024 7:23 PM CDT Emergency [facility] Emergency Medicine [address] [place] [address] Sandra Manzo MD Acute cystitis with hematuria (Primary Dx); Infectious gastroenteritis Discharge Disposition: Home or Self Care 07/09/2024 Travel from Last 3 Months Immunizations Immunization Administration Dates Next Due (ADACEL/BOOSTRIX)(10 [...] Date Smoking Tobacco: Never Smokeless Tobacco: Never Tobacco Cessation:Counseling Given: Not Answered Alcohol Use Standard Drinks/Week Comments Not Currently 0 (1 standard drink = 0.6 oz pur e alcohol) once a year Feeling Safe Answer Date Recorded Are you in a relationship wi th someone who hurts you emotionally and/or physically? 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 Gender Identity Not on file Sexual Orientation Not on file Last Filed Vital Signs Vital Sign Reading Time Taken Comments Blood Pressure 111/90 07/09/2024 7:00 PM CDT Pulse 79 07/09/2024 7:00 PM CDT Temperature 36.2 C (97.1 F) 07/09/2024 12:41 PM CDT Respiratory Rate 18 07/09/2024 7:00 PM CDT Oxygen Saturation 100% 07/09/2024 7:00 PM CDT Inhaled Oxygen Concentration - - Weight 64.3 kg (141 lb 12.8 oz) 025 12:41 PM CDT Height 175.3 cm (5' 9 ) 07/09/2024 12:4 1 PM CDT Body Mass Index 20.94 07/09/2024 12:41 PM CDT Plan of Treatment Health Maintenance Due Date Last Done Comments DTAP/TDAP/TD VACCINES (9 - Td or Tdap) 12/27/2022 12/27/2012, 08/08/2004, 01/25/2004, Additional history exists INFLUENZA VACCINE (#1) 2024 01/17/2018, 2014 HEPATITIS B VACCINES Completed 12/25/2001, 12/25/2001, 12/05/1999, Additional history exists HPV VACCINES Aged Out No longer eligi ble based on patient's age to complete this topic Medical Devices Implanted Type Area Fan Blade Aligner Device Identifier Shelf Expiration Date Model / Serial / Lot Flexima Soft Nephrostomy Tube-12/20/2012 Implanted:12/20 by Alpa Seay MD (Quantity not on file) Catheter Right: [employer] 01/23/2015 27-185 / / [id number] Stent Contour [id number] 180-235 - S. Implanted:Qty: 1 on 11/12/2012 Stent Right: Ureter [employer]/AN EMPLOYEE SPONSOR OR ADVOCATE AND 08/29/2013 180-235 / . / [id number] Explanted Type Area Fan Blade Aligner Device Identifier Shelf Expiration Date Model / Serial / Lot Flexima Soft Nephrostomy Tube-12/04/2012 Implanted:12/04 by Alpa Seay MD (Quantity not on file) Explanted:12/20 by Alpa Seay MD (Quantity not on file) Other Right: Kidney 10/23/2014 / / [id number] Description:12fr Flexima Nep hrostomy Tube Stent Prcflx Plus [id number] 175-254 - [id number] Implanted:Qty: 1 on 11/09/2012 Explanted:Qty: 1 on 11/12/2012 Stent Right: Ureter [employer]/AN EMPLOYEE SPONSOR OR ADVOCATE AND 07/25/2015 175-254 / / [id number] Stent Prcflx Plus [id number] 175-252 - [id number] Implanted:Qty: 1 on 09/21/2011 Explanted:Qty: 1 on 11/15/2012 Stent Right: Ureter [employer]/AN EMPLOYEE SPONSOR OR ADVOCATE AND 03/26/2013 175-252 / [id number] 0 / [id number] Stent Prcflx Plus [id number] 175-275-06 - [id number] Implanted:Qty: 1 on 11/15/2012 by Jose Alejandro Vargas MD Explanted:Qty: 1 on 12/01/2012 Stent Right: Ureter [employer]/AN EMPLOYEE SPONSOR OR ADVOCATE AND 09/22/2014 175-275-06 / / [id number] Description:Stent with strin g off Procedures Procedure Name Priority Date/Time Associated Diagnosis Comments GI PATHOGEN PCR PANEL Stat 07/09/2024 5:06 PM CDT C. DIFFICILE DETECTION Stat 5:[address] ABDOMEN PELVIS WO CONTRAST Stat 07/09/2024 3:08 PM CDT C-REACTIVE PROTEIN Stat 07/09/2024 12 :58 PM CDT BRAIN NATRIURETIC PEPTIDE, BNP OR PROBNP Stat 07/09/2024 12:58 PM CDT COMPREHENSIVE METABOLIC PANEL Stat 07/09/2024 12:58 PM CDT CBC WITH DIFFERENTIAL Stat 07/09/2024 12:58 PM CDT URINALYSIS MICROSCOPY ONLY Stat 07/09/2024 12:41 PM CDT URINALYSIS W/REFLEX MICROSCOPIC Stat 07/09/2024 12:41 PM CDT URINE CULTURE Stat 07/09/2024 12:41 PM CDT from Last 3 Months Results * GI PATHOGEN PCR PANEL (07/09/2024 5:06 PM CDT) Pathologist [facility] [place] GI Pathogen PCR panel NOT DETECTED No nucleic acids detected. 07/10/2024 6:59 PM CDT [facility] Stool STOOL SPECIMEN / Unknown Collection / Unknown 07/09/2024 5:06 PM CDT 07/09/2024 5:38 PM CDT Narrative [facility] - 07/10/2024 6:59 PM CDT The Film Array GI Panel is a multiplexed nucleic acid detection test for 22 targets of bacteria, viruses, and parasites in stool that cause infectious diarrhea. Bacteria: Campylobacter C. difficile Plesiomonas shigelloides Salmonella Vibrio Vibrio cholerae Yersinia enterocolitica Enteroaggregative E. Coli (EAEC) Enteropathogenic E. Coli (EPEC) Enterotoxigenic E. Coli (ETEC) Shiga-like toxin-producing E. Coli (STEC) E. Coli O157 Shigella/Enteroinvasive E. Coli (EIEC) Viruses: Adenovirus F 40/41 Astrovirus Norovirus GI/GII Rotavirus A Sapovirus Parasites: Cryptosporidium Cyclospora cayetanensis Entamoeba histolytica Giardia duodenalis Sandra Manzo MD MICROBIOLOGY - GENERAL ORDERABL ES Final Result [facility] CLIA # [id number] [address] [place] [id number] * C. DIFFICILE DETECTION (07/09/2024 5:06 PM CDT) C DIFFICILE TOXIN NOT DETECTED Not Detected 07/09/2024 5:35 PM CDT [facility] Stool STOOL SPECIMEN / Unknown Collection / Unknown 07/09/2024 5:06 PM CDT 07/09/2024 5:13 PM CDT Narrative [facility] - 07/09/2024 5:35 PM CDT This assay tests for C. difficile Toxin A and/or Toxin B, by non-PCR methodology. us Sandra Manzo MD MICROBIOLOGY - GENERAL ORDERABL ES Final Result [facility] CLIA # [id number] [address] [place] [address] * CT ABDOMEN PELVIS WO CONTRAST (07/09/2024 3:08 PM CDT) Anatomical Region Laterality Modality Abdomen Computed Tomogra phy 07/09/2024 3:03 PM CDT Impressions 07/09/2024 3:47 PM CDT IMPRESSION: 1. No significant interval change. 2. No obstructive uropathy. Narrative 07/09/2024 3:47 PM CDT EXAM: CT ABDOMEN PELVIS WO CONTRAST DATE/TIME OF EXAM: 07/09/2024 3:08 PM REASON FOR STUDY: Flank pain, stone disease suspected DIAGNOSIS: See Reason for Exam COMPARISON: June 26, 2024, 04/12/2024, 09/16/2023, 02/25/2023, 04/30/2020, and prior TECHNIQUE: CT AP without intravenous contrast. INTRAVENOUS CONTRAST: NONE FINDINGS: LUNG BASES: Clear. Normal heart size. No pericardial effusion. ABDOMEN/PELVIS: Limited evaluation of the solid organs and vasculature without the use of intravenous contrast. LIVER: Within normal limits. No focal hepatic lesions on this single phase examination. GALLBLADDER and BILIARY SYSTEM: Cholecystectomy. SPLEEN: Normal. PANCREAS: Normal. ADRENAL GLANDS: Normal. KIDNEYS: Mild atrophy and cortical scarring involving the inferior pole of the left kidney. The right kidney is within normal limits. A few small left intrarenal calyceal calculi measuring up to 3 mm, similar to prior. Several periureteral calcifications within the pelvis which appear to be vascular in nature. No definite radiopaque ureteral calculi. No obstructive uropathy. BOWEL: Stomach within normal limits. Nondilated small bowel loops. Colonic bowel loops within normal limits. APPENDIX: No evidence of appendicitis. LYMPH NODES: No pathologically enlarged lymph nodes. VASCULATURE: Incompletely assessed without IV contrast. PERITONEUM: No free fluid. No pneumoperitoneum. BLADDER: Normal. REPRODUCTIVE ORGANS: Hysterectomy. BODY WALL: Unremarkable. BONES: No acute or aggressive osseous lesions. Procedure Note Sharon Gusman MD - 07/09/2024 EXAM: CT ABDOMEN PELVIS WO CONTRAST DATE/TIME OF EXAM: 07/09/2024 3:08 PM REASON FOR STUDY: Flank pain, stone disease suspected DIAGNOSIS: See Reason for Exam COMPARISON: June 26, 2024, 04/12/2024, 09/16/2023, 02/25/2023, 04/30/2020, and prior TECHNIQUE: CT AP without intravenous contrast. INTRAVENOUS CONTRAST: NONE FINDINGS: LUNG BASES: Clear. Normal heart size. No pericardial effusion. ABDOMEN/PELVIS: Limited evaluation of the solid organs and vasculature without the use of intravenous contrast. LIVER: Within normal limits. No focal hepatic lesions on this single phase examination. GALLBLADDER and BILIARY SYSTEM: Cholecystectomy. SPLEEN: Normal. PANCREAS: Normal. ADRENAL GLANDS: Normal. KIDNEYS: Mild atrophy and cortical scarring involving the inferior pole of the left kidney. The right kidney is within normal limits. A few small left intrarenal calyceal calculi measuring up to 3 mm, similar to prior. Several periureteral calcifications within the pelvis which appear to be vascular in nature. No definite radiopaque ureteral calculi. No obstructive uropathy. BOWEL: Stomach within normal limits. Nondilated small bowel loops. Colonic bowel loops within normal limits. APPENDIX: No evidence of appendicitis. LYMPH NODES: No pathologically enlarged lymph nodes. VASCULATURE: Incompletely assessed without IV contrast. PERITONEUM: No free fluid. No pneumoperitoneum. BLADDER: Normal. REPRODUCTIVE ORGANS: Hysterectomy. BODY WALL: Unremarkable. BONES: No acute or aggressive osseous lesions. IMPRESSION: 1. No significant interval change. 2. No obstructive uropathy. us Sandra Manzo MD CT ORDERABLES Final Result * (ABNORMAL) CBC WITH DIFFERENTIAL (07/09/2024 12:58 PM CDT) WBC 4.8 4.0 - 10.0 K/uL 07/09/2024 1:25 PM [facility] RBC 4.86 3.93 - 5.22 M/uL 07/09/2024 1:25 PM [facility] HEMOGLOBIN 14.2 11.2 - 15.7 g/dL 07/09/2024 1:25 PM [facility] HEMATOCRIT 42.2 34.1 - 44.9 % 07/09/2024 1:25 PM [facility] MCV 86.8 79.4 - 94.8 fL 07/09/2024 1:25 PM [facility] MCH 29.2 25.6 - 32.2 pg 07/09/2024 1:25 PM [facility] MCHC 33.6 32.2 - 35.5 g/dL 07/09/2024 1:25 PM [facility] RDW 12.5 11.0 - 14.5 % 07/09/2024 1:25 PM [facility] RDW-STDEV 39.7 36.9 - 56.9 fL 07/09/2024 1:25 PM [facility] PLATELETS 210 163 - 337 K/uL 07/09/2024 1:25 PM [facility] MPV 11.1 10.0 - 14.8 fL 07/09/2024 1:25 PM [facility] NEUTROPHILS 62 34 - 71 % 07/09/2024 1:25 PM [facility] LYMPHOCYTES 29 19 - 52 % 07/09/2024 1:25 PM [facility] MONOCYTES 7 5 - 13 % 07/09/2024 1:25 PM [facility] EOSINOPHILS 1 1 - 6 % 07/09/2024 1:25 PM [facility] BASOPHILS 1 0 - 1 % 07/09/2024 1:25 PM CDT [facility] IMMATURE GRANULOCYTES 0 % 07/09/2024 1:25 PM CDT [facility] NEUTROPHIL ABSOLUTE 2.96 1.56 - 6.13 K/uL 07/09/2024 1:25 PM CDT [facility] LYMPHOCYTE ABSOLUTE 1.40 1.20 - 3.40 K/uL 07/09/2024 1:25 PM CDT [facility] MONOCYTE ABSOLUTE 0.33 0.24 - 0.36 K/uL 07/09/2024 1:25 PM CDT [facility] EOSINOPHIL ABSOLUTE 0.03(L) 0.04 - 0.36 K/uL 07/09/2024 1:25 PM CDT [facility] BASOPHILS ABSOLUTE 0.04 0.01 - 0.08 K/uL 07/09/2024 1:25 PM CDT [facility] IMMATURE GRANULOCYTES ABSOLUTE 0.01 K/uL 07/09/2024 1:25 PM CDT [facility] Blood BLOOD SPECIMEN / Unknown Collection / Unknown 07/09/2024 12:58 PM CDT 07/09/2024 1:21 PM CDT Sandra Manzo MD HEMATOLOGY ORDERABLES Final Res ult [facility] CLIA # [id number] [address] [place] [phone] * C-REACTIVE PROTEIN (07/09/2024 12:58 PM CDT) CRP <3.0 <5.0 mg/L 07/09/2024 1:3 7 PM CDT [facility] Blood BLOOD SPECIMEN / Unknown Collection / Unknown 07/09/2024 12:58 PM CDT 07/09/2024 1:21 PM CDT us Sandra Manzo MD CHEMISTRY ORDERABLES Final Resu lt [facility] CLIA # [id number] [address] [place] [address] * BRAIN NATRIURETIC PEPTIDE, BNP OR PROBNP (07/09/2024 12:58 PM CDT) Pathologist [facility] [place] PROBNP, N TERMINAL 54 0 - 125 pg/mL 07/09/2024 1:37 PM CDT [facility] Comment: INTERPRETIVE COMMENT based on diagnosis: Diagnostic NT pro-BNP cutoffs for Heart Failure in the absence of renal failure is suggested for the following ranges <75 years: <125 pg/mL >=75 years: <450 pg/mL Exclusionary rule out cut-point for Acute Decompensated Heart Failure(ADHF) All ages: <300 pg/mL Diagnostic NT pro-BNP cutoffs for Acute Decompensated Heart Failure(ADHF) in the absence of renal failure is suggested for the following ages <50 years: > 450 pg/mL 50-75 years: > 900 pg/mL >75 years: >1800 pg/mL Blood BLOOD SPECIMEN / Unknown Collection / Unknown 07/09/2024 12:58 PM CDT 07/09/2024 1:21 PM CDT us Sandra Manzo MD CHEMISTRY ORDERABLES [id number] [address] [place] [address] * (ABNORMAL) COMPREHENSIVE METABOLIC PANEL (07/09/2024 12:58 PM CDT) [facility] SODIUM 140 136 - 145 mmol/L 07/09/2024 1:37 PM CDT [facility] POTASSIUM 3.7 3.5 - 5.1 mmol/L 07/09/2024 1:37 PM CDT [facility] CHLORIDE 103 98 - 107 mmol/L 07/09/2024 1:37 PM CDT [facility] CO2 25 22 - 29 mmol/L 07/09/2024 1:37 PM CDT [facility] CALCIUM 10.3(H) 8.6 - 10.0 mg/dL 07/09/2024 1:37 PM [facility] BUN 12 6 - 20 mg/dL 07/09/2024 1:37 PM [facility] CREATININE 0.81 0.51 - 0.95 mg/dL 07/09/2024 1:37 PM [facility] GLUCOSE 82 74 - 99 mg/dL 07/09/2024 1:37 PM [facility] TOTAL PROTEIN 7.7 6.6 - 8.7 g/dL 07/09/2024 1:37 PM [facility] ALBUMIN 4.7 4.0 - 4.9 g/dL 07/09/2024 1:37 PM [facility] BILIRUBIN TOTAL 0.4 <=1.2 mg/dL 07/09/2024 1:37 PM [facility] ALKALINE PHOSPHATASE 64 35 - 104 U/L 07/09/2024 1:37 PM [facility] AST 19 0 - 35 U/L 07/09/2024 1:37 PM [facility] ALT 9 0 - 35 U/L 07/09/2024 1:37 PM [facility] GFR >60 >=60 mL/min/1.7 3 sq meter 07/09/2024 1:37 PM [facility] Comment:eGFR calculated with 2020 CKD-EPI equation. Vegetarian diet, extremely high or low muscle mass, and may affect results. Cystatin C with Glomerular Filtration Rate is a suitable alternative for these patients. ANION GAP 12 5 - 20 mmol/L 07/09/2024 1:37 PM [facility] Blood BLOOD SPECIMEN / Unknown Collection / Unknown 07/09/2024 12:58 PM CDT 07/09/2024 1:21 PM T us Sandra Manzo MD CHEMISTRY ORDERABLES Final Resu lt [facility] CLIA # [id number] [address] [place] [address] * (ABNORMAL) URINALYSIS MICROSCOPY ONLY (07/09/2024 12:41 PM CDT) WBC UA 0-2 0 - 2 /hpf 07/09/2024 1:33 PM CDT [facility] RBC UA 0-2 0 - 2 /hpf 07/09/2024 1:33 PM CDT [facility] BACTERIA UA 1+(A) Negative /hpf 07/09/2024 1:33 PM CDT [facility] EPITHELIAL CELLS, URINE 6-10(A) 0 - 5 /hpf 07/09/2024 1:33 PM CDT [facility] Urine URINE SPECIMEN OBTAINED BY CLEAN CATCH PROCEDURE / Unknown Collection / Unknown 07/09/2024 12:41 PM CDT 07/09/2024 1:23 PM CDT Sandra Manzo MD URINE ORDERABLES Final Result [id number] [address] [place] [id number] * (ABNORMAL) URINALYSIS WITH REFLEX MICROSCOPIC (07/09/2024 12:41 PM CDT) COLOR UA Yellow Pale to Dark Yellow 07/09/2024 1:33 PM CDT [facility] CLARITY UA Slightly Cloudy(A) Clear 07/09/2024 1:33 PM CDT [facility] SPECIFIC GRAVITY UA 1.025 1.003 - 1.035 07/09/2024 1:33 PM CDT [facility] PH UA 6.0 5.0 - 8.0 07/09/2024 1:33 PM CDT [facility] LEUKOCYTE ESTERASE UA 1+(A) Negative 07/09/2024 1:33 PM CDT [facility] NITRITE UA Negative Negative 07/09/2024 1:33 PM CDT [facility] PROTEIN UA Trace(A) Negative 07/09/2024 1:33 PM CDT [facility] GLUCOSE UA Negative Negative 07/09/2024 1:33 PM CDT [facility] KETONES UA Negative Negative 07/09/2024 1:33 PM CDT [facility] UROBILINOGEN UA 0.2 <2.0 mg/dL 1:33 PM CDT [facility] BILIRUBIN UA Negative Negative 07/09/2024 1:33 PM CDT [facility] BLOOD UA Negative Negative 07/09/2024 1:33 PM CDT [facility] Urine URINE SPECIMEN OBTAINED BY CLEAN CATCH PROCEDURE / Unknown Collection / Unknown 07/09/2024 12:41 PM CDT 07/09/2024 1:23 PM CDT us Sandra Manzo MD URINE ORDERABLES Final Result Performing Organization Address [facility]/ZIP Co de Phone Number [facility] CLIA # [id number] [address] [place] [address] * URINE CULTURE (07/09/2024 12:41 PM CDT) CULTURE Polymicrobial growth consistent with normal urethral charo and/or colonizing bacteria 07/11/2024 12:40 PM CDT [facility] Urine URINE SPECIMEN OBTAINED BY CLEAN CATCH PROCEDURE / Unknown Collection / Unknown 07/09/2024 12:41 PM CDT 07/09/2024 2:11 PM CDT us Sandra Manzo MD MICROBIOLOGY - GENERAL ORDERABL ES Final Result Performing Organization Address [facility]/ZIP Co de Phone Number [facility] CLIA # [id number] [address] [address] [place], [place] [address] from Last 3 Months Insurance [place]ICA[place]
--- OUTSIDE RECORDS SUMMARY | 2024-10-06 03:38 | XMS_ITS | Encounter Summary ---
Author Organization [facility] Address [address] [place] [address] Care Team Providers Care Artist Relationship Manager Name Role Phone Aleksey Landa MD Primary Care Provider [phone] Encounter Details Date Type Department Care Team ([facility] st Contact Info) Description 01/09/2015 Nurse Triage Report [id number] ABSTRACTION Winsome Carter RN Social History Tobacco Use Types Packs/Day Years Used Date Smoking Tobacco: Never Alcohol Use Standard Drinks/Week Comments No 0 (1 standard drink = 0.6 oz pur e alcohol) Comments No Sex and Gender Information Value Date Recorded Sex Assigned at Not on file Legal Sex Female 4:38 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 Report feedback to Dr. Bradshaw. Associated Symptoms: 102 (po), chest pain, vomiting x6 green bile, shortness of breath Onset: 24 hours Location: generalized Pain Assessment: 1 - 10 with 10 being the most severe pain 10 Treatment so far for current presenting problem: tylenol History (Clinical Problems): (endometriosis) History (Oncology/Hematology Diagnosis): not assessed due to severity of symptoms Treatment for oncology or hematology diagnosis: not assessed due to severity of symptoms Date of last oncology or hematology specific treatment: not assessed due to severity of symptoms OB: Are you having contractions 5 minutes apart for 1 hour? not assessed due to severity of symptoms OB: Are you leaking any fluid vaginally? not assessed due to severity of symptoms OB: Are you having any vaginal bleeding? (Indicate color and amount) not assessed due to severity of symptoms OB: Is your baby moving normally? not assessed due to severity of symptoms Medications: not assessed due to severity of symptoms Medications and start of each - oncology related: not assessed due to severity of symptoms Medication reactions: not assessed due to severity of symptoms <<<<<<<< TRIAGE NOTE >>>>>>>> Triage Note: Wellness Instructor Winsome Carter added this note on Jan 09 2015 12:33PM: Patient refused/ declined 911, she insisted on having her doctor paged. Patient aware of 911 disposition. <<<<<<<< TRIAGE/OUTCOME >>>>>>>> Guideline Title: Chest Pain Recommended Disposition: Activate EMS 911 Original Inclination: Call or see Provider > 24 hrs Intended Action: Seek care in ER Physician Contacted: No New onset or worsening shortness of breath or difficulty breathing ? YES documented in this encounter Plan of Treatment Not on file documented as of this encounter Visit Diagnoses Not on filedocumented in this encounter Care Teams Artist Relationship Manager Relationship Specialty Start Date End Date Aleksey Landa MD PCP - General Hematology and Oncology 10/20/15 documented as of this encounter
--- OUTSIDE RECORDS SUMMARY | 2024-10-06 03:38 | XMS_ITS | Encounter Summary ---
Author Organization [employer] Address [address] [facility] Attn: Epic [place] [address] Care Team Providers Care Film Developing Machine Operator Name Role Phone Aleksey Landa MD Primary Care Provider Encounter Details Date Type Department Care Team (Late st Contact Info) Description 10/18/2005 Outpatient Historical Bar Painter MD [address] [address] Social History Tobacco Use Types Packs/Day Years Used Date Smoking Tobacco: Never Assessed Comments Unknown Sex and Gender Information Value Date Recorded Sex Assigned at Not on file 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
--- OUTSIDE RECORDS SUMMARY | 2024-10-06 03:38 | XMS_ITS | Encounter Summary ---
Author Organization [facility] Address [address] [place] [address] Care Team Providers Care Pipe Chipper Name Role Phone Aleksey Landa MD Primary Care Provider [phone] Encounter Details Date Type Department Care Team ([facility] st Contact Info) Description 11/21/2014 Nurse Triage Report [id number] ABSTRACTION Alina Pena, RN Social History Tobacco Use Types Packs/Day Years Used Date Smoking Tobacco: Never Alcohol Use Standard Drinks/Week Comments No 0 (1 standard drink = 0.6 oz pur e alcohol) Comments No Sex and Gender Information Value Date Recorded Sex Assigned at Not on file 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 Report feedback to Dr Heber Bradshaw Associated Symptoms: headache, diarrhea, vomiting multiple times, visual changes, no urine output since 10 pm last night Onset: 14 days Location: back of head and left side of head Pain Assessment: 1 - 10 with 10 being the most severe pain 10 Treatment so far for current presenting problem: zofran History (Clinical Problems): MD sent pt to ED yesterday , was being treated with antifungal which she has stopped due to nausea, PCP concerned that fungal infection had spread, pt given pain meds, macrobid, and zofran (fungal infection dg in Apr) History (Oncology/Hematology Diagnosis): NA Treatment for oncology or hematology diagnosis: NA Date of last oncology or hematology specific treatment: NA OB: Are you having contractions 5 minutes apart for 1 hour? NA OB: Are you leaking any fluid vaginally? NA OB: Are you having any vaginal bleeding? (Indicate color and amount) NA OB: Is your baby moving normally? NA Medications: antifungal Medications and start of each - oncology related: NA Medication reactions: EPIC list up to date per patient <<<<<<<< TRIAGE NOTE >>>>>>>> Triage Note: Venetian Blind Machine Operator Alina Pena added this note on Nov 21 2014 10:51AM: Pt advised to go back to ED. Verbalizes understanding. <<<<<<<< TRIAGE/OUTCOME >>>>>>>> Guideline Title: Headache Recommended Disposition: See ED Immediately Original Inclination: Call Provider/See in 24 Intended Action: Seek care in ER Physician Contacted: No New onset of severe or worsening generalized headache AND fever, neck pain with forward head movement (no injury) or altered mental status ? YES documented in this encounter Plan of Treatment Not on file documented as of this encounter Visit Diagnoses Not on filedocumented in this encounter Care Teams Pipe Chipper Relationship Specialty Start Date End Date Aleksey Landa MD PCP - General Hematology and Oncology 10/20/15 documented as of this encounter
--- OUTSIDE RECORDS SUMMARY | 2024-10-06 03:38 | XMS_ITS | Encounter Summary ---
Author Organization [facility] Address [address] [place] [address] Care Team Providers Care Web Database Developer Name Role Phone Aleksey Landa MD Primary Care Provider Encounter Details Date Type Department Care Team (Latest Contact Info) Description 10/11/2005 Outpatient Historical [facility] [address] 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
[2024-10-06 04:41] LABS: Hematocrit 42.5 % (36-47); Hemoglobin 14.20 g/dL (11.27-16.99); Mean Corpuscular HGB Conc 33.4 g/dL (30-55); Mean Corpuscular Hemoglobin 29.2 pg (27-33); Mean Corpuscular Volume 87.3 fl (85-98); Nucleated Red Blood Cells % 0 %; Platelet Count 208 10^3/cmm (157-399); Red Blood Count 4.87 10^6/uL (3.85-5.65); White Blood Count 3.39 10^3/uL (3.29-11.43)
--- NOTE | 2024-10-06 04:57 | W.ED.ABDPA2 ---
HPI - Abdominal Pain General: Chief Complaint: Abdominal Pain Stated Complaint: ABD Pain Time Seen by Provider: 10/06/24 04:14 History of Present Illness: 34-year-old female with a long complicated history. 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 She had a long history of kidney stones prior to that. At one point she was diagnosed with a fungal lung infection, for which she took Sporanox, and amphotericin B. She presents this morning with continued and ongoing epigastric and left upper quadrant discomfort. She states that she was seen at [facility] in [place] last week, had an upper endoscopy and colonoscopy. 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 There was a barium dye test done, and she was diagnosed with delayed gastric emptying. The patient states that she has trouble eating. She can only hold down smoothies at this point, and has not even been able to do that for the past several days. Even water or vitamin water causes her intense left upper quadrant and epigastric tenderness after drinking. No fever. No blood in the vomit. She has an appointment this week for follow-up with her GI specialist there. Related Data Home Medications ?Medication ?Instructions ?Recorded ?Confirmed dronabinol 5 mg capsule (Marinol) 5 mg PO BID PRN appetite 11/26/22 07/08/24 ondansetron HCl 4 mg tablet 4 mg PO Q6H PRN Nausea 11/26/22 07/08/24 Previous Rx's ?Medication ?Instructions ?Recorded tramadol 50 mg tablet 50 mg PO BID PRN pain #14 tabs 11/26/22 methocarbamol 750 mg tablet 750 mg PO Q8H #10 tabs 02/24/23 ciprofloxacin HCl 500 mg tablet 500 mg PO BID 7 days #14 tabs 07/08/24 dicyclomine 10 mg capsule 10 mg PO TID #60 caps 10/06/24 famotidine 40 mg tablet (Pepcid) 40 mg PO DAILY #30 tabs 10/06/24 Allergies Allergy/AdvReac Type Severity Reaction Status Date / Time cephalexin (From Keflex) Allergy Unknown Verified 07/08/24 14:16 metoclopramide (From Reglan) Allergy RASH Verified 07/08/24 14:16 nitrofurantoin (From Allergy RASH Verified 07/08/24 14:16 Macrobid) prochlorperazine (From Allergy RASH Verified 07/08/24 14:16 Compazine) Sulfa (Sulfonamide Allergy RASH Verified 07/08/24 14:16 Antibiotics) sulfamethoxazole (From Allergy Unknown Verified 07/08/24 14:16 Bactrim) trimethoprim (From Bactrim) Allergy Unknown Verified 07/08/24 14:16 ZOFRAN Allergy Unknown Uncoded 07/08/24 14:16 PFSH ED PFSH: Medical History (Updated 10/06/24 @ 06:15 by He Sidhu DO) Acute viral disease Surgical History History of hysterectomy History of appendectomy Hx of cholecystectomy Social History Smoking and tobacco/nicotine status: never used tobacco/nicotine Alcohol intake: current Alcohol intake frequency: holidays/special occasions only Substance/Drug Use: never Physical Exam Const: COMMON NORMALS: no acute distress GENERAL APPEARANCE: cooperative; not ill appearing and not frail appearing HENMT: COMMON NORMALS: normocephalic, atraumatic and Normal external nose present HEAD & SCALP: normocephalic and atraumatic FACE & SINUS: normal facial exam and face symmetric NOSE: Normal external nose present Eye: COMMON NORMALS: Equal, round and reactive pupils present and EOMs intact bilaterally PUPIL: Yes Equal, round and reactive pupils present Neck/C-Spine: GENERAL: Yes trachea midline Chest: CHEST: Yes Symmetrical chest wall rise Resp: COMMON NORMALS: normal respiratory effort, No retractions, No use of accessory muscles and clear to auscultation bilaterally AUSCULTATION: clear to auscultation bilaterally Cardio: COMMON NORMALS: regular rate and regular rhythm RATE: regular rate RHYTHM: regular rhythm GI: COMMON NORMALS: Normal to inspection, nondistended, normoactive bowel sounds present PALPATION: Yes Tenderness to palpation present (GI) (Epigastric) Details: LUQ Extremity: COMMON NORMALS: no pedal edema Neuro: PRUDENCIO COMA SCALE: document GCS findings [place] coma scale eye opening: Spontaneous [place] coma scale verbal response: Orientated Prudencio coma scale motor response: Obey commands Prudencio coma scale total score: 15 SENSORY EXAM: Yes extremities (intact) Psych: COMMON NORMALS: speech normal SPEECH: Yes normal speech Skin: COMMON NORMALS: no rashes or lesions noted GENERAL SKIN EXAM: no rashes or lesions noted Course Vital Signs: Vital signs: Vital Signs Temperature 97.7 F 10/06/24 03:33 Pulse Rate 69 10/06/24 06:00 Respiratory Rate 17 10/06/24 03:33 Blood Pressure 121/83 10/06/24 06:00 Pulse Oximetry 99 10/06/24 06:00 Oxygen Delivery Me thod Room Air 10/06/24 03:33 MDM - Abdominal Pain Medical Decision Making Patient's vital signs are stable. CBC is normal. No significant hematuria. BMP is normal. GFR is 83. CRP is 3. Lipase is 25. She is given Benadryl, Ativan. She has allergies to multiple antiemetics. She is also given Pepcid, GI cocktail, and fluid bolus given the fact that she has 2+ ketones in her urine. She will be discharged to outpatient follow-up. She has an appointment with her GI specialist later this week. We will give her a trial of dicyclomine in the meantime. Lab Data 10/06/24 04:30 10/06/24 04:30 Labs/Radiology: Laboratory Results WBC 3.39 10^3/uL (3.29-11.43) 10/06/24 04:30 RBC 4.87 10^6/uL (3.85-5.65) 10/06/24 04:30 Hgb 14.20 g/dL (11.27-16.99) 10/06/24 04:30 Hct 42.5 % (36-47) 10/06/24 04:30 MCV 87.3 fl (85-98) 10/06/24 04:30 MCH 29.2 pg (27-33) 10/06/24 04:30 MCHC 33.4 g/dL (30-55) 10/06/24 04:30 RDW 11.9 % (12.1-15.1) L 10/06/24 04:30 Plt Count 208 10^3/cmm (157-399) 10/06/24 04:30 MPV 10.2 fL (7.4-10.4) 10/06/24 04:30 Neut % (Auto) 57.8 % 10/06/24 04:30 Lymph % (Auto) 30.4 % 10/06/24 04:30 [place] % (Auto) 9.7 % 10/06/24 04:30 Eos % (Auto) 0.9 % 10/06/24 04:30 Baso % (Auto) 0.9 % 10/06/24 04:30 Neut # (Auto) 1.96 10^3/uL (1.8-7.7) 10/06/24 04:30 Lymph # (Auto) 1.0 10^3/uL (0.8-4.8) 10/06/24 04:30 [place] # (Auto) 0.3 10^3/uL (0.2-0.9) 10/06/24 04:30 Eos # (Auto) 0.0 10^3/uL (0.0-0.8) 10/06/24 04:30 Baso # (Auto) 0.0 10^3/uL (0.0-0.1) 10/06/24 04:30 Nucleated RBC % (auto) 0 % 10/06/24 04:30 Nucleated RBCs # 0.0 /100WBC 10/06/24 04:30 Sodium 139 mmol/L (136-145) 10/06/24 04:30 Potassium 4.1 mmol/L (3.5-5.1) 10/06/24 04:30 Chloride 100 mmol/L (98-107) 10/06/24 04:30 Carbon Dioxide 24 mmol/L (22-29) 10/06/24 04:30 Anion Gap 19.1 (5-19) H 10/06/24 04:30 BUN 10 mg/dL (6-20) 10/06/24 04:30 Creatinine 0.8 mg/dL (0.5-0.9) 10/06/24 04:30 GFR Calculation 81.6 mL/min (90-130) L 10/06/24 04:30 Glucose 82 mg/dL (65-115) 10/06/24 04:30 Calculated Osmolality 286 mOsm/kg (285-295) 10/06/24 04:30 Calcium 9.5 mg/dL (8.5-10.5) 10/06/24 04:30 Total Bilirubin 0.6 mg/dL (0.15-1.2) 10/06/24 04:30 AST 23 U/L (0-32) 10/06/24 04:30 ALT 10 U/L (0-33) 10/06/24 04:30 Alkaline Phosphatase 70 U/L (35-105) 10/06/24 04:30 C-Reactive Protein 3.0 mg/L (0.0-4.9) 10/06/24 04:30 Total Protein 8.0 g/dL (6.6-8.7) 10/06/24 04:30 Albumin 4.7 g/dL (3.5-5.2) 10/06/24 04:30 Globulin 3.3 g/dL (1.3-4.6) 10/06/24 04:30 Lipase 25 U/L (13-60) 10/06/24 04:30 Urine Color Yellow (Yellow) 10/06/24 04:33 Urine Appearance Clear (CLEAR) 10/06/24 04:33 Urine pH 6.5 (5-7) 10/06/24 04:33 Ur Specific [place] 1.018 (1.005-1.030) 10/06/24 04:33 Urine Protein Negative (Negative) 10/06/24 04:33 Urine Glucose (UA) Negative (Normal) 10/06/24 04:33 Urine Ketones 2+ (Negative) H 10/06/24 04:33 Urine Blood Negative (Negative) 10/06/24 04:33 Urine Nitrate Negative (Negative) 10/06/24 04:33 Urine Bilirubin Negative (Negative) 10/06/24 04:33 Urine Urobilinogen 1.0 mg/dL (Negative) 10/06/24 04:33 Ur Leukocyte Esterase Negative (Negative) 10/06/24 04:33 Urine RBC 3-5 /hpf (0-2) 10/06/24 04:33 Urine WBC 0-5 /hpf (0-5) 10/06/24 04:33 Ur Squamous Epith Cells 6-10 /hpf (0-5) 10/06/24 04:33 Amorphous Sediment Not Reportable 10/06/24 04:33 Urine Bacteria Trace /hpf (NONE) 10/06/24 04:33 Hyaline Casts 1.65 /lpf 10/06/24 04:33 No radiology studies performed this visit Discharge Plan Discharge Patient Disposition: Home Clinical Impression: Delayed gastric emptying, Abdominal pain Condition: Stable Prescriptions: New famotidine [Pepcid] 40 mg tablet 40 mg PO DAILY Qty: 30 0RF dicyclomine 10 mg capsule 10 mg PO TID Qty: 60 0RF No Action ciprofloxacin HCl 500 mg tablet 500 mg PO BID 7 Days Qty: 14 0RF Marinol 5 mg Capsule 5 mg PO BID PRN (Reason: appetite) Rx Instructions: administer before lunch and evening meal/dinner Zofran 4 mg Tablet 4 mg PO Q6H PRN (Reason: Nausea) tramadol 50 mg tablet 50 mg PO BID PRN (Reason: pain) Qty: 14 0RF methocarbamol 750 mg tablet 750 mg PO Q8H Qty: 10 0RF Discharge Orders: Discharge ED (Routine); Ordered 10/06/24 Ordered By: He Sidhu Patient Instructions: Abdominal Pain (ED), Opioid Safety, Pain Management, Patient Portal & Isael Instructions Activity Restrictions/Additional Instructions: Follow-up with your doctor later this week. Return for fever, vomiting blood, worsening pain despite treatment, other concerning symptoms. Print Language: Chilean Coding Level of Care Code ED Cosmetology Professor for Jd Alvarez
[2024-10-06 05:01] LABS: Glucose Urine UA Negative (Normal); Nitrate Urine Negative (Negative); Specific Gravity, Urine 1.018 (1.005-1.030)
[2024-10-06 05:03] LABS: Add Urine Microscopic? YES
[2024-10-06 05:12] LABS: Alanine Aminotransferase 10 U/L (0-33); Albumin Level 4.7 g/dL (3.5-5.2); Alkaline Phosphatase 70 U/L (35-105); Blood Urea Nitrogen 10 mg/dL (6-20); Calcium 9.5 mg/dL (8.5-10.5); Carbon Dioxide 24 mmol/L (22-29); Chloride 100 mmol/L (98-107); Creatinine Clr Calc Pharmacy 101.6365; Globulin 3.3 g/dL (1.3-4.6); Glucose 82 mg/dL (65-115); Lipase 25 U/L (13-60); Osmolality Calculated 286 mOsm/kg (285-295); Sodium 139 mmol/L (136-145); Total Protein 8.0 g/dL (6.6-8.7)
[2024-10-06 05:16] LABS: Anion Gap 19.1 (5-19); Aspartate Amino Transferase 23 U/L (0-32); Potassium 4.1 mmol/L (3.5-5.1)
[2024-10-06] MEDS: LORazepam 1 MG/0.5 ML injection IVP (05:30)
[2024-10-06] MEDS: diphenhydrAMINE 50 mg/mL SDV 1mL 25 MG IVP (05:30)
[2024-10-06] MEDS: lidocaine 2% viscous 15 ML, aluminum-mag hydrox-simethicon 30 ML, sucralfate oral liq 1 GM PO (06:23)
== END 2024-10-06 08:47 | disposition home or self-care (01) ==
PROVIDERS: Emergency Provider Emergency Medicine
DX: R10.9 Unspecified abdominal pain (principal); K31.84 Gastroparesis
CPT/HCPCS: 36415; 80053; 81001; 83690; 85025; 86140; 96361; 96374; 96375; 99284; J1200; J2060; J3490; J7030; J9999

== ENCOUNTER → 2024-11-18 15:03 | Outpatient (BNVA) | payer MEDICAID, SELFPAY | PROVIDERS: Visit Provider Nurse Practitioner | DX: J02.9 Acute pharyngitis, unspecified (principal) | CPT/HCPCS: 87070; 87071; 87426; 87880 ==